=== PATIENT | female | born 2000 | race Caucasian/White ===

== ENCOUNTER 2023-07-04 14:00 | Outpatient (OUT) | payer BC, SELFPAY ==
--- NOTE | 2023-07-04 | US_ITS ---
[address] [address] Patient Name: SIDDHARTH FRANK MRN: [id number] date: 2000 Sex: F Assigned Patient Location: US Current Patient Location: US Accession/Order Number: [id number] Exam Date: 07/04/2023 14:02 Report Date: 07/04/2023 15:43 At the request of: ALEX HOWARD Procedure: US OB transvaginal EXAMINATION: US OB transvaginal HISTORY: MISSED MENSES COMPARISON: No relevant comparison available. FINDINGS: Whittington intrauterine gestation Gestational sac: 4.87 cm, 10 weeks 4 days CRL: 2.66 cm, 9 weeks 3 days Yolk sac: 5.6 mm Heart rate: 169 beats minute Cervix: Closed, 3.7 cm Clinical age: 10 weeks 1 day Clinical JORDI: 01/29/2024 Ultrasound age: 9 weeks 3 days Ultrasound JORDI: 02/03/2024 US/US OB transvaginal IMPRESSION: Viable whittington intrauterine gestation measuring 9 weeks 3 days Electronically authenticated by: NEW DIAZ Date: 07/04/2023 15:43
== END 2023-07-04 14:01 | disposition home or self-care (01) ==
LOC: US 14:01
PROVIDERS: Visit Provider Obstetrics & Gynecology
DX: Z34.91 Encounter for supervision of normal pregnancy, unspecified, first trimester (principal); Z3A.10 10 weeks gestation of pregnancy; N92.6 Irregular menstruation, unspecified
CPT/HCPCS: 76817

== ENCOUNTER 2023-07-06 08:11 | Outpatient (OUT) | payer BC, SELFPAY ==
--- OUTSIDE RECORDS SUMMARY | 2023-07-06 08:13 | XMS_ITS | CCD ---
Author Name Unknown Address [address] [place] [address] Organization [facility] Care Team Providers Care Maternal Fetal Physician Name Role Phone Trena Wall Unavailable Alison RECONCILIATION MANAGER-C, Emerald Franco Primary Care Unavailable Alison RECONCILIATION MANAGER-C, Emerald A Attending Unavailable Alison RECONCILIATION MANAGER-C, Emerald A Attending Unavailable Alison RECONCILIATION MANAGER-C, Emerald A Primary Care Unavailable Alison RECONCILIATION MANAGER-C, Emerald A Primary Care Unavailable Alison RECONCILIATION MANAGER-C, Emerald A Attending Unavailable Alison RECONCILIATION MANAGER-C, Emerald A Primary Care Unavailable Alison RECONCILIATION MANAGER-C, Emerald A Attending Unavailable Medications Current Medications Medication Drug Class(es) Dates Sig (Normalized) Sig (Original) hydrOXYzine hydrochloride 10 mg oral tablet (1 source) Antihistamine Start: 08-15-2022 take 1 tablet by mouth twice daily as needed hydrOXYzine HCl 10 MG 1 tablet as needed Orally twice daily for 30 day(s) Jul, Active levonorgestrel 1.5 mg oral tablet (1 source) Progestin, Progestin-containin g Intrauterine Device take 1.5 mg by mouth once Levonorgestrel 1.5 MG as directed Orally once for 28 days Active Completed/Discontinued Medications Medication Drug Class(es) Dates Sig (Normalized) Sig (Original) Falmina (1 source) Falmina Not-Taking sertraline 25 mg oral tablet (1 source) Serotonin Reuptake Inhibitor Start: 12-19-2018 take 1 tablet by mouth every twenty-four hours Zoloft 25 MG 1 tablet Orally Once a day for 90 days Nov, Not-Taking Problems Problem Classification Problem Date Documented Da te Episodic/Chronic Anxiety disorders (3 sources) Generalized anxiety disorder; Translations: [Generalized anxiety disorder] Chronic Results Test Name Value Interpretation Reference Range Facil ity Patient Handouton 04-05-2022 Patient Handout Neurology Tension Headache, Adult A tension headache is a feeling of pain, pressure, or aching in the head. It is often felt over the front and sides of the head. Tension headaches can last from 30 minutes to several days. What are the causes? The cause of this condition is not known. Sometimes, tension headaches are brought on by stress, worry (anxiety), or depression. Other things that may set them off include: ? Alcohol. ? Too much caffeine or caffeine withdrawal. ? Colds, flu, or sinus infections. ? Dental problems. This can include clenching your teeth. ? Being tired. ? Holding your head and neck in the same position for a long time, such as while using a computer. ? Smoking. ? Arthritis in the neck. What are the signs or symptoms? ? Feeling pressure around the head. ? A dull ache in the head. ? Pain over the front and sides of the head. ? Feeling sore or tender in the muscles of the head, neck, and shoulders. How is this treated? This condition may be treated with lifestyle changes and with medicines that help relieve symptoms. Follow these instructions at home: Managing pain ? Take pgrg-ytt-rgvrweu and prescription medicines only as told by your doctor. ? When you have a headache, lie down in a dark, quiet room. ? If told, put ice on your head and neck. To do this: ? Put ice in a plastic bag. ? Place a towel between your skin and the bag. ? Leave the ice on for 20 minutes, 2?3 times a day. ? Take off the ice if your skin turns bright red. This is very important. If you cannot feel pain, heat, or cold, you have a greater risk of damage to the area. ? If told, put heat on the back of your neck. Do this as often as told by your doctor. Use the heat source that your doctor recommends, such as a moist heat pack or a heating pad. ? Place a towel between your skin and the heat source. ? Leave the heat on for 20?30 minutes. ? Take off the heat if your skin turns bright red. This is very important. If you cannot feel pain, heat, or cold, you have a greater risk of getting burned. Eating and drinking ? Eat meals on a regular schedule. ? If you drink alcohol: ? Limit how much you have to: ? 0?1 drink a day for women who are not . ? 0?2 drinks a day for men. ? Know how much alcohol is in your drink. In the [place] one drink equals one 12 oz bottle of beer (355 mL), one 5 oz glass of wine (148 mL), or one 1? oz glass of hard liquor (44 mL). ? Drink enough fluid to keep your pee (urine) pale yellow. ? Do not use a lot of caffeine, or stop using caffeine. Lifestyle ? Get 7?9 hours of sleep each night. Or get the amount of sleep that your doctor tells you to. ? At bedtime, keep computers, phones, and tablets out of your room. ? Find ways to lessen your stress. This may include: ? Exercise. ? Deep breathing. ? Yoga. ? Listening to music. ? Thinking positive thoughts. ? Sit up straight. Try to relax your muscles. ? Do not smoke or use any products that contain nicotine or tobacco. If you need help quitting, ask your doctor. General instructions ? Avoid things that can bring on headaches. Keep a headache journal to see what may bring on headaches. For example, write down: ? What you eat and drink. ? How much sleep you get. ? Any change to your diet or medicines. ? Keep all follow-up visits. Contact a doctor if: ? Your headache does not get better. ? Your headache comes back. ? You have a headache, and sounds, light, or smells bother you. ? You feel like you may vomit, or you vomit. ? Your stomach hurts. Get help right away if: ? You all of a sudden get a very bad headache with any of these things: ? A stiff neck. ? Feeling like you may vomit. ? Vomiting. ? Feeling mixed up (confused). ? Feeling weak in one part or one side of your body. ? Having trouble seeing or speaking, or both. ? Feeling short of breath. ? A rash. ? Feeling very sleepy. ? Pain in your eye or ear. ? Trouble walking or balancing. ? Feeling like you will faint, or you faint. Summary ? A tension headache is pain, pressure, or aching in your head. ? Tension headaches can last from 30 minutes to several days. ? Lifestyle changes and medicines may help relieve pain. This information is not intended to replace advice given to you by your health care provider. Make sure you discuss any questions you have with your health care provider. Document Revised: 03/09/2021 Document Reviewed: 03/09/2021 ElseproVITAL Patient Education ? 2021 [employer]. [facility] Vital Signs Date Time Vital Sign Value Performing Clinician Facility 08-15-2022 11:20-0500 Body height 156.21 cm Trena Wall Other [facility] Other 08-15-2022 11:20-0500 Body mass index (BMI) [Ratio] 26.58 kg/m2 Trena Gaitanault Other [facility] Other 08-15-2022 11:20-0500 Body temperature 98.2 [degF] Trena Gaitanault Other [facility] Other 08-15-2022 11:20-0500 Body weight 64.86 kg Trena Wall Other [facility] Other 08-15-2022 11:20-0500 Diastolic blood pressure 73 mm[Hg] Trena Wall Other [facility] Other 08-15-2022 11:20-0500 Respiratory rate 18 /min Trena Gaitanault Other [facility] Other 08-15-2022 11:20-0500 SaO2% (BldA) [Mass fraction] 97 % Trena Gaitanault Other [facility] Other 08-15-2022 11:20-0500 Systolic blood pressure 119 mm[Hg] Trena Gaitanault Other [facility] Other Encounters Encounter Date Encounter Type Care Provider Facility Start: 07-04-2023 End: 07-04-2023 ambulatory Not Available Start: 04-03-2023 End: 04-04-2023 ambulatory Emerald A Alison RECONCILIATION MANAGER-C Facility: [facility] Start: 03-04-2023 End: 03-05-2023 ambulatory Emerald A Alison RECONCILIATION MANAGER-C Facility[facility] Start: 08-16-2022 End: 08-17-2022 ambulatory Emerald A Alison RECONCILIATION MANAGER-C Facility: [facility] Start: 08-15-2022 End: 08-15-2022 ambulatory Trena Duke Other [facility] Other Start: 08-15-2022 Office outpatient ne w 20 minutes Trena Duke [facility] Start: 04-05-2022 End: 04-06-2022 ambulatory Emerald A Alison RECONCILIATION MANAGER-C Facility: [facility] Payers Date Payer Category Payer [facility] [id number] 2000 Unknown [id number] 2.16.8 [id number] 2000 Unknown [id number] 2.16.8 [id number] 2000 Unknown [id number] 2.16.8 [id number]. 2000 Unknown [id number] 2.16.84 [id number] 2000 Unknown [id number] 2.16.84 [id number] Social History Date Type Detail Facility Unknown if ever smoked [facility] Other Sex Assigned At Sex Assigned At Bir th [facility] Other Evaluation note 08-15-2022 Note Date & Type Note Facility 08-15-2022 Evaluation note Encounter Date Diagnosis Assessment Notes Jul, Anxiety (ICD-10 - F41.9) Take medication as directed. May cut in half. Follow up with primary care provider if needed or establish with [facility] Other History general Narrative - Reported Note Date & Type Note Facility History general Narrative - Reported Type Medical History anxiety Surgical History oral surgery [facility] [employer] Other Summary Purpose Family History No Family History Records FoundNo Family History Records Found Advance Directives No Advanced Directives Records FoundNo Advanced Directives Records Found Additional Source Comments REASON FOR VISIT (unrecogniz ed section and content) ANXIETY INFORMATION SOURCE (unrecogn ized section and content) DATE CREATED AUTHOR 04/05/2023 [facility] DATE CREATED AUTHOR AUTHOR'S ORGANIZ ATION 07/05/2023 [facility] dical Specialists [facility] FOR RECORDS PERTAINING TO PATIENTS WHO ARE OR HAVE BEEN ENROLLED IN A CHEMICAL DEPENDENCY/SUBSTANCEABUSE PROGRAM, SOME INFORMATION MAY BE OMITTED. This clinical summary was aggregated from multiple sources. Caution should be exercised in using it in the provision of clinical care. This summary normalizes information from multiple sources, and as a consequence, information in this document may materially change the coding, format and clinical context of patient data. In addition, data may be omitted in some cases. CLINICAL DECISIONS SHOULD BE BASED ON THE PRIMARY CLINICAL RECORDS. [facility] [employer]. provides no warranty or guarantee of the accuracy or completeness of information in this document.
[2023-07-06 08:53] LABS: Basophils Absolute Auto 0.1 10^3/uL (0.0-0.1); Basophils Percent Auto 0.5 % (0.2-2.0); Eosinophils Absolute Auto 0.2 10^3/uL (0.0-0.7); Eosinophils Percent Auto 1.6 % (0.9-7.0); Hematocrit 39.5 % (36.0-48.0); Hemoglobin 13.6 g/dL (12.0-16.0); Immature Granulocytes Abs Auto 0.04 10^3/uL (0.00-0.03); Immature Granulocytes Pct Auto 0.4 % (0.0-0.5); Lymphocytes Percent Auto 27.5 % (20.5-60.0); Mean Corpuscular HGB Conc 34.4 g/dL (29.9-35.2); Mean Corpuscular Hemoglobin 31.9 pg (26.7-34.0); Mean Corpuscular Volume 92.5 fL (81.0-99.0); Mean Platelet Volume 9.7 fL (9.5-13.5); Monocytes Absolute Auto 0.9 10^3/uL (0.3-0.8); Monocytes Percent Auto 8.5 % (1.7-12.0); Neutrophils Absolute Auto 6.7 10^3/uL (1.4-6.5); Neutrophils Percent Auto 61.5 % (43.0-75.0); Platelet Count 298 10^3/uL (150-450); Red Blood Count 4.27 10^6/uL (4.20-5.40); Red Cell Distribution Width 11.9 % (11.0-15.0); White Blood Count 10.8 10^3/uL (4.0-11.0)
[2023-07-06 09:39] LABS: Estimated Average Glucose 97 mg/dL
[2023-07-07 08:15] LABS: HBsAg Screen Negative (Negative); HCV Ab Non Reactive (Non Reactive); Rapid Plasma Reagin, Quant Non Reactive titer (NonRea<1:1)
[2023-07-07 09:07] LABS: HIV Ab/p24 Ag Screen Non Reactive (Non Reactive)
[2023-07-07 10:07] LABS: Rubella Antibodies, IgG 3.67 index (Immune >0.99)
== END 2023-07-06 08:12 | disposition home or self-care (01) ==
LOC: LAB 08:11
PROVIDERS: Visit Provider Obstetrics & Gynecology
DX: N92.6 Irregular menstruation, unspecified (principal); Z36.0 Encounter for antenatal screening for chromosomal anomalies
CPT/HCPCS: 36415; 83036; 85025; 86592; 86762; 86803; 86850; 86900; 86901; 87086; 87340; 87389

== ENCOUNTER 2023-08-21 20:53 | Outpatient (REF) | payer BC, SELFPAY ==
--- OUTSIDE RECORDS SUMMARY | 2023-08-21 20:56 | XMS_ITS | CCD ---
Author Name Unknown Address [address] [place] [address] Organization [facility] Care Team Providers Care Hearing Therapy Teacher Name Role Phone Trena Wall Unavailable Alison MANAGER ACCOUNT MANAGEMENT-C, Emerald Franco Primary Care Unavailable Alison MANAGER ACCOUNT MANAGEMENT-C, Emerald A Attending Unavailable Alison MANAGER ACCOUNT MANAGEMENT-C, Emerald Alek Attending Unavailable Alison MANAGER ACCOUNT MANAGEMENT-C, Emerald A Primary Care Unavailable Alison MANAGER ACCOUNT MANAGEMENT-C, Emerald A Primary Care Unavailable Alison MANAGER ACCOUNT MANAGEMENT-C, Emerald A Attending Unavailable Alison MANAGER ACCOUNT MANAGEMENT-C, Emerald A Primary Care Unavailable Alison MANAGER ACCOUNT MANAGEMENT-C, Emerald A Attending Unavailable ALEX HOWARD Attending Unavailable Medications Current Medications Medication Drug [...] Results Test Name Value Interpretation Reference Range Balaji kim Patient Handouton 04-05-2022 Patient Handout Neurology Tension [...] instructions at home: Managing pain ? Take vkjf-bdg-kqahiks and prescription medicines only as told by [...] provider. Document Revised: 03/09/2021 Document Reviewed: 03/09/2021 ElseOcean Executive Patient Education ? 2021 [employer]. [facility] Vital Signs Date Time Vital Sign Value Performing Clinician Facility 08-15-2022 11:20-0500 Body height 156.21 cm Trena Gaitanault Other [facility] Other 08-15-2022 11:20-0500 Body mass index (BMI) [Ratio] 26.58 kg/m2 Trena Duke Other [facility] Other 08-15-2022 11:20-0500 Body temperature 98.2 [degF] Trena Duke Other [facility] Other 08-15-2022 11:20-0500 Body weight 64.86 kg Trena Gaitanault Other [facility] Other 08-15-2022 11:20-0500 Diastolic blood pressure 73 mm[Hg] Trena Duke Other [facility] Other 08-15-2022 11:20-0500 Respiratory rate 18 /min Trena Duke Other [facility] Other 08-15-2022 11:20-0500 SaO2% (BldA) [Mass fraction] 97 % Trena Duke Other [facility] Other 08-15-2022 11:20-0500 Systolic blood pressure 119 mm[Hg] Trena Duke Other [facility] Other Encounters Encounter Date Encounter Type Care Provider Facility Start: 07-25-2023 End: 07-25-2023 ambulatory ALEX LEE Not Available Start: 07-04-2023 End: 07-04-2023 ambulatory ALEX LEE Not Available Start: 04-03-2023 End: 04-04-2023 ambulatory Emerald A Alison MANAGER ACCOUNT MANAGEMENT-C Facility: [facility] Start: 03-04-2023 End: 03-05-2023 ambulatory Emerald A Alison MANAGER ACCOUNT MANAGEMENT-C Facility: [facility] Start: 08-16-2022 End: 08-17-2022 ambulatory Emerald A Alison MANAGER ACCOUNT MANAGEMENT-C Facility[facility] Start: 08-15-2022 End: 08-15-2022 ambulatory Trena Wall Other [facility] Other Start: 08-15-2022 Office outpatient ne w 20 minutes Trena Wall [facility] Start: 04-05-2022 End: 04-06-2022 ambulatory Emerald A Alison MANAGER ACCOUNT MANAGEMENT-C Facility: [facility] Payers Date Payer Category Payer [facility] [id number] 2000 Unknown [id number] 2.16.8 [id number]. 2000 Unknown [id number] 2.16.8 [id number]. 2000 Unknown [id number] 2.16.8 [id number] 2000 Unknown [id number] 2.16.84 [id number] 2000 Unknown [id number] 2.16.84 [id number] 2000 Unknown [id number] 2.16.84 [id number] Social History Date Type Detail Facility Unknown if ever smoked [facility] Other Sex Assigned At Sex Assigned At Bir th [facility] Other Evaluation note 08-15-2022 Note Date & Type Note Facility 08-15-2022 Evaluation note Encounter Date Diagnosis Assessment Notes Jul, Anxiety (ICD-10 - F41.9) Take medication as directed. May cut in half. Follow up with primary care provider if needed or establish with [facility] Other History general Narrative - Reported Note Date & Type Note Facility History general Narrative - Reported Type Medical History anxiety Surgical History oral surgery [facility] Other Summary Purpose Family History No Family History Records FoundNo Family History Records Found Advance Directives No Advanced Directives Records FoundNo Advanced Directives Records Found Additional Source Comments REASON FOR VISIT (unrecogniz ed section and content) ANXIETY INFORMATION SOURCE (unrecogn ized section and content) DATE CREATED AUTHOR 04/05/2023 [facility] DATE CREATED AUTHOR AUTHOR'S ORGANIZ ATION 07/26/2023 [facility] dical Specialists [employer] FOR RECORDS PERTAINING TO PATIENTS WHO ARE [...] BE BASED ON THE PRIMARY CLINICAL RECORDS. [facility] [employer]. provides no warranty or guarantee of the accuracy or completeness of information in this document.
[2023-08-26 13:07] LABS: Age Gdln ACOG Testing Note (.); IGP, rfx Aptima HPV ASCU Note (.)
== END 2023-08-21 20:54 | disposition home or self-care (01) ==
LOC: LAB 20:53
PROVIDERS: Visit Provider Obstetrics & Gynecology
DX: Z01.419 Encounter for gynecological examination (general) (routine) without abnormal findings (principal)
CPT/HCPCS: G0145

== ENCOUNTER 2023-09-12 14:34 | Outpatient (OUT) | payer BC, SELFPAY ==
--- NOTE | 2023-09-12 14:38 | US_ITS ---
[address] [address] Patient Name: SIDDHARTH FRANK MRN: [id number] date: 2000 Sex: F Assigned Patient Location: [facility] Current Patient Location: [facility] Accession/Order Number: [id number] Exam Date: 09/12/2023 14:39 Report Date: 09/12/2023 15:51 At the request of: ALEX HOWARD Procedure: US OB cervical length EXAMINATION: US OB anatomy, US OB cervical length HISTORY: ANATOMY COMPARISON: Ultrasound OB transvaginal 07/04/2023 TECHNIQUE: Transabdominal sonographic examination was performed for obstetrical and evaluation. FINDINGS: Number: 1 Heart Rate: 160.0 bpm H.B. /min Amniotic Fluid Volume: Subjectively normal Placental Location: POSTERIOR with lower margin 6.4 cm from os. Cervix Length: 4 cm , closed. ANATOMY: Normal Structures -cerebellum, choroid plexus, cisterna magna, lateral cerebral ventricles, orbits, midline falx, hard palate, four-chamber heart, RVOT, LVOT, stomach, kidneys, bladder, umbilical cord insertion into abdomen, three-vessel cord, right upper extremity, left upper extremity, right lower extremity, left lower extremity. SUBOPTIMALLY SEEN: Spine due to position ABNORMALITIES: None BIOMETRY: BPD: 4.8 cm 20 weeks 3 days HC: 17.5 cm 20 weeks 0 days AC: 15.3 cm 20 weeks 3 days FL: 3.1 cm 19 weeks 5 days EFW:333.4 grams; FL/AC: 20.5 FL/BPD: 65.6 HC/AC: 1.1 GESTATIONAL AGE: Age by EDC: 20 weeks 1 days JORDI by EDC: 01/29/2024 Age by current US: 20 weeks 1 days JORDI by current US: 01/29/2024 US/US OB cervical length IMPRESSION: 1. Single live intrauterine with growth detailed above. 2. Suboptimal visualization of the spine due to position. Electronically authenticated by: STAN HANDLEY Date: 09/12/2023 15:51
--- NOTE | 2023-09-12 14:38 | US_ITS ---
[address] [address] Patient Name: SIDDHARTH FRANK MRN: [id number] date: 2000 Sex: F Assigned Patient Location: [facility] Current Patient Location: [facility] Accession/Order Number: [id number] Exam Date: 09/12/2023 14:39 Report Date: 09/12/2023 15:51 At the request of: ALEX HOWARD Procedure: US OB anatomy EXAMINATION: US OB anatomy, US OB cervical length HISTORY: ANATOMY COMPARISON: Ultrasound OB transvaginal 07/04/2023 TECHNIQUE: Transabdominal sonographic examination was performed for obstetrical and evaluation. FINDINGS: Number: 1 Heart Rate: 160.0 bpm H.B. /min Amniotic Fluid Volume: Subjectively normal Placental Location: POSTERIOR with lower margin 6.4 cm from os. Cervix Length: 4 cm , closed. ANATOMY: Normal Structures -cerebellum, choroid plexus, cisterna magna, lateral cerebral ventricles, orbits, midline falx, hard palate, four-chamber heart, RVOT, LVOT, stomach, kidneys, bladder, umbilical cord insertion into abdomen, three-vessel cord, right upper extremity, left upper extremity, right lower extremity, left lower extremity. SUBOPTIMALLY SEEN: Spine due to position ABNORMALITIES: None BIOMETRY: BPD: 4.8 cm 20 weeks 3 days HC: 17.5 cm 20 weeks 0 days AC: 15.3 cm 20 weeks 3 days FL: 3.1 cm 19 weeks 5 days EFW:333.4 grams; FL/AC: 20.5 FL/BPD: 65.6 HC/AC: 1.1 GESTATIONAL AGE: Age by EDC: 20 weeks 1 days JORDI by EDC: 01/29/2024 Age by current US: 20 weeks 1 days JORDI by current US: 01/29/2024 US/US OB anatomy IMPRESSION: 1. Single live intrauterine with growth detailed above. 2. Suboptimal visualization of the spine due to position. Electronically authenticated by: STAN HANDLEY Date: 09/12/2023 15:51
== END 2023-09-12 14:35 | disposition home or self-care (01) ==
LOC: NOMS 14:34
PROVIDERS: Visit Provider Obstetrics & Gynecology
DX: Z36.89 Encounter for other specified antenatal screening (principal)
CPT/HCPCS: 76805; 76817

== ENCOUNTER 2023-09-28 08:56 | Outpatient (OUT) | payer BC, SELFPAY ==
--- OUTSIDE RECORDS SUMMARY | 2023-09-28 08:59 | XMS_ITS | CCD ---
Author Organization [facility] Care Team Providers Care Chain Carrier Name Role Phone Trena Wall Unavailable Alison PLAN COORDINATOR-C, Emerald Alek Primary Care Unavailable Alison PLAN COORDINATOR-C, Emerald A Attending Unavailable Alison PLAN COORDINATOR-C, Emerald A Attending Unavailable Alison PLAN COORDINATOR-C, Emerald A Primary Care Unavailable Alison PLAN COORDINATOR-C, Emerald A Primary Care Unavailable Alison PLAN COORDINATOR-C, Emerald A Attending Unavailable Alison PLAN COORDINATOR-C, Emerald A Primary Care Unavailable Alison PLAN COORDINATOR-C, Emerald A Attending Unavailable ALEX HOWARD Attending Unavailable ALEX HOWARD Attending Unavailable NICOLE CASTILLO Attending Unavailable Medications Current Medications Medication Drug [...] Interpretation Reference Range Facil ity Patient Handouton 10-13-2022 Patient Handout Neurology Tension Headache, Adult A [...] instructions at home: Managing pain ? Take lqkt-chy-mzsrbgm and prescription medicines only as told by [...] provider. Document Revised: 03/09/2021 Document Reviewed: 03/09/2021 Elsevier Patient Education ? 2021 [employer]. [facility] Vital Signs Date Time Vital Sign Value Performing Clinician Facility 08-15-2022 11:20-0500 Body height 156.21 cm Trena Wall Other [email or web address] Other 08-15-2022 11:20-0500 Body mass index (BMI) [Ratio] 26.58 kg/m2 Trena Gaitanault Other [email or web address] Other 08-15-2022 11:20-0500 Body temperature 98.2 [degF] Trena Gaitanault Other [email or web address] Other 08-15-2022 11:20-0500 Body weight 64.86 kg Trena Wall Other [email or web address] Other 08-15-2022 11:20-0500 Diastolic blood pressure 73 mm[Hg] Trena Gaitanault Other [email or web address] Other 08-15-2022 11:20-0500 Respiratory rate 18 /min Trena Gaitanault Other [email or web address] Other 08-15-2022 11:20-0500 SaO2% (BldA) [Mass fraction] 97 % Trena Gaitanault Other [email or web address] Other 08-15-2022 11:20-0500 Systolic blood pressure 119 mm[Hg] Trena Gaitanault Other [email or web address] Other Encounters Encounter Date Encounter Type Care Provider Facility Start: 09-12-2023 End: 09-12-2023 ambulatory NICOLE CASTILLO Not Available Start: 08-21-2023 End: 08-21-2023 ambulatory ALEX LEE Not Available Start: 07-25-2023 End: 07-25-2023 ambulatory ALEX LEE Not Available Start: 07-04-2023 End: 07-04-2023 ambulatory ALEX LEE Not Available Start: 04-03-2023 End: 04-04-2023 ambulatory Emerald A Alison PLAN COORDINATOR-C Facility: [facility] Start: 03-04-2023 End: 03-05-2023 ambulatory Emerald A Alison PLAN COORDINATOR-C Facility: [facility] Start: 08-16-2022 End: 08-17-2022 ambulatory Emerald A Alison PLAN COORDINATOR-C Facility: [facility] Start: 08-15-2022 End: 08-15-2022 ambulatory Trena Wall Other [email or web address] Other Start: 08-15-2022 Office outpatient ne w 20 minutes Trena Wall [facility] Start: 04-05-2022 End: 04-06-2022 ambulatory Emerald A Alison PLAN COORDINATOR-C Facility: [facility] Payers Date Payer Category Payer [facility] [id number] 2000 Unknown [id number] 2.16.8 [id number]. 2000 Unknown [id number] 2.16.8 [id number] 2000 Unknown [id number] 2.16.8 [id number]. 2000 Unknown [id number] 2.16.84 [id number]. 2000 Unknown [id number] 2.16.84 [id number] 2000 Unknown [id number] 2.16.84 [id number] 2000 Unknown [id number] 2.16.84 [id number] 2000 Unknown [id number] 2.16.84 [id number] Social History Date Type Detail Facility Unknown if ever smoked [email or web address] Other Sex Assigned At Sex Assigned At Bir th [email or web address] Other Evaluation note 08-15-2022 Note Date & Type Note Facility 08-15-2022 Evaluation note Encounter Date Diagnosis Assessment Notes Jul, Anxiety (ICD-10 - F41.9) Take medication as directed. May cut in half. Follow up with primary care provider if needed or establish with [email or web address] Other History general Narrative - Reported Note Date & Type Note Facility History general Narrative - Reported Type Medical History anxiety Surgical History oral surgery [email or web address] Other Summary Purpose Family History No Family History Records FoundNo Family History Records Found Advance Directives No Advanced Directives Records FoundNo Advanced Directives Records Found Additional Source Comments REASON FOR VISIT (unrecogniz ed section and content) ANXIETY INFORMATION SOURCE (unrecogn ized section and content) DATE CREATED AUTHOR 04/05/2023 [facility] DATE CREATED AUTHOR AUTHOR'S ORGANIZ ATION 09/14/2023 [facility] dical Specialists [facility] FOR RECORDS PERTAINING TO PATIENTS WHO ARE [...] BE BASED ON THE PRIMARY CLINICAL RECORDS. [facility] [employer] [facility]. provides no warranty or guarantee of the accuracy or completeness of information in this document.
== END 2023-09-28 08:57 | disposition home or self-care (01) ==
LOC: LAB 08:57
PROVIDERS: Visit Provider Obstetrics & Gynecology
DX: Z34.92 Encounter for supervision of normal pregnancy, unspecified, second trimester (principal)
CPT/HCPCS: 36415; 82105

== ENCOUNTER 2023-10-04 16:30 | Outpatient (REF) | payer BC, SELFPAY ==
--- OUTSIDE RECORDS SUMMARY | 2023-10-04 16:45 | XMS_ITS | CCD ---
Author Organization [facility] Care Team Providers Care Programs Manager Name Role Phone Trena Wall Unavailable Alison FAMILY LIFE EDUCATOR-C, Emerald Alek Primary Care Unavailable Alison FAMILY LIFE EDUCATOR-C, Emerald A Attending Unavailable Alison FAMILY LIFE EDUCATOR-C, Emerald A Attending Unavailable Alison FAMILY LIFE EDUCATOR-C, Emerald A Primary Care Unavailable Alison FAMILY LIFE EDUCATOR-C, Emerald A Primary Care Unavailable Alison FAMILY LIFE EDUCATOR-C, Emerald A Attending Unavailable Alison FAMILY LIFE EDUCATOR-C, Emerald A Primary Care Unavailable Alison FAMILY LIFE EDUCATOR-C, Emerald A Attending Unavailable ALEX HOWARD Attending [...] instructions at home: Managing pain ? Take djqc-qbn-hmjfwao and prescription medicines only as told by [...] Reviewed: 03/09/2021 Elsevier Patient Education ? 2021 [employer] ([employer]). [facility] Vital Signs Date Time Vital Sign Value Performing Clinician Facility 08-15-2022 11:20-0500 Body height 156.21 cm Trena Wall Other [facility] Other 08-15-2022 11:20-0500 Body mass index (BMI) [Ratio] 26.58 kg/m2 Trena Gaitanault Other [facility] Other 08-15-2022 11:20-0500 Body temperature 98.2 [degF] Trena Gaitanault Other [facility] Other 08-15-2022 11:20-0500 Body weight 64.86 kg Trena Wall Other [facility] Other 08-15-2022 11:20-0500 Diastolic blood pressure 73 mm[Hg] Trena Gaitanault Other [facility] Other 08-15-2022 11:20-0500 Respiratory rate 18 /min Trena Gaitanault Other [facility] Other 08-15-2022 11:20-0500 SaO2% (BldA) [Mass fraction] 97 % Trena Gaitanault Other [facility] Other 08-15-2022 11:20-0500 Systolic blood pressure 119 mm[Hg] Trena Gaitanault Other [facility] Other Encounters Encounter Date Encounter Type Care Provider Facility Start: 09-12-2023 End: 09-12-2023 ambulatory NICOLE CASTILLO Not Available Start: 08-21-2023 End: 08-21-2023 ambulatory ALEX LEE Not Available Start: 07-25-2023 End: 07-25-2023 ambulatory ALEX LEE Not Available Start: 07-04-2023 End: 07-04-2023 ambulatory ALEX LEE Not Available Start: 04-03-2023 End: 04-04-2023 ambulatory Emerald A Alison FAMILY LIFE EDUCATOR-C Facility: [facility] Start: 03-04-2023 End: 03-05-2023 ambulatory Emerald A Alison FAMILY LIFE EDUCATOR-C Facility: [facility] Start: 08-16-2022 End: 08-17-2022 ambulatory Emerald A Alison FAMILY LIFE EDUCATOR-C Facility: [facility] Start: 08-15-2022 End: 08-15-2022 ambulatory Trena Wall Other [facility] Other Start: 08-15-2022 Office outpatient ne w 20 minutes Trena Wall [facility] Start: 04-05-2022 End: 04-06-2022 ambulatory Emerald A Alison FAMILY LIFE EDUCATOR-C Facility: [facility] Payers Date Payer Category Payer [facility] [[email or web address] [id number] 2000 Unknown [id number] 2.16.8 40.1.679824.3.579.2. 2000 Unknown [id number] 2.16.8 40.1.157685.3.579.2 2000 Unknown [id number] 2.16.8 40.1.706568.3.579.2. 2000 Unknown [id number] 2.16.84 0.1.100269.3.579.2. 2000 Unknown [id number] 2.16.84 0.1.209888.3.579.2.1258 2000 Unknown [id number] 2.16.84 0.1.380945.3.579.2.1259 2000 Unknown [id number] 2.16.84 0.1.396922.3.579.2.1259 2000 Unknown [id number] 2.16.84 0.1.112120.3.579.2.1259 Social History Date Type Detail Facility Unknown if ever smoked [facility] Other Sex Assigned At Sex Assigned At Bir th [facility] Other Evaluation note 08-15-2022 Note Date & Type Note Facility 08-15-2022 Evaluation note Encounter Date Diagnosis Assessment Notes Jul, Anxiety (ICD-10 - F41.9) Take medication as directed. May cut in half. Follow up with primary care provider if needed or establish with ne [facility] Other History general Narrative - Reported Note Date & Type Note Facility History general Narrative - Reported Type Medical History anxiety Surgical History oral surgery [facility] Other Summary Purpose Family History No Family History Records FoundNo Family History Records Found Advance Directives No Advanced Directives Records FoundNo Advanced Directives Records Found Additional Source Comments REASON FOR VISIT (unrecogniz ed section and content) ANXIETY INFORMATION SOURCE (unrecogn ized section and content) DATE CREATED AUTHOR 04/05/2023 [facility] DATE CREATED AUTHOR AUTHOR'S ORGANIZ ATION 09/14/2023 [facility] dical Specialists [facility] FOR RECORDS PERTAINING TO PATIENTS WHO [...] BE BASED ON THE PRIMARY CLINICAL RECORDS. [facility]. provides no warranty or guarantee of the accuracy or completeness of information in this document.
[2023-10-09 00:07] LABS: Gest. Age on Collection Date 23.3 weeks (.); Gestat. Age Based On As provided (.); Insulin Dep Diabetes No (.); OSBR Risk 1 IN 5926 (.); Results Report (.)
== END 2023-10-04 16:31 | disposition home or self-care (01) ==
LOC: LAB 16:30
PROVIDERS: Visit Provider Obstetrics & Gynecology
DX: Z34.92 Encounter for supervision of normal pregnancy, unspecified, second trimester (principal)
CPT/HCPCS: 36415; 82105

== ENCOUNTER 2023-10-10 13:41 | Outpatient (OUT) | payer BC, SELFPAY ==
--- NOTE | 2023-10-10 13:44 | US_ITS ---
[address] [address] Patient Name: SIDDHARTH FRANK MRN: [id number] date: 2000 Sex: F Assigned Patient Location: [place] Current Patient Location: [place] Accession/Order Number: [id number] Exam Date: 10/10/2023 13:48 Report Date: 10/10/2023 14:59 At the request of: ALEX HOWARD Procedure: US OB incomplete anatomy EXAM: US OB incomplete anatomy HISTORY: Follow Up Ultrasound Of Anatomy Z36.2 COMPARISON: Ultrasound OB anatomy 09/12/2023 TECHNIQUE: Transabdominal ultrasound. FINDINGS: Presentation: Breech heart rate: 138 bpm Placenta: Posterior Anatomy: Adequate visualization of the spine. GA: 24 weeks 1 day JORDI: 01/29/2024 US/US OB incomplete anatomy IMPRESSION: 1. Single live intrauterine . 2. Adequate visualization of spine; no appreciable abnormality. Electronically authenticated by: STAN HANDLEY Date: 10/10/2023 14:59
== END 2023-10-10 13:42 | disposition home or self-care (01) ==
LOC: US 13:41
PROVIDERS: Visit Provider Obstetrics & Gynecology
DX: Z36.2 Encounter for other antenatal screening follow-up (principal)
CPT/HCPCS: 76815

== ENCOUNTER 2023-10-19 07:54 | Outpatient (OUT) | payer BC, SELFPAY ==
--- OUTSIDE RECORDS SUMMARY | 2023-10-19 07:55 | XMS_ITS | CCD ---
Author Organization [facility] Care Team Providers Care Hot Metal Mixer Operator Name Role Phone Trena Wall Unavailable Alison FLOOR TECH-C, Emerald Salvador Primary Care Unavailable Alison FLOOR TECH-C, Emerald A Attending Unavailable Alison FLOOR TECH-C, Emerald A Attending Unavailable Alison FLOOR TECH-C, Emerald A Primary Care Unavailable Alison FLOOR TECH-C, Emerald A Primary Care Unavailable Alison FLOOR TECH-C, Emerald A Attending Unavailable Alison FLOOR TECH-C, Emerald A Primary Care Unavailable Alison FLOOR TECH-C, Emerald A Attending Unavailable ALEX HOWARD Attending Unavailable ALEX HOWARD Attending Unavailable NICOLE CASTILLO Attending Unavailable ALEX HOWARD Attending Unavailable Medications [...] instructions at home: Managing pain ? Take lixw-kio-bsvvftv and prescription medicines only as told by [...] provider. Document Revised: 03/09/2021 Document Reviewed: 03/09/2021 ElseInformaat Patient Education ? 2021 [employer]. [facility] Vital Signs Date Time Vital Sign Value Performing Clinician Facility 08-15-2022 11:20-0500 Body height 156.21 cm Trena Gaitanault Other [facility] Other 08-15-2022 11:20-0500 Body mass index (BMI) [Ratio] 26.58 kg/m2 Trena Gaitanault Other [facility] Other 08-15-2022 11:20-0500 Body temperature 98.2 [degF] Trena Duke Other [facility] Other 08-15-2022 11:20-0500 Body weight 64.86 kg Trena Gaitanault Other [facility] Other 08-15-2022 11:20-0500 Diastolic blood pressure 73 mm[Hg] Trena Duke Other [facility] Other 08-15-2022 11:20-0500 Respiratory rate 18 /min Trena Gaitanault Other [facility] Other 08-15-2022 11:20-0500 SaO2% (BldA) [Mass fraction] 97 % Trena Duke Other [facility] Other 08-15-2022 11:20-0500 Systolic blood pressure 119 mm[Hg] Trena Duke Other [facility] Other Encounters Encounter Date Encounter Type Care Provider Facility Start: 10-16-2023 End: 10-16-2023 ambulatory ALEX LEE Not Available Start: 09-12-2023 End: 09-12-2023 ambulatory NICOLE CASTILLO Not Available Start: 08-21-2023 End: 08-21-2023 ambulatory ALEX LEE Not Available Start: 07-25-2023 End: 07-25-2023 ambulatory ALEX LEE Not Available Start: 07-04-2023 End: 07-04-2023 ambulatory ALEX LEE Not Available Start: 04-03-2023 End: 04-04-2023 ambulatory Emerald A Alison FLOOR TECH-C Facility: [facility] Start: 03-04-2023 End: 03-05-2023 ambulatory Emerald A Alison FLOOR TECH-C Facility: [facility] Start: 08-16-2022 End: 08-17-2022 ambulatory Emerald A Alison FLOOR TECH-C Facility: [facility] Start: 08-15-2022 End: 08-15-2022 ambulatory Trena Wall Other [facility] Other Start: 08-15-2022 Office outpatient ne w 20 minutes Trena Wall [facility] Start: 04-05-2022 End: 04-06-2022 ambulatory Emerald A Alison FLOOR TECH-C Facility: [facility] Payers Date Payer Category Payer [facility] [id number] 2000 Unknown [id number] 2.16.8 40.1.997726.3.579.2 2000 Unknown [id number] 2.16.8 40.1.561306.3.579.2 2000 Unknown [id number] 2.16.8 40.1.068096.3.579.2. 2000 Unknown [id number] 2.16.84 0.1.375619.3.579.2.718 2000 Unknown [id number] 2.16.84 0.1.323361.3.579.2.9 2000 Unknown [id number] 2.16.84 0.1.986719.3.579.2.9 2000 Unknown [id number] 2.16.84 0.1.231725.3.579.2.9 2000 Unknown [id number] 2.16.84 0.1.940951.3.579.2.9 2000 Unknown [id number] 2.16.84 0.1.100563.3.579.2.1259 Social History Date Type Detail Facility Unknown if ever smoked [facility] Other Sex Assigned At Sex Assigned At Bir th [facility] Other Evaluation note 08-15-2022 Note Date & Type Note Facility 08-15-2022 Evaluation note Encounter Date Diagnosis Assessment Notes Jul, Anxiety (ICD-10 - F41.9) Take medication as directed. May cut in half. Follow up with primary care provider if needed or establish with [place] [facility] Other History general Narrative - Reported Note Date & Type Note Facility History general Narrative - Reported Type Medical History anxiety Surgical History oral surgery [facility] Other Summary Purpose Family History No Family History Records FoundNo Family History Records Found Advance Directives No Advanced Directives Records FoundNo Advanced Directives Records Found Additional Source Comments REASON FOR VISIT (unrecogniz ed section and content) ANXIETY INFORMATION SOURCE (unrecogn ized section and content) DATE CREATED AUTHOR 04/05/2023 [facility] DATE CREATED AUTHOR AUTHOR'S ORGANIZ ATION 10/18/2023 [facility] dical Specialists EPIC FOR RECORDS PERTAINING [...] BE BASED ON THE PRIMARY CLINICAL RECORDS. [facility] [employer] [facility]. provides no warranty or guarantee of the accuracy or completeness of information in this document.
[2023-10-19 09:12] LABS: Basophils Absolute Auto 0.1 10^3/uL (0.0-0.1); Basophils Percent Auto 0.5 % (0.2-2.0); Eosinophils Absolute Auto 0.2 10^3/uL (0.0-0.7); Eosinophils Percent Auto 1.4 % (0.9-7.0); Hematocrit 35.6 % (36.0-48.0); Hemoglobin 12.1 g/dL (12.0-16.0); Immature Granulocytes Abs Auto 0.25 10^3/uL (0.00-0.03); Immature Granulocytes Pct Auto 2.4 % (0.0-0.5); Lymphocytes Absolute Auto 1.8 10^3/uL (1.2-3.8); Lymphocytes Percent Auto 16.9 % (20.5-60.0); Mean Corpuscular Hemoglobin 32.4 pg (26.7-34.0); Mean Corpuscular Volume 95.2 fL (81.0-99.0); Mean Platelet Volume 10.2 fL (9.5-13.5); Neutrophils Absolute Auto 7.4 10^3/uL (1.4-6.5); Neutrophils Percent Auto 69.8 % (43.0-75.0); Platelet Count 268 10^3/uL (150-450); Red Blood Count 3.74 10^6/uL (4.20-5.40); Red Cell Distribution Width 12.7 % (11.0-15.0); White Blood Count 10.6 10^3/uL (4.0-11.0)
[2023-10-19 09:35] LABS: Glucose 1 Hour 139 mg/dL (<130)
== END 2023-10-19 07:55 | disposition home or self-care (01) ==
PROVIDERS: Visit Provider Obstetrics & Gynecology
DX: Z13.1 Encounter for screening for diabetes mellitus (principal)
CPT/HCPCS: 36415; 82950; 85025

== ENCOUNTER 2023-10-25 06:42 | Outpatient (OUT) | payer BC, SELFPAY ==
--- OUTSIDE RECORDS SUMMARY | 2023-10-25 06:44 | XMS_ITS | CCD ---
Author Organization [facility] Care Team Providers Care Staff Climate Scientist Name Role Phone Trena Wall Unavailable Alison GEOPHYSICAL OBSERVER-C, Emerald Salvador Primary Care Unavailable Alison GEOPHYSICAL OBSERVER-C, Emerald A Attending Unavailable Alison GEOPHYSICAL OBSERVER-C, Emerald A Attending Unavailable Alison GEOPHYSICAL OBSERVER-C, Emerald A Primary Care Unavailable Alison GEOPHYSICAL OBSERVER-C, Emerald A Primary Care Unavailable Alison GEOPHYSICAL OBSERVER-C, Emerald A Attending Unavailable Alison GEOPHYSICAL OBSERVER-C, Emerald A Primary Care Unavailable Alison GEOPHYSICAL OBSERVER-C, Emerald A Attending Unavailable ALEX HOWARD Attending [...] instructions at home: Managing pain ? Take rcto-qjc-clyuoes and prescription medicines only as told by [...] provider. Document Revised: 03/09/2021 Document Reviewed: 03/09/2021 ElseAtheroMed Patient Education ? 2021 [employer]. [facility] Vital Signs Date Time Vital Sign Value Performing Clinician Facility 08-15-2022 11:20-0500 Body height 156.21 cm Trena Gaitanault Other [facility] Other 08-15-2022 11:20-0500 Body mass index (BMI) [Ratio] 26.58 kg/m2 Trena Gaitanault Other [facility] Other 08-15-2022 11:20-0500 Body temperature 98.2 [degF] Trena Duke Other [facility] Other 08-15-2022 11:20-0500 Body weight 64.86 kg Trena Gaitanault Other [facility] Other 08-15-2022 11:20-0500 Diastolic blood pressure 73 mm[Hg] Trena Duke Other [facility] Other 08-15-2022 11:20-0500 Respiratory rate 18 /min Trena Gaitanault Other [facility] Other 08-15-2022 11:20-0500 SaO2% (BldA) [Mass fraction] 97 % Trena Duke Other [facility] Other 08-15-2022 11:20-0500 Systolic blood pressure 119 mm[Hg] Trena Duke Other [facility] Other Encounters Encounter Date Encounter Type Care Provider Facility Start: 10-16-2023 End: 10-16-2023 ambulatory ALEX LEE Not Available Start: 09-12-2023 End: 09-12-2023 ambulatory NICOLE CASTILLO Not Available Start: 08-21-2023 End: 08-21-2023 ambulatory ALEX LEE Not Available Start: 07-25-2023 End: 07-25-2023 ambulatory ALEX LEE Not Available Start: 07-04-2023 End: 07-04-2023 ambulatory ALEX LEE Not Available Start: 04-03-2023 End: 04-04-2023 ambulatory Emerald A Alison GEOPHYSICAL OBSERVER-C Facility: [facility] Start: 03-04-2023 End: 03-05-2023 ambulatory Emerald A Alison GEOPHYSICAL OBSERVER-C Facility: [facility] Start: 08-16-2022 End: 08-17-2022 ambulatory Emerald A Alison GEOPHYSICAL OBSERVER-C Facility: [facility] Start: 08-15-2022 End: 08-15-2022 ambulatory Trena Wall Other [facility] Other Start: 08-15-2022 Office outpatient ne w 20 minutes Trena Wall [facility] Start: 04-05-2022 End: 04-06-2022 ambulatory Emerald A Alison GEOPHYSICAL OBSERVER-C Facility: [facility] Payers Date Payer Category Payer [facility] [id number] 2000 Unknown [id number] 2.16.8 40.1.426340.3.579.2 2000 Unknown [id number] 2.16.8 40.1.248036.3.579.2 2000 Unknown [id number] 2.16.8 40.1.855337.3.579.2. 2000 Unknown [id number] 2.16.84 0.1.688356.3.579.2.718 2000 Unknown [id number] 2.16.84 0.1.716198.3.579.2.9 2000 Unknown [id number] 2.16.84 0.1.273880.3.579.2.9 2000 Unknown [id number] 2.16.84 0.1.463020.3.579.2.9 2000 Unknown [id number] 2.16.84 0.1.774689.3.579.2.9 2000 Unknown [id number] 2.16.84 0.1.525548.3.579.2.1259 Social History Date Type Detail Facility Unknown if ever smoked [facility] Other Sex Assigned At Sex Assigned At Bir th [facility] Other Evaluation note 08-15-2022 Note Date & Type Note Facility 08-15-2022 Evaluation note Encounter Date Diagnosis Assessment Notes Jul, Anxiety (ICD-10 - F41.9) Take medication as directed. May cut in half. Follow up with primary care provider if needed or establish with [place] [facility] Other History general Narrative - Reported Note Date & Type Note Facility History general Narrative - Reported Type Medical History anxiety Surgical History oral surgery [facility] Other Summary Purpose Family History No Family History Records FoundNo Family History Records Found Advance Directives No Advanced Directives Records FoundNo Advanced Directives Records Found Additional Source Comments REASON FOR VISIT (unrecogniz ed section and content) ANXIETY INFORMATION SOURCE (unrecogn ized section and content) DATE CREATED AUTHOR 04/05/2023 [facility] DATE CREATED AUTHOR AUTHOR'S ORGANIZ ATION 10/18/2023 [facility] dical Specialists EPIC FOR RECORDS PERTAINING [...] ON THE PRIMARY CLINICAL RECORDS. [facility]. provides no warranty or guarantee of the accuracy or completeness of information in this document.
[2023-10-25 07:07] LABS: Glucose Fasting 94 mg/dL (<95)
[2023-10-25 08:05] LABS: Glucose 1 Hour 236 mg/dL (<180)
[2023-10-25 09:18] LABS: Glucose 2 Hour 228 mg/dL (<155)
[2023-10-25 10:44] LABS: Glucose 3 Hour 158 mg/dL (<140)
== END 2023-10-25 06:43 | disposition home or self-care (01) ==
LOC: LAB 06:42
PROVIDERS: Visit Provider Obstetrics & Gynecology
DX: R73.09 Other abnormal glucose (principal)
CPT/HCPCS: 36415; 82951; 82952

== ENCOUNTER 2023-11-05 14:23 | Outpatient (OUT) | payer BC, SELFPAY | END 2023-11-05 18:23 | disposition home or self-care (01) | LOC: FBCO 14:23 | PROVIDERS: Visit Provider Obstetrics & Gynecology | DX: O24.419 Gestational diabetes mellitus in pregnancy, unspecified control (principal) | CPT/HCPCS: G0108 ==

== ENCOUNTER 2023-11-08 13:07 | Observation (INO) | payer BC, SELFPAY ==
[2023-11-08 13:21] VITALS: BP 127/71; PULSE 102
--- OUTSIDE RECORDS SUMMARY | 2023-11-08 13:27 | XMS_ITS | CCD ---
Author Organization [facility] Care Team Providers Care Life Insurance Underwriter Name Role Phone Trena Wall Unavailable Alison CHRONOMETER TESTER-C, Emerald Salvador Primary Care Unavailable Alison CHRONOMETER TESTER-C, Emerald A Attending Unavailable Alison CHRONOMETER TESTER-C, Emerald A Attending Unavailable Alison CHRONOMETER TESTER-C, Emerald A Primary Care Unavailable Alison CHRONOMETER TESTER-C, Emerald A Primary Care Unavailable Alison CHRONOMETER TESTER-C, Emerald A Attending Unavailable Alison CHRONOMETER TESTER-C, Emerald A Primary Care Unavailable Alison CHRONOMETER TESTER-C, Emerald A Attending Unavailable ALEX HOWARD Attending [...] instructions at home: Managing pain ? Take xsyf-qje-fxnogti and prescription medicines only as told by [...] provider. Document Revised: 03/09/2021 Document Reviewed: 03/09/2021 ElseMobyko Patient Education ? 2021 [employer]. [facility] Vital Signs Date Time Vital Sign Value Performing Clinician Facility 08-15-2022 11:20-0500 Body height 156.21 cm Trena Gaitanault Other [facility] Other 08-15-2022 11:20-0500 Body mass index (BMI) [Ratio] 26.58 kg/m2 Trena Gaitanault Other [facility] Other 08-15-2022 11:20-0500 Body temperature 98.2 [degF] Trena Duke Other [facility] Other 08-15-2022 11:20-0500 Body weight 64.86 kg Trena Gaitanault Other [facility] Other 08-15-2022 11:20-0500 Diastolic blood pressure 73 mm[Hg] Trena Duke Other [facility] Other 08-15-2022 11:20-0500 Respiratory rate 18 /min Trena Gaitanault Other [facility] Other 08-15-2022 11:20-0500 SaO2% (BldA) [Mass fraction] 97 % Trena Duke Other [facility] Other 08-15-2022 11:20-0500 Systolic blood pressure 119 mm[Hg] Trena Duke Other [facility] Other Encounters Encounter Date Encounter Type Care Provider Facility Start: 10-16-2023 End: 10-16-2023 ambulatory ALEX LEE Not Available Start: 09-12-2023 End: 09-12-2023 ambulatory NICOLE CASTILLO Not Available Start: 08-21-2023 End: 08-21-2023 ambulatory ALEX LEE Not Available Start: 07-25-2023 End: 07-25-2023 ambulatory ALEX LEE Not Available Start: 07-04-2023 End: 07-04-2023 ambulatory ALEX LEE Not Available Start: 04-03-2023 End: 04-04-2023 ambulatory Emerald A Alison CHRONOMETER TESTER-C Facility: [facility] Start: 03-04-2023 End: 03-05-2023 ambulatory Emerald A Alison CHRONOMETER TESTER-C Facility: [facility] Start: 08-16-2022 End: 08-17-2022 ambulatory Emerald A Alison CHRONOMETER TESTER-C Facility: [facility] Start: 08-15-2022 End: 08-15-2022 ambulatory Trena Wall Other [facility] Other Start: 08-15-2022 Office outpatient ne w 20 minutes Trena Wall [facility] Start: 04-05-2022 End: 04-06-2022 ambulatory Emerald A Alison CHRONOMETER TESTER-C Facility: [facility] Payers Date Payer Category Payer [facility] [id number] 2000 Unknown [id number] 2.16.8 40.1.739070.3.579.2 2000 Unknown [id number] 2.16.8 40.1.831608.3.579.2 2000 Unknown [id number] 2.16.8 40.1.510090.3.579.2. 2000 Unknown [id number] 2.16.84 0.1.297563.3.579.2.718 2000 Unknown [id number] 2.16.84 0.1.681432.3.579.2.9 2000 Unknown [id number] 2.16.84 0.1.850521.3.579.2.9 2000 Unknown [id number] 2.16.84 0.1.645384.3.579.2.9 2000 Unknown [id number] 2.16.84 0.1.514879.3.579.2.9 2000 Unknown [id number] 2.16.84 0.1.391644.3.579.2.1259 Social History Date Type Detail Facility Unknown if ever smoked [facility] Other Sex Assigned At Sex Assigned At Bir th [facility] Other Evaluation note 08-15-2022 Note Date & Type Note Facility 08-15-2022 Evaluation note Encounter Date Diagnosis Assessment Notes Jul, Anxiety (ICD-10 - F41.9) Take medication as directed. May cut in half. Follow up with primary care provider if needed or establish with ct [facility] Other History general Narrative - Reported Note Date & Type Note Facility History general Narrative - Reported Type Medical History anxiety Surgical History oral surgery [facility] Other Summary Purpose Family History No Family History Records FoundNo Family History Records Found Advance Directives No Advanced Directives Records FoundNo Advanced Directives Records Found Additional Source Comments REASON FOR VISIT (unrecogniz ed section and content) ANXIETY INFORMATION SOURCE (unrecogn ized section and content) DATE CREATED AUTHOR 04/05/2023 [facility] DATE CREATED AUTHOR AUTHOR'S ORGANIZ ATION 10/18/2023 [facility] dical Specialists EPIC FOR RECORDS PERTAINING [...] BE BASED ON THE PRIMARY CLINICAL RECORDS. [facility]. provides no warranty or guarantee of the accuracy or completeness of information in this document.
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
--- OUTSIDE RECORDS SUMMARY | 2023-11-12 09:44 | XMS_ITS | CCD ---
Author Organization [facility] Care Team Providers Care Motorcycle Engine Assembler Name Role Phone Trena Wall Unavailable Alison DETAIL ASSEMBLER-C, Emerald Franco Primary Care Unavailable Alison DETAIL ASSEMBLER-C, Emerald A Attending Unavailable Alison DETAIL ASSEMBLER-C, Emerald A Attending Unavailable Alison DETAIL ASSEMBLER-C, Emerald A Primary Care Unavailable Alison DETAIL ASSEMBLER-C, Emerald A Primary Care Unavailable Alison DETAIL ASSEMBLER-C, Emerald A Attending Unavailable Alison DETAIL ASSEMBLER-C, Emerald A Primary Care Unavailable Alison DETAIL ASSEMBLER-C, Emerald A Attending Unavailable LEE, ALEX Attending Unavailable ALEX HOWARD Attending Unavailable NICOLE [...] instructions at home: Managing pain ? Take tldq-tzx-nesdsfa and prescription medicines only as told by [...] provider. Document Revised: 03/09/2021 Document Reviewed: 03/09/2021 [email or web address] Patient Education ? 2021 [employer]. [facility] Vital Signs Date Time Vital Sign Value Performing Clinician Facility 08-15-2022 11:20-0500 Body height 156.21 cm Trena Gaitanault Other [facility] Other 08-15-2022 11:20-0500 Body mass index (BMI) [Ratio] 26.58 kg/m2 Trena Duke Other [facility] Other 08-15-2022 11:20-0500 Body temperature 98.2 [degF] Trena Duke Other [facility] Other 08-15-2022 11:20-0500 Body weight 64.86 kg Trena Gaitanault Other [facility] Other 08-15-2022 11:20-0500 Diastolic blood pressure 73 mm[Hg] Trena Duke Other [facility] Other 08-15-2022 11:20-0500 Respiratory rate 18 /min Trena Duke Other [facility] Other 08-15-2022 11:20-0500 SaO2% (BldA) [Mass fraction] 97 % Rtena Duke Other [facility] Other 08-15-2022 11:20-0500 Systolic blood pressure 119 mm[Hg] Trena Duke Other [facility] Other Encounters Encounter Date Encounter Type Care Provider Facility Start: 10-16-2023 End: 10-16-2023 ambulatory ALEX LEE Not Available Start: 09-12-2023 End: 09-12-2023 ambulatory NICOLE CASTILLO Not Available Start: 08-21-2023 End: 08-21-2023 ambulatory ALEX LEE Not Available Start: 07-25-2023 End: 07-25-2023 ambulatory ALEX LEE Not Available Start: 07-04-2023 End: 07-04-2023 ambulatory ALEX LEE Not Available Start: 04-03-2023 End: 04-04-2023 ambulatory Emerald A Alison DETAIL ASSEMBLER-C [facility] Start: 03-04-2023 End: 03-05-2023 ambulatory Emerald A Alison DETAIL ASSEMBLER-C [facility] Start: 08-16-2022 End: 08-17-2022 ambulatory Emerald A Alison DETAIL ASSEMBLER-C Facility: [facility] Start: 08-15-2022 End: 08-15-2022 ambulatory Trena Wall Other [facility] Other Start: 08-15-2022 Office outpatient ne w 20 minutes Trena Wall [facility] Start: 04-05-2022 End: 04-06-2022 ambulatory Emerald A Alison DETAIL ASSEMBLER-C Facility: [facility] Payers Date Payer Category Payer [facility] [id number] 2000 Unknown [id number] 2.16.8 40.1.367771.3.579.2 2000 Unknown [id number] 2.16.8 40.1.729394.3.579.2. 2000 Unknown [id number] 2.16.8 40.1.990207.3.579.2. 2000 Unknown [id number] 2.16.84 0.1.372453.3.579.2.718 2000 Unknown [id number] 2.16.84 0.1.583204.3.579.2.1259 2000 Unknown [id number] 2.16.84 0.1.366024.3.579.2.1259 2000 Unknown [id number] 2.16.84 0.1.980490.3.579.2.9 2000 Unknown [id number] 2.16.84 0.1.811111.3.579.2.9 2000 Unknown [id number] 2.16.84 0.1.762013.3.579.2.1259 Social History Date Type Detail Facility Unknown if ever smoked [facility] Other Sex Assigned At Sex Assigned At Bir th [facility] Other Evaluation note 08-15-2022 Note Date & Type Note Facility 08-15-2022 Evaluation note Encounter Date Diagnosis Assessment Notes Jul, Anxiety (ICD-10 - F41.9) Take medication as directed. May cut in half. Follow up with primary care provider if needed or establish with sc [facility] Other History general Narrative - Reported Note Date & Type Note Facility History general Narrative - Reported Type Medical History anxiety Surgical History oral surgery [facility] Other Summary Purpose Family History No Family History Records FoundNo Family History Records Found Advance Directives No Advanced Directives Records FoundNo Advanced Directives Records Found Additional Source Comments REASON FOR VISIT (unrecogniz ed section and content) ANXIETY INFORMATION SOURCE (unrecogn ized section and content) DATE CREATED AUTHOR 04/05/2023 [facility] DATE CREATED AUTHOR AUTHOR'S BRIANNA ATSUZANNA 10/18/[address] [facility] dical Specialists EPIC FOR RECORDS PERTAINING [...] BE BASED ON THE PRIMARY CLINICAL RECORDS. [facility] [employer] [facility]. provides no warranty or guarantee of the accuracy or completeness of information in this document.
== END 2023-11-08 16:00 | disposition home or self-care (01) ==
PROVIDERS: Admitting Provider Obstetrics & Gynecology; Visit Provider Obstetrics & Gynecology Gynecology
DX: Z04.1 Encounter for examination and observation following transport accident (principal); Z3A.28 28 weeks gestation of pregnancy
CPT/HCPCS: 59025; 76815; 76818; G0378; G0379

== ENCOUNTER 2023-11-21 07:09 | Outpatient (OUT) | payer BC, SELFPAY ==
--- OUTSIDE RECORDS SUMMARY | 2023-11-21 07:12 | XMS_ITS ---
Patient Summarization (C-CDA 2.1 CCD) Created on: November 21, 2023 SIDDHARTH FRANK : 2000 Sex: Female Author Organization Sample organization Care Team Providers Care Desktop Administrator Name Role Phone Trena Wall Unavailable Alison DIE CUTTER-C, Emerald A Primary Care Unavailable Alison DIE CUTTER-C, Emerald A Attending Unavailable Alison DIE CUTTER-C, Emerald A Attending Unavailable Alison DIE CUTTER-C, Emerald A Primary Care Unavailable Alison DIE CUTTER-C, Emerald A Primary Care Unavailable Alison DIE CUTTER-C, Emerald A Attending Unavailable Alison DIE CUTTER-C, Emerald A Primary Care Unavailable Alison DIE CUTTER-C, Emerald A Attending Unavailable LEE, ALEX Attending Unavailable LEE, ALEX Attending Unavailable JONATHAN, NICOLE Attending Unavailable LEE, ALEX Attending Unavailable JONATHAN, NICOLE Attending Unavailable Encounters Encounter Date Encounter Type Care Provider Facility Start: 11-13-2023 End: 11-13-2023 ambulatory NICOLE JONATHAN Not Available Start: 10-16-2023 End: 10-16-2023 ambulatory ALEX LEE Not Available Start: 09-12-2023 End: 09-12-2023 ambulatory NICOLE JONATHAN Not Available Start: 08-21-2023 End: 08-21-2023 ambulatory ALEX LEE Not Available Start: 07-25-2023 End: 07-25-2023 ambulatory ALEX LEE Not Available Start: 07-04-2023 End: 07-04-2023 ambulatory ALEX LEE Not Available Start: 04-03-2023 End: 04-04-2023 ambulatory Emerald A Alison DIE CUTTER-C Facility: [facility] Start: 03-04-2023 End: 03-05-2023 ambulatory Emerald A Alison DIE CUTTER-C Facility: [facility] Start: 08-16-2022 End: 08-17-2022 ambulatory Emerald A Alison DIE CUTTER-C Facility:[facility] Start: 08-15-2022 End: 08-15-2022 ambulatory Trena Gaitanault Other [facility] Other Start: 08-15-2022 Office outpatient ne w 20 minutes Trena Gaitanault [facility] Start: 04-05-2022 End: 04-06-2022 ambulatory Emerald Rosas DIE CUTTER-C Facility:[facility] Medications Current Medications Medication Drug Class(es) Dates [...] a day for 90 days Nov, Not-Taking Payers Date Payer Category Payer [facility] [id number] 2000 Unknown [id number] 2.16.8 40.1.387710.3.579.2 2000 Unknown [id number] 2.16.8 40.1.766447.3.579.2. 2000 Unknown [id number] 2.16.8 40.1.108598.3.579.2. 2000 Unknown [id number] 2.16.84 0.1.737425.3.579.2. 2000 Unknown [id number] 2.16.84 0.1.704173.3.579.2.1259 2000 Unknown [id number] 2.16.84 0.1.244565.3.579.2.1258 2000 Unknown [id number] 2.16.84 0.1.348212.3.579.2.1258 2000 Unknown [id number] 2.16.84 0.1.055662.3.579.2.1258 2000 Unknown [id number] 2.16.84 0.1.806044.3.579.2.1258 2000 Unknown [id number] 2.16.84 0.1.392920.3.579.2.1259 Problems Problem Classification Problem Date Documented Da [...] instructions at home: Managing pain ? Take mczx-jtd-gmhhecg and prescription medicines only as told by [...] provider. Document Revised: 03/09/2021 Document Reviewed: 03/09/2021 [employer] Patient Education ? [address] [facility] Social History Date Type Detail Facility Unknown if ever smoked [facility] Other Sex Assigned At Sex Assigned At Bir th [facility] Other Vital Signs Date Time Vital Sign Value Performing Clinician Facility 08-15-2022 11:20-0500 Body height 156.21 cm Trena Wall Other [facility] Other 08-15-2022 11:20-0500 Body mass index (BMI) [Ratio] 26.58 kg/m2 Trena Wall Other [facility] Other 08-15-2022 11:20-0500 Body temperature 98.2 [degF] Trena Wall Other [facility] Other 08-15-2022 11:20-0500 Body weight 64.86 kg Trena Wall Other [facility] Other 08-15-2022 11:20-0500 Diastolic blood pressure 73 mm[Hg] Trena Wall Other [facility] Other 08-15-2022 11:20-0500 Respiratory rate 18 /min Trena Wall Other [employer] Other 08-15-2022 11:20-0500 SaO2% (BldA) [Mass fraction] 97 % Trena Wall Other [facility] Other 08-15-2022 11:20-0500 Systolic blood pressure 119 mm[Hg] Trena Wall Other [facility] Other Evaluation note 08-15-2022 Note Date & Type Note Facility 08-15-2022 Evaluation note Encounter Date Diagnosis Assessment Notes Jul, Anxiety (ICD-10 - F41.9) Take medication as directed. May cut in half. Follow up with primary care provider if needed or establish with [place] [facility] Other History general Narrative - Reported Note Date & Type Note Facility History general Narrative - Reported Type Medical History anxiety Surgical History oral surgery [facility] Other Summary Purpose Family History No Family History Records FoundNo Family History Records Found Advance Directives No Advanced Directives Records FoundNo Advanced Directives Records Found Additional Source Comments REASON FOR VISIT (unrecogniz ed section and content) ANXIETY INFORMATION SOURCE (unrecogn ized section and content) DATE CREATED AUTHOR 04/05/2023 [facility] DATE CREATED AUTHOR AUTHOR'S ORGANIZ ATION 11/16/[address] [facility] dical Specialists EPIC FOR RECORDS PERTAINING [...] BE BASED ON THE PRIMARY CLINICAL RECORDS. [facility]. provides no warranty or guarantee of the accuracy or completeness of information in this document.
[2023-11-21 19:07] VITALS: BP 130/74; PULSE 87
[2023-11-21 19:08] VITALS: TEMP 36.3
--- NOTE | 2023-11-21 20:00 | US_ITS ---
[address] [address] Patient Name: SIDDHARTH FRANK MRN: [id number] date: 2000 Sex: F Assigned Patient Location: US Current Patient Location: US Accession/Order Number: [id number] Exam Date: 11/21/2023 20:00 Report Date: 11/22/2023 07:26 At the request of: ALEX HOWARD Procedure: US OB growth EXAMINATION: US OB growth HISTORY: GESTATIONAL DIABETES MELLITUS O24.419 COMPARISON: Ultrasound OB anatomy 09/22/2023 FINDINGS: Heart Rate: 147.5 bpm Number: 1.0 Position: BREECH Amniotic Fluid Volume: 14.4 cm Maximum Vertical Pocket: 4.9 cm BIOMETRY: BPD: 7.7 cm cm; 30 weeks 6 days; 63% HC: 27.8 cmcm; 30 weeks 3 days ; 23% AC: 27.6 cm cm; 31 weeks 5 days; 86% FL: 5.6 cm cm; 29 weeks 4 days; 20% EFW: 1648.6 grams; 62% FL/AC: 20.3 FL/BPD: 72.9 HC/AC: 1.0 GESTATIONAL AGE: Age by EDC: 30 weeks 1 days JORDI by EDC: 01/29/2024 Age by US: 30 weeks 5 days JORDI by US: 01/25/2024 US/US OB growth IMPRESSION: 1. Single live intrauterine with growth detailed above. Electronically authenticated by: STAN HANDLEY Date: 11/22/2023 07:26
--- NOTE | 2023-11-21 20:00 | US_ITS ---
[address] [address] Patient Name: SIDDHARTH FRANK MRN: [id number] date: 2000 Sex: F Assigned Patient Location: US Current Patient Location: US Accession/Order Number: [id number] Exam Date: 11/21/2023 20:00 Report Date: 11/22/2023 07:23 At the request of: ALEX HOWARD Procedure: US OB BPP w non-stress EXAMINATION: US OB BPP w non-stress HISTORY: GESTATIONAL DIABETES MELLITUS O24.419 COMPARISON: Ultrasound OB biophysical 11/08/2023 TECHNIQUE: Ultrasound biophysical profile was performed in the radiology department. BREATHING MOVEMENTS: 2.0 GROSS BODY MOVEMENTS: 2.0 TONE: 2.0 QUALITATIVE AMNIOTIC FLUID VOLUME: 2.0 PRESENTATION: BREECH HEART RATE: 147.5 bpm bpm. AMNIOTIC FLUID VOLUME: 14.4 cm GESTATIONAL AGE: 30 weeks 1 days CONCLUSION: Total biophysical profile score 8.0. Electronically authenticated by: STAN HANDLEY Date: 11/22/2023 07:23
== END 2023-11-21 20:35 | disposition home or self-care (01) ==
LOC: US 18:58 → FBC 19:03
PROVIDERS: Visit Provider Obstetrics & Gynecology
DX: O24.419 Gestational diabetes mellitus in pregnancy, unspecified control (principal); Z3A.30 30 weeks gestation of pregnancy
CPT/HCPCS: 76816; 76818

== ENCOUNTER 2023-11-25 07:30 | Outpatient (OUT) | payer BC, SELFPAY ==
--- OUTSIDE RECORDS SUMMARY | 2023-11-25 07:35 | XMS_ITS ---
Patient Summarization (C-CDA 2.1 CCD) Created on: November 25, 2023 SIDDHARTH FRANK : 2000 Sex: Female Author Organization Sample organization Care Team Providers Care Lime Vat Tender Name Role Phone Trena Wall Unavailable Alison SUPPLIER MANAGER-C, Emerald A Primary Care Unavailable Alison SUPPLIER MANAGER-C, Emerald A Attending Unavailable Alison SUPPLIER MANAGER-C, Emerald A Attending Unavailable Alison SUPPLIER MANAGER-C, Meerald A Primary Care Unavailable Alison SUPPLIER MANAGER-C, Emerald A Primary Care Unavailable Alison SUPPLIER MANAGER-C, Emerald A Attending Unavailable Alison SUPPLIER MANAGER-C, Emerald A Primary Care Unavailable Alison SUPPLIER MANAGER-C, Emerald A Attending Unavailable LEE, ALEX Attending [...] 04-03-2023 End: 04-04-2023 ambulatory Emerald A Alison SUPPLIER MANAGER-C Facility: [facility] Start: 03-04-2023 End: 03-05-2023 ambulatory Emerald A Alison SUPPLIER MANAGER-C Facility: [facility] Start: 08-16-2022 End: 08-17-2022 ambulatory Emerald A Alison SUPPLIER MANAGER-C Facility:[facility] Start: 08-15-2022 End: 08-15-2022 ambulatory Trena Gaitanault Other [email or web address] Other Start: 08-15-2022 Office outpatient ne w 20 minutes Trena Gaitanault [facility] Start: 04-05-2022 End: 04-06-2022 ambulatory Emerald Rosas SUPPLIER MANAGER-C Facility:[facility] Medications Current Medications Medication Drug [...] Nov, Not-Taking Payers Date Payer Category Payer [facility] [id number] 2000 Unknown [id number] 2.16.8 40.1.255485.3.579.2 2000 Unknown [id number] 2.16.8 40.1.373934.3.579.2. 2000 Unknown [id number] 2.16.8 40.1.837318.3.579.2. 2000 Unknown [id number] 2.16.84 0.1.050934.3.579.2. 2000 Unknown [id number] 2.16.84 0.1.004117.3.579.2.1259 2000 Unknown [id number] 2.16.84 0.1.289076.3.579.2.1258 2000 Unknown [id number] 2.16.84 0.1.587062.3.579.2.1258 2000 Unknown [id number] 2.16.84 0.1.856859.3.579.2.1258 2000 Unknown [id number] 2.16.84 0.1.723686.3.579.2.1258 2000 Unknown [id number] 2.16.84 0.1.360471.3.579.2.1259 Problems Problem Classification Problem Date Documented Da [...] instructions at home: Managing pain ? Take fomp-zsv-havfeot and prescription medicines only as told by [...] provider. Document Revised: 03/09/2021 Document Reviewed: 03/09/2021 [employer] Patient Education ? 2021 [employer] [facility] Social History Date Type Detail Facility Unknown if ever smoked [email or web address] Other Sex Assigned At Sex Assigned At Bir th [email or web address] Other Vital Signs Date Time Vital Sign Value Performing Clinician Facility 08-15-2022 11:20-0500 Body height 156.21 cm Terna Wall Other [email or web address] Other 08-15-2022 11:20-0500 Body mass index (BMI) [Ratio] 26.58 kg/m2 Trena Wall Other [email or web address] Other 08-15-2022 11:20-0500 Body temperature 98.2 [degF] Trena Wall Other [email or web address] Other 08-15-2022 11:20-0500 Body weight 64.86 kg Trena Wall Other [email or web address] Other 08-15-2022 11:20-0500 Diastolic blood pressure 73 mm[Hg] Trena Wall Other [email or web address] Other 08-15-2022 11:20-0500 Respiratory rate 18 /min Trena Wall Other [email or web address] Other 08-15-2022 11:20-0500 SaO2% (BldA) [Mass fraction] 97 % Trena Wall Other [email or web address] Other 08-15-2022 11:20-0500 Systolic blood pressure 119 mm[Hg] Trena Wall Other [email or web address] Other Evaluation note 08-15-2022 Note Date & Type Note Facility 08-15-2022 Evaluation note Encounter Date Diagnosis Assessment Notes Jul, Anxiety (ICD-10 - F41.9) Take medication as directed. May cut in half. Follow up with primary care provider if needed or establish with [place] [email or web address] Other History general Narrative - Reported Note Date & Type Note Facility History general Narrative - Reported Type Medical History anxiety Surgical History oral surgery [email or web address] Other Summary Purpose Family History No Family History Records FoundNo Family History Records Found Advance Directives No Advanced Directives Records FoundNo Advanced Directives Records Found Additional Source Comments REASON FOR VISIT (unrecogniz ed section and content) ANXIETY INFORMATION SOURCE (unrecogn ized section and content) DATE CREATED AUTHOR 04/05/2023 [facility] DATE CREATED AUTHOR AUTHOR'S ORGANIZ ATION 11/16/2023 [facility] dical Specialists EPIC FOR RECORDS [...] BE BASED ON THE PRIMARY CLINICAL RECORDS. [facility]. provides no warranty or guarantee of the accuracy or completeness of information in this document.
[2023-11-25 19:09] VITALS: BP 104/64; PULSE 90
== END 2023-11-25 19:47 | disposition home or self-care (01) ==
LOC: FBCO 07:32 → FBC 19:05
PROVIDERS: Visit Provider Obstetrics & Gynecology
DX: O24.419 Gestational diabetes mellitus in pregnancy, unspecified control (principal)
CPT/HCPCS: 59025

== ENCOUNTER 2023-11-28 07:10 | Outpatient (OUT) | payer BC, SELFPAY ==
--- OUTSIDE RECORDS SUMMARY | 2023-11-28 07:12 | XMS_ITS | CCD ---
Author Organization [facility] Care Team Providers Care Real Estate Executive Assistant Name Role Phone Trena Wall Unavailable Alison COOK BOX FILLER-C, Emerald Franco Primary Care Unavailable Alison COOK BOX FILLER-C, Emerald A Attending Unavailable Alison COOK BOX FILLER-C, Emerald A Attending Unavailable Alison COOK BOX FILLER-C, Emerald A Primary Care Unavailable Alison COOK BOX FILLER-C, Emerald A Primary Care Unavailable Alison COOK BOX FILLER-C, Emerald A Attending Unavailable Alison COOK BOX FILLER-C, Emerald A Primary Care Unavailable Alison COOK BOX FILLER-C, Emerald A Attending Unavailable LEE, ALEX Attending Unavailable LEE, ALEX Attending Unavailable NICOLE CASTILLO Attending Unavailable ALEX HOWARD Attending Unavailable NICOLE [...] instructions at home: Managing pain ? Take pfuv-pkl-yrqnkge and prescription medicines only as told by [...] provider. Document Revised: 03/09/2021 Document Reviewed: 03/09/2021 [employer] Patient Education ? 2021 [employer] [facility] Vital Signs Date Time Vital Sign Value Performing Clinician Facility 08-15-2022 11:20-0500 Body height 156.21 cm Trena Gaitanault Other [employer] Other 08-15-2022 11:20-0500 Body mass index (BMI) [Ratio] 26.58 kg/m2 Trena Duke Other [employer] Other 08-15-2022 11:20-0500 Body temperature 98.2 [degF] Trena Duke Other [employer] Other 08-15-2022 11:20-0500 Body weight 64.86 kg Trena Duke Other [employer] Other 08-15-2022 11:20-0500 Diastolic blood pressure 73 mm[Hg] Trena Duke Other [employer] Other 08-15-2022 11:20-0500 Respiratory rate 18 /min Trena Duke Other [employer] Other 08-15-2022 11:20-0500 SaO2% (BldA) [Mass fraction] 97 % Trena Duke Other [employer] Other 08-15-2022 11:20-0500 Systolic blood pressure 119 mm[Hg] Trena Wall Other [employer] Other Encounters Encounter Date Encounter Type Care Provider Facility Start: 11-13-2023 End: 11-13-2023 ambulatory NICOLE CASTILLO Not Available Start: 10-16-2023 End: 10-16-2023 ambulatory ALEX LEE Not Available Start: 09-12-2023 End: 09-12-2023 ambulatory NICOLE CASTILLO Not Available Start: 08-21-2023 End: 08-21-2023 ambulatory ALEX LEE Not Available Start: 07-25-2023 End: 07-25-2023 ambulatory ALEX LEE Not Available Start: 07-04-2023 End: 07-04-2023 ambulatory ALEX LEE Not Available Start: 04-03-2023 End: 04-04-2023 ambulatory Emerald A Alison COOK BOX FILLER-C Facility: [facility] Start: 03-04-2023 End: 03-05-2023 ambulatory Emerald A Alison COOK BOX FILLER-C Facility: [facility] Start: 08-16-2022 End: 08-17-2022 ambulatory Emerald A Alison COOK BOX FILLER-C Facility: [facility] Start: 08-15-2022 End: 08-15-2022 ambulatory Trena Wall Other [employer] Other Start: 08-15-2022 Office outpatient ne w 20 minutes Trena Wall [facility] Start: 04-05-2022 End: 04-06-2022 ambulatory Emerald A Alison COOK BOX FILLER-C Facility: [facility] Payers Date Payer Category Payer [facility] [id number] 2000 Unknown [id number] 2.16.8 40.1.471913.3.579.2. 2000 Unknown [id number] 2.16.8 40.1.188123.3.579.2.718 2000 Unknown [id number] 2.16.8 40.1.918190.3.579.2.8 2000 Unknown [id number] 2.16.84 0.1.424130.3.579.2.718 2000 Unknown [id number] 2.16.84 0.1.536283.3.579.2.1259 2000 Unknown [id number] 2.16.84 0.1.025731.3.579.2.9 2000 Unknown [id number] 2.16.84 0.1.963126.3.579.2.9 2000 Unknown [id number] 2.16.84 0.1.117786.3.579.2.9 2000 Unknown [id number] 2.16.84 0.1.956858.3.579.2.9 2000 Unknown [id number] 2.16.84 0.1.710064.3.579.2.1259 Social History Date Type Detail Facility Unknown if ever smoked [employer] Other Sex Assigned At Sex Assigned At Bir th [employer] Other Evaluation note 08-15-2022 Note Date & Type Note Facility 08-15-2022 Evaluation note Encounter Date Diagnosis Assessment Notes Jul, Anxiety (ICD-10 - F41.9) Take medication as directed. May cut in half. Follow up with primary care provider if needed or establish with or [employer] Other History general Narrative - Reported Note Date & Type Note Facility History general Narrative - Reported Type Medical History anxiety Surgical History oral surgery [employer] Other Summary Purpose Family History No Family History Records FoundNo Family History Records Found Advance Directives No Advanced Directives Records FoundNo Advanced Directives Records Found Additional Source Comments REASON FOR VISIT (unrecogniz ed section and content) ANXIETY INFORMATION SOURCE (unrecogn ized section and content) DATE CREATED AUTHOR 04/05/2023 [facility] DATE CREATED AUTHOR AUTHOR'S ORGANIZ ATION 11/16/2023 [facility] d[facility] Specialists EPIC FOR RECORDS PERTAINING TO [...] BE BASED ON THE PRIMARY CLINICAL RECORDS. [facility]. provides no warranty or guarantee of the accuracy or completeness of information in this document.
--- NOTE | 2023-11-28 19:05 | US_ITS ---
[address] [address] Patient Name: SIDDHARTH FRANK MRN: [id number] date: 2000 Sex: F Assigned Patient Location: [facility] Current Patient Location: Accession/Order Number: [id number] Exam Date: 11/28/2023 19:09 Report Date: 11/29/2023 07:15 At the request of: ALEX HOWARD Procedure: US OB BPP w non-stress EXAMINATION: US OB BPP w non-stress HISTORY: GESTATIONAL DIABETES MELLITUS O24.419 COMPARISON: Ultrasound OB biophysical 11/21/2023 TECHNIQUE: Ultrasound biophysical profile was performed in the radiology department. BREATHING MOVEMENTS: 2.0 GROSS BODY MOVEMENTS: 2.0 TONE: 2.0 QUALITATIVE AMNIOTIC FLUID VOLUME: 2.0 PRESENTATION: BREECH HEART RATE: 145.2 bpm bpm. AMNIOTIC FLUID VOLUME: 12.7 cm GESTATIONAL AGE: 31 weeks 1 days CONCLUSION: Total biophysical profile score 8.0. Electronically authenticated by: STAN HANDLEY Date: 11/29/2023 07:15
[2023-11-28 19:39] VITALS: BP 110/62; PULSE 76; TEMP 36.9
== END 2023-11-28 20:16 | disposition home or self-care (01) ==
LOC: US 07:10 → FBC 19:05
PROVIDERS: Visit Provider Obstetrics & Gynecology
DX: O24.419 Gestational diabetes mellitus in pregnancy, unspecified control (principal); Z3A.31 31 weeks gestation of pregnancy
CPT/HCPCS: 76818

== ENCOUNTER 2023-12-02 07:15 | Outpatient (OUT) | payer BC, SELFPAY ==
--- OUTSIDE RECORDS SUMMARY | 2023-12-02 07:18 | XMS_ITS | CCD ---
Author Organization [facility] Care Team Providers Care Sample Dye Mixer Name Role Phone Trena Wall Unavailable Alison DANCE CRITIC-C, Emerald Franco Primary Care Unavailable Alison DANCE CRITIC-C, Emerald A Attending Unavailable Alison DANCE CRITIC-C, Emerald A Attending Unavailable Alison DANCE CRITIC-C, Emerald A Primary Care Unavailable Alison DANCE CRITIC-C, Emerald A Primary Care Unavailable Alison DANCE CRITIC-C, Emerald A Attending Unavailable Alison DANCE CRITIC-C, Emerald A Primary Care Unavailable Alison DANCE CRITIC-C, Emerald A Attending Unavailable LEE, ALEX Attending Unavailable LEE, ALEX Attending Unavailable NICOLE CASTILLO Attending Unavailable LEE, ALEX Attending Unavailable JONATHAN, NICOLE Attending Unavailable LEE, ALEX Attending Unavailable Medications Current Medications Medication Drug [...] instructions at home: Managing pain ? Take utdw-xws-hqnilop and prescription medicines only as told by [...] provider. Document Revised: 03/09/2021 Document Reviewed: 03/09/2021 [employer] Patient Education ? 2021 [employer]. [facility] Vital Signs Date Time Vital Sign Value Performing Clinician Facility 08-15-2022 11:20-0500 Body height 156.21 cm Trena Gaitanault Other [facility] Other 08-15-2022 11:20-0500 Body mass index (BMI) [Ratio] 26.58 kg/m2 Trena Duke Other [facility] Other 08-15-2022 11:20-0500 Body temperature 98.2 [degF] Trena Duke Other [facility] Other 08-15-2022 11:20-0500 Body weight 64.86 kg Trena Duke Other [facility] Other 08-15-2022 11:20-0500 Diastolic blood pressure 73 mm[Hg] Trena Duke Other [facility] Other 08-15-2022 11:20-0500 Respiratory rate 18 /min Trena Duke Other [facility] Other 08-15-2022 11:20-0500 SaO2% (BldA) [Mass fraction] 97 % Trena Duke Other [facility] Other 08-15-2022 11:20-0500 Systolic blood pressure 119 mm[Hg] Trena Gaitanault Other [facility] Other Encounters Encounter Date Encounter Type Care Provider Facility Start: 11-27-2023 End: 11-27-2023 ambulatory ALEX LEE Not Available Start: 11-13-2023 End: 11-13-2023 ambulatory NICOLE JONATHAN Not Available Start: 10-16-2023 End: 10-16-2023 ambulatory ALEX LEE Not Available Start: 09-12-2023 End: 09-12-2023 ambulatory NICOLE JONATHAN Not Available Start: 08-21-2023 End: 08-21-2023 ambulatory ALEX LEE Not Available Start: 07-25-2023 End: 07-25-2023 ambulatory ALEX LEE Not Available Start: 07-04-2023 End: 07-04-2023 ambulatory ALEX LEE Not Available Start: 04-03-2023 End: 04-04-2023 ambulatory Emerald A Alison DANCE CRITIC-C Facility: [facility] Start: 03-04-2023 End: 03-05-2023 ambulatory Emerald A Alison DANCE CRITIC-C Facility: [facility] Start: 08-16-2022 End: 08-17-2022 ambulatory Emerald A Alison DANCE CRITIC-C Facility: [facility] Start: 08-15-2022 End: 08-15-2022 ambulatory Trena Wall Other [facility] Other Start: 08-15-2022 Office outpatient ne w 20 minutes Trena Duke [facility] Start: 04-05-2022 End: 04-06-2022 ambulatory Emerald A Alison DANCE CRITIC-C Facility: [facility] Payers Date Payer Category Payer [facility] [id number] 2000 Unknown [id number] 2.16.8 [id number] 2000 Unknown [id number] 2.16.8 40.1.872645.3.579.2.718 2000 Unknown [id number] 2.16.8 40.1.161340.3.579.2.718 2000 Unknown [id number] 2.16.84 0.1.147499.3.579.2.718 2000 Unknown [id number] 2.16.84 0.1.495368.3.579.2.9 2000 Unknown [id number] 2.16.84 0.1.092160.3.579.2.1259 2000 Unknown [id number] 2.16.84 0.1.004435.3.579.2.9 2000 Unknown [id number] 2.16.84 0.1.648480.3.579.2.9 2000 Unknown [id number] 2.16.84 0.1.791668.3.579.2.9 2000 Unknown [id number] 2.16.84 0.1.115012.3.579.2.1259 2000 Unknown [id number] 2.16.84 0.1.736741.3.579.2.1259 Social History Date Type Detail Facility Unknown if ever smoked [facility] Other Sex Assigned At Sex Assigned At Bir th [facility] Other Evaluation note 08-15-2022 Note Date & Type Note Facility 08-15-2022 Evaluation note Encounter Date Diagnosis Assessment Notes Jul, Anxiety (ICD-10 - F41.9) Take medication as directed. May cut in half. Follow up with primary care provider if needed or establish with la [facility] Other History general Narrative - Reported Note Date & Type Note Facility History general Narrative - Reported Type Medical History anxiety Surgical History oral surgery [facility] Other Summary Purpose Family History No Family History Records FoundNo Family History Records Found Advance Directives No Advanced Directives Records FoundNo Advanced Directives Records Found Additional Source Comments REASON FOR VISIT (unrecogniz ed section and content) ANXIETY INFORMATION SOURCE (unrecogn ized section and content) DATE CREATED AUTHOR 04/05/2023 [facility] DATE CREATED AUTHOR AUTHOR'Kailee SAWYER 11/29/2023 [facility] dical Specialists [facility] FOR RECORDS PERTAINING TO PATIENTS [...] BE BASED ON THE PRIMARY CLINICAL RECORDS. [employer] provides no warranty or guarantee of the accuracy or completeness of information in this document.
[2023-12-02 19:02] VITALS: BP 111/65; PULSE 77
== END 2023-12-02 19:30 | disposition home or self-care (01) ==
LOC: FBCO 07:15 → FBC 18:57
PROVIDERS: Visit Provider Obstetrics & Gynecology
DX: O24.419 Gestational diabetes mellitus in pregnancy, unspecified control (principal)
CPT/HCPCS: 59025

== ENCOUNTER 2023-12-05 07:02 | Outpatient (OUT) | payer BC, SELFPAY ==
--- OUTSIDE RECORDS SUMMARY | 2023-12-05 07:04 | XMS_ITS | CCD ---
Author Organization [facility] Care Team Providers Care Vector Control Assistant Name Role Phone Trena Wall Unavailable Alison INSTRUCTOR ADJUNCT PHARMACY TECHNICIAN-C, Emerald Franco Primary Care Unavailable Alison INSTRUCTOR ADJUNCT PHARMACY TECHNICIAN-C, Emerald A Attending Unavailable Alison INSTRUCTOR ADJUNCT PHARMACY TECHNICIAN-C, Emerald A Attending Unavailable Alison INSTRUCTOR ADJUNCT PHARMACY TECHNICIAN-C, Emerald A Primary Care Unavailable Alison INSTRUCTOR ADJUNCT PHARMACY TECHNICIAN-C, Emerald A Primary Care Unavailable Alison INSTRUCTOR ADJUNCT PHARMACY TECHNICIAN-C, Emerald A Attending Unavailable Alison INSTRUCTOR ADJUNCT PHARMACY TECHNICIAN-C, Emerald A Primary Care Unavailable Alison INSTRUCTOR ADJUNCT PHARMACY TECHNICIAN-C, Emerald A Attending Unavailable LEE, ALEX Attending Unavailable LEE, ALEX Attending Unavailable NICOLE CASTILLO Attending Unavailable LEE, ALEX Attending Unavailable JONATHANNICOLE BORRERO Attending Unavailable LEE, ALEX Attending Unavailable Medications [...] instructions at home: Managing pain ? Take cmnm-gcv-uzcakjg and prescription medicines only as told by [...] provider. Document Revised: 03/09/2021 Document Reviewed: 03/09/2021 [employer] Patient Education ? 2021 [employer]. [facility] Vital Signs Date Time Vital Sign Value Performing Clinician Facility 08-15-2022 11:20-0500 Body height 156.21 cm Trena Gaitanault Other [facility] Other 08-15-2022 11:20-0500 Body mass index (BMI) [Ratio] 26.58 kg/m2 Trena Duke Other [facility] Other 08-15-2022 11:20-0500 Body temperature 98.2 [degF] Trena Duke Other [facility] Other 08-15-2022 11:20-0500 Body weight 64.86 kg Trena Duke Other [facility] Other 08-15-2022 11:20-0500 Diastolic blood pressure 73 mm[Hg] Trena Duke Other [facility] Other 08-15-2022 11:20-0500 Respiratory rate 18 /min Trena Duke Other [facility] Other 08-15-2022 11:20-0500 SaO2% (BldA) [Mass fraction] 97 % Trena Duke Other [facility] Other 08-15-2022 11:20-0500 Systolic blood pressure 119 mm[Hg] Trena Gaitanault Other [facility] Other Encounters Encounter Date Encounter Type Care [...] 04-03-2023 End: 04-04-2023 ambulatory Emerald A Alison INSTRUCTOR ADJUNCT PHARMACY TECHNICIAN-C Facility: [facility] Start: 03-04-2023 End: 03-05-2023 ambulatory Emerald A Alison INSTRUCTOR ADJUNCT PHARMACY TECHNICIAN-C Facility: [facility] Start: 08-16-2022 End: 08-17-2022 ambulatory Emerald A Alison INSTRUCTOR ADJUNCT PHARMACY TECHNICIAN-C Facility: [facility] Start: 08-15-2022 End: 08-15-2022 ambulatory Trena Wall Other [facility] Other Start: 08-15-2022 Office outpatient ne w 20 minutes Trena Duke [facility] Start: 04-05-2022 End: 04-06-2022 ambulatory Emerald A Alison INSTRUCTOR ADJUNCT PHARMACY TECHNICIAN-C Facility: [facility] Payers Date Payer Category Payer [facility] [id number] 2000 Unknown [id number] 2.16.8 40.1.653823.3.579.2.718 2000 Unknown [id number] 2.16.8 40.1.627077.3.579.2.718 2000 Unknown [id number] 2.16.8 40.1.975168.3.579.2.718 2000 Unknown [id number] 2.16.84 0.1.613300.3.579.2.718 2000 Unknown [id number] 2.16.84 0.1.626527.3.579.2.9 2000 Unknown [id number] 2.16.84 0.1.241693.3.579.2.1259 2000 Unknown [id number] 2.16.84 0.1.922215.3.579.2.9 2000 Unknown [id number] 2.16.84 0.1.727179.3.579.2.9 2000 Unknown [id number] 2.16.84 0.1.508553.3.579.2.9 2000 Unknown [id number] 2.16.84 0.1.559324.3.579.2.1259 2000 Unknown [id number] 2.16.84 0.1.867625.3.579.2.1259 Social History Date Type Detail Facility Unknown if ever smoked [facility] Other Sex Assigned At Sex Assigned At Bir th [facility] Other Evaluation note 08-15-2022 Note Date & Type Note Facility 08-15-2022 Evaluation note Encounter Date Diagnosis Assessment Notes Jul, Anxiety (ICD-10 - F41.9) Take medication as directed. May cut in half. Follow up with primary care provider if needed or establish with ca [facility] Other History general Narrative - Reported Note Date & Type Note Facility History general Narrative - Reported Type Medical History anxiety Surgical History oral surgery [facility] Other Summary Purpose Family History No Family History Records FoundNo Family History Records Found Advance Directives No Advanced Directives Records FoundNo Advanced Directives Records Found Additional Source Comments REASON FOR VISIT (unrecogniz ed section and content) ANXIETY INFORMATION SOURCE (unrecogn ized section and content) DATE CREATED AUTHOR 04/05/[address] [facility] DATE CREATED AUTHOR AUTHOR'Kailee SAWYER 11/29/2023 [facility] dical Specialists [facility] FOR RECORDS PERTAINING TO PATIENTS WHO [...] BE BASED ON THE PRIMARY CLINICAL RECORDS. [employer] provides no warranty or guarantee of the accuracy or completeness of information in this document.
--- NOTE | 2023-12-05 19:02 | US_ITS ---
[address] [address] Patient Name: SIDDHARTH FRANK MRN: [id number] date: 2000 Sex: F Assigned Patient Location: [facility] Current Patient Location: Accession/Order Number: [id number] Exam Date: 12/05/2023 19:05 Report Date: 12/06/2023 07:12 At the request of: ALEX HOWARD Procedure: US OB BPP w non-stress EXAMINATION: US OB BPP w non-stress HISTORY: GESTATIONAL DIABETES MELLITUS O24.419 COMPARISON: No relevant comparison available. TECHNIQUE: Ultrasound biophysical profile was performed in the radiology department. FINDINGS: BREATHING MOVEMENTS: 2.0 GROSS BODY MOVEMENTS: 2.0 TONE: 2.0 QUALITATIVE AMNIOTIC FLUID VOLUME: 2.0 PRESENTATION: BREECH HEART RATE: 148.4 bpm H.B./min AMNIOTIC FLUID VOLUME: 15.1 cm cm GESTATIONAL AGE: 32 weeks 1 days CONCLUSION: Total biophysical profile score: 8.0 Electronically authenticated by: NEW DIAZ Date: 12/06/2023 07:12
[2023-12-05 19:27] VITALS: BP 94/54; PULSE 74
== END 2023-12-05 20:00 | disposition home or self-care (01) ==
LOC: US 07:02 → FBC 18:56
PROVIDERS: Visit Provider Obstetrics & Gynecology
DX: O24.419 Gestational diabetes mellitus in pregnancy, unspecified control (principal); Z3A.32 32 weeks gestation of pregnancy
CPT/HCPCS: 76818

== ENCOUNTER 2023-12-09 07:00 | Outpatient (OUT) | payer BC, SELFPAY ==
--- OUTSIDE RECORDS SUMMARY | 2023-12-09 07:04 | XMS_ITS | CCD ---
Author Organization [facility] Care Team Providers Care Review Manager Name Role Phone Trena Wall Unavailable Alison CARPENTRY INSTRUCTOR-C, Emerald Franco Primary Care Unavailable Alison CARPENTRY INSTRUCTOR-C, Emerald A Attending Unavailable Alison CARPENTRY INSTRUCTOR-C, Emerald A Attending Unavailable Alison CARPENTRY INSTRUCTOR-C, Emerald A Primary Care Unavailable Alison CARPENTRY INSTRUCTOR-C, Emerald A Primary Care Unavailable Alison CARPENTRY INSTRUCTOR-C, Emerald A Attending Unavailable Alison CARPENTRY INSTRUCTOR-C, Emerald A Primary Care Unavailable Alison CARPENTRY INSTRUCTOR-C, Emerald A Attending Unavailable LEE, ALEX Attending [...] instructions at home: Managing pain ? Take tqfl-bqv-txrfkem and prescription medicines only as told by [...] provider. Document Revised: 03/09/2021 Document Reviewed: 03/09/2021 [employer] Patient Education ? 2021 [employer]. [facility] Vital Signs Date Time Vital Sign Value Performing Clinician Facility 08-15-2022 11:20-0500 Body height 156.21 cm Trena Gaitanault Other [facility] Other 08-15-2022 11:20-0500 Body mass index (BMI) [Ratio] 26.58 kg/m2 Trena Duke Other [facility] Other 08-15-2022 11:20-0500 Body temperature 98.2 [degF] Trena Duke Other [facility] Other 08-15-2022 11:20-0500 Body weight 64.86 kg Trena Duke Other [facility] Other 08-15-2022 11:20-0500 Diastolic blood pressure 73 mm[Hg] Trena Duke Other [facility] Other 08-15-2022 11:20-0500 Respiratory rate 18 /min Trena Duke Other [facility] Other 08-15-2022 11:20-0500 SaO2% (BldA) [Mass fraction] 97 % Trena Duke Other [facility] Other 08-15-2022 11:20-0500 Systolic blood pressure 119 mm[Hg] Trena Gaitanault Other [facility] Other Encounters Encounter Date Encounter Type [...] 04-03-2023 End: 04-04-2023 ambulatory Emerald A Alison CARPENTRY INSTRUCTOR-C Facility: [facility] Start: 03-04-2023 End: 03-05-2023 ambulatory Emerald A Alison CARPENTRY INSTRUCTOR-C Facility: [facility] Start: 08-16-2022 End: 08-17-2022 ambulatory Emerald A Alison CARPENTRY INSTRUCTOR-C Facility: [facility] Start: 08-15-2022 End: 08-15-2022 ambulatory Trena Wall Other [facility] Other Start: 08-15-2022 Office outpatient ne w 20 minutes Trena Duke [facility] Start: 04-05-2022 End: 04-06-2022 ambulatory Emerald A Alison CARPENTRY INSTRUCTOR-C Facility: [facility] Payers Date Payer Category Payer [facility] [id number] 2000 Unknown [id number] 2.16.8 40.1.099034.3.579.2.718 2000 Unknown [id number] 2.16.8 40.1.760422.3.579.2.718 2000 Unknown [id number] 2.16.8 40.1.260579.3.579.2.718 2000 Unknown [id number] 2.16.84 0.1.370134.3.579.2.718 2000 Unknown [id number] 2.16.84 0.1.138262.3.579.2.9 2000 Unknown [id number] 2.16.84 0.1.521655.3.579.2.1259 2000 Unknown [id number] 2.16.84 0.1.822583.3.579.2.9 2000 Unknown [id number] 2.16.84 0.1.184263.3.579.2.9 2000 Unknown [id number] 2.16.84 0.1.320086.3.579.2.9 2000 Unknown [id number] 2.16.84 0.1.385368.3.579.2.1259 2000 Unknown [id number] 2.16.84 0.1.083674.3.579.2.1259 Social History Date Type Detail Facility Unknown if ever smoked [facility] Other Sex Assigned At Sex Assigned At Bir th [facility] Other Evaluation note 08-15-2022 Note Date & Type Note Facility 08-15-2022 Evaluation note Encounter Date Diagnosis Assessment Notes Jul, Anxiety (ICD-10 - F41.9) Take medication as directed. May cut in half. Follow up with primary care provider if needed or establish with fl [facility] Other History general Narrative - Reported Note Date & Type Note Facility History general Narrative - Reported Type Medical History anxiety Surgical History oral surgery [facility] Other Summary Purpose Family History No Family History Records FoundNo Family History Records Found Advance Directives No Advanced Directives Records FoundNo Advanced Directives Records Found Additional Source Comments REASON FOR VISIT (unrecogniz ed section and content) ANXIETY INFORMATION SOURCE (unrecogn ized section and content) DATE CREATED AUTHOR 04/05/2023 [facility] DATE CREATED AUTHOR AUTHOR'Kailee SAWYER 11/29/2023 [facility] dical Specialists [facility] FOR RECORDS PERTAINING TO PATIENTS [...] BE BASED ON THE PRIMARY CLINICAL RECORDS. [employer] provides no warranty or guarantee of the accuracy or completeness of information in this document.
[2023-12-09 19:10] VITALS: BP 110/67; PULSE 67; TEMP 36.8
== END 2023-12-09 19:50 | disposition home or self-care (01) ==
LOC: FBCO 07:00 → FBC 18:54
PROVIDERS: Visit Provider Obstetrics & Gynecology
DX: O24.419 Gestational diabetes mellitus in pregnancy, unspecified control (principal)
CPT/HCPCS: 59025

== ENCOUNTER 2023-12-12 07:13 | Outpatient (OUT) | payer BC, SELFPAY ==
--- OUTSIDE RECORDS SUMMARY | 2023-12-12 07:17 | XMS_ITS | CCD ---
Author Organization [facility] Care Team Providers Care Loss Prevention Detective Name Role Phone Trena Wall Unavailable Alison FIREMAN HELPER-C, Emerald Franco Primary Care Unavailable Alison FIREMAN HELPER-C, Emerald A Attending Unavailable Alison FIREMAN HELPER-C, Emerald A Attending Unavailable Alison FIREMAN HELPER-C, Emerald A Primary Care Unavailable Alison FIREMAN HELPER-C, Emerald A Primary Care Unavailable Alison FIREMAN HELPER-C, Emerald A Attending Unavailable Alison FIREMAN HELPER-C, Emerald A Primary Care Unavailable Alison FIREMAN HELPER-C, Emerald A Attending Unavailable LEE, ALEX Attending [...] instructions at home: Managing pain ? Take eudp-fjt-mhkakca and prescription medicines only as told by [...] provider. Document Revised: 03/09/2021 Document Reviewed: 03/09/2021 [employer] Patient Education ? 2021 [employer]. [facility] Vital Signs Date Time Vital Sign Value Performing Clinician Facility 08-15-2022 11:20-0500 Body height 156.21 cm Trena Gaitanault Other [facility] Other 08-15-2022 11:20-0500 Body mass index (BMI) [Ratio] 26.58 kg/m2 Trena Duke Other [facility] Other 08-15-2022 11:20-0500 Body temperature 98.2 [degF] Trena Duke Other [facility] Other 08-15-2022 11:20-0500 Body weight 64.86 kg Trena Duke Other [facility] Other 08-15-2022 11:20-0500 Diastolic blood pressure 73 mm[Hg] Trena Duke Other [facility] Other 08-15-2022 11:20-0500 Respiratory rate 18 /min Trena D[facility] Other [facility] Other 08-15-2022 11:20-0500 SaO2% (BldA) [Mass fraction] 97 % Trena Duke Other [facility] Other 08-15-2022 11:20-0500 Systolic blood pressure 119 mm[Hg] Trena Gaitanault Other [facility] Other Encounters Encounter Date Encounter Type Care [...] 04-03-2023 End: 04-04-2023 ambulatory Emerald A Alison FIREMAN HELPER-C Facility: [facility] Start: 03-04-2023 End: 03-05-2023 ambulatory Emerald A Alison FIREMAN HELPER-C Facility: [facility] Start: 08-16-2022 End: 08-17-2022 ambulatory Emerald A Alison FIREMAN HELPER-C Facility: [facility] Start: 08-15-2022 End: 08-15-2022 ambulatory Trena Wall Other [facility] Other Start: 08-15-2022 Office outpatient ne w 20 minutes Trena Duke [facility] Start: 04-05-2022 End: 04-06-2022 ambulatory Emerald A Alison FIREMAN HELPER-C Facility: [facility] Payers Date Payer Category Payer [facility] [id number] 2000 Unknown [id number] 2.16.8 40.1.456638.3.579.2.718 2000 Unknown [id number] 2.16.8 40.1.251537.3.579.2.718 2000 Unknown [id number] 2.16.8 40.1.275175.3.579.2.718 2000 Unknown [id number] 2.16.84 0.1.483684.3.579.2.718 2000 Unknown [id number] 2.16.84 0.1.899161.3.579.2.9 2000 Unknown [id number] 2.16.84 0.1.787253.3.579.2.1259 2000 Unknown [id number] 2.16.84 0.1.932374.3.579.2.9 2000 Unknown [id number] 2.16.84 0.1.347223.3.579.2.9 2000 Unknown [id number] 2.16.84 0.1.637950.3.579.2.9 2000 Unknown [id number] 2.16.84 0.1.383554.3.579.2.1259 2000 Unknown [id number] 2.16.84 0.1.198158.3.579.2.1259 Social History Date Type Detail Facility Unknown if ever smoked [facility] Other Sex Assigned At Sex Assigned At Bir th [facility] Other Evaluation note 08-15-2022 Note Date & Type Note Facility 08-15-2022 Evaluation note Encounter Date Diagnosis Assessment Notes Jul, Anxiety (ICD-10 - F41.9) Take medication as directed. May cut in half. Follow up with primary care provider if needed or establish with [place] [facility]. Other History general Narrative - Reported Note Date & Type Note Facility History general Narrative - Reported Type Medical History anxiety Surgical History oral surgery [facility] Other Summary Purpose Family History No Family History Records FoundNo Family History Records Found Advance Directives No Advanced Directives Records FoundNo Advanced Directives Records Found Additional Source Comments REASON FOR VISIT (unrecogniz ed section and content) ANXIETY INFORMATION SOURCE (unrecogn ized section and content) DATE CREATED AUTHOR 04/05/2023 [facility] DATE CREATED AUTHOR AUTHOR'Kailee SAWYER 11/29/2023 [facility] dical Specialists [facility] FOR RECORDS PERTAINING TO PATIENTS WHO [...] BE BASED ON THE PRIMARY CLINICAL RECORDS. [employer] provides no warranty or guarantee of the accuracy or completeness of information in this document.
[2023-12-12 19:10] VITALS: BP 126/70; PULSE 86
--- NOTE | 2023-12-12 19:10 | US_ITS ---
[address] [address] Patient Name: SIDDHARTH FRANK MRN: [id number] date: 2000 Sex: F Assigned Patient Location: [facility] Current Patient Location: Accession/Order Number: [id number] Exam Date: 12/12/2023 19:14 Report Date: 12/13/2023 04:11 At the request of: ALEX HOWARD Procedure: US OB BPP w non-stress EXAMINATION: US OB BPP w non-stress HISTORY:GESTATIONAL DIABETES MELLITUS O24.419 COMPARISON: Ultrasound OB biophysical 12/05/2023 TECHNIQUE: Ultrasound biophysical profile was performed in the radiology department. BREATHING MOVEMENTS: 2 GROSS BODY MOVEMENTS: 2 TONE: 2 QUALITATIVE AMNIOTIC FLUID VOLUME: 2 PRESENTATION: BREECH HEART RATE: 139.90 bpm AMNIOTIC FLUID VOLUME: 13.34 cm GESTATIONAL AGE: 33 weeks 6 days US/US OB BPP w non-stress IMPRESSION: Total biophysical profile score: 8 Electronically authenticated by: STAN HANDLEY Date: 12/13/2023 04:11
[2023-12-12 19:50] VITALS: BP 128/60; PULSE 70
== END 2023-12-12 20:16 | disposition home or self-care (01) ==
LOC: US 07:16 → FBC 19:04
PROVIDERS: Visit Provider Obstetrics & Gynecology
DX: O24.419 Gestational diabetes mellitus in pregnancy, unspecified control (principal); Z3A.33 33 weeks gestation of pregnancy
CPT/HCPCS: 76818

== ENCOUNTER 2023-12-16 07:10 | Outpatient (OUT) | payer BC, SELFPAY ==
--- OUTSIDE RECORDS SUMMARY | 2023-12-16 07:22 | XMS_ITS ---
Patient Summarization (C-CDA 2.1 CCD) Created on: December 16, 2023 SIDDHARTH FRANK : 2000 Sex: Female Author Organization Sample organization Care Team Providers Care Ride Attendant Name Role Phone Trena Wall Unavailable Alison DURAL MECHANIC-C, Emerald A Primary Care Unavailable Alison DURAL MECHANIC-C, Emerald A Attending Unavailable Alison DURAL MECHANIC-C, Emerald A Attending Unavailable Alison DURAL MECHANIC-C, Emerald A Primary Care Unavailable Alison DURAL MECHANIC-C, Emerald A Primary Care Unavailable Alison DURAL MECHANIC-C, Emerald A Attending Unavailable Alison DURAL MECHANIC-C, Emerald A Primary Care Unavailable Alison DURAL MECHANIC-C, Emerald A Attending Unavailable LEE, ALEX Attending Unavailable LEE, ALEX Attending Unavailable JONATHAN, NICOLE Attending Unavailable LEE, ALEX Attending Unavailable JONATHAN, NICOLE Attending Unavailable LEE, ALEX Attending Unavailable LEE, ALEX Attending Unavailable Encounters Encounter Date Encounter Type Care Provider Facility Start: 12-11-2023 End: 12-11-2023 ambulatory ALEX LEE Not Available Start: 11-27-2023 End: 11-27-2023 ambulatory ALEX LEE [...] 04-03-2023 End: 04-04-2023 ambulatory Emerald A Alison DURAL MECHANIC-C Facility: [facility] Start: 03-04-2023 End: 03-05-2023 ambulatory Emerald A Alison DURAL MECHANIC-C [facility] Start: 08-16-2022 End: 08-17-2022 ambulatory Emerald A Alison DURAL MECHANIC-C Facility: [facility] Start: 08-15-2022 End: 08-15-2022 ambulatory Trena Duke Other [facility] Other Start: 08-15-2022 Office outpatient ne w 20 minutes Trena Duke [facility] Start: 04-05-2022 End: 04-06-2022 ambulatory Emerald A Alison DURAL MECHANIC-C Facility: [facility] Medications Current Medications Medication Drug [...] Nov, Not-Taking Payers Date Payer Category Payer [facility] [id number] 2000 Unknown [id number] 2.16.8 40.1.808192.3.579.2.718 2000 Unknown [id number] 2.16.8 40.1.279140.3.579.2.718 2000 Unknown [id number] 2.16.8 40.1.851492.3.579.2.718 2000 Unknown [id number] 2.16.84 0.1.056255.3.579.2.8 2000 Unknown [id number] 2.16.84 0.1.208042.3.579.2.1258 2000 Unknown [id number] 2.16.84 0.1.246056.3.579.2.1258 2000 Unknown [id number] 2.16.84 0.1.323041.3.579.2.1258 2000 Unknown [id number] 2.16.84 0.1.398765.3.579.2.1258 2000 Unknown [id number] 2.16.84 0.1.350757.3.579.2.1258 2000 Unknown [id number] 2.16.84 0.1.973147.3.579.2.1258 2000 Unknown [id number] 2.16.84 0.1.572520.3.579.2.1258 2000 Unknown [id number] 2.16.84 0.1.992890.3.579.2.1259 Problems Problem Classification Problem Date Documented Da [...] instructions at home: Managing pain ? Take ccxg-fgb-dsmtzhp and prescription medicines only as told by [...] provider. Document Revised: 03/09/2021 Document Reviewed: 03/09/2021 [employer] Patient Education ? 2021 [employer] [facility] Social History Date Type Detail Facility Unknown if ever smoked [employer] Other Sex Assigned At Sex Assigned At Bir th [employer] Other Vital Signs Date Time Vital Sign Value Performing Clinician Facility 08-15-2022 11:20-0500 Body height 156.21 cm Trena Wall Other [employer] [facility] Other 08-15-2022 11:20-0500 Body mass index (BMI) [Ratio] 26.58 kg/m2 Trena Wall Other [facility] [facility] Other 08-15-2022 11:20-0500 Body temperature 98.2 [degF] Trena Wall Other [facility] Other 08-15-2022 11:20-0500 Body weight 64.86 kg Trena Wall Other [facility] [facility] Other 08-15-2022 11:20-0500 Diastolic blood pressure 73 mm[Hg] Trena Wall Other [facility] [facility] Other 08-15-2022 11:20-0500 Respiratory rate 18 /min Trena Wall Other [facility] Other 08-15-2022 11:20-0500 SaO2% (BldA) [Mass fraction] 97 % Trena Wall Other [facility] [facility] Other 08-15-2022 11:20-0500 Systolic blood pressure 119 mm[Hg] Trena Wall Other [facility] Other Evaluation note 08-15-2022 Note Date & Type Note Facility 08-15-2022 Evaluation note Encounter Date Diagnosis Assessment Notes Jul, Anxiety (ICD-10 - F41.9) Take medication as directed. May cut in half. Follow up with primary care provider if needed or establish with [place] [facility] Other History general Narrative - Reported Note Date & Type Note Facility History general Narrative - Reported Type Medical History anxiety Surgical History oral surgery [employer] Other Summary Purpose Family History No Family History Records FoundNo Family History Records Found Advance Directives No Advanced Directives Records FoundNo Advanced Directives Records Found Additional Source Comments REASON FOR VISIT (unrecogniz ed section and content) ANXIETY INFORMATION SOURCE (unrecogn ized section and content) DATE CREATED AUTHOR 04/05/2023 [facility] DATE CREATED AUTHOR AUTHOR'S ORGANIZ ATION 12/13/2023 [facility] dicms Specialists [facility] FOR RECORDS PERTAINING TO PATIENTS [...] BE BASED ON THE PRIMARY CLINICAL RECORDS. [facility] [employer] [facility]. provides no warranty or guarantee of the accuracy or completeness of information in this document.
[2023-12-16 19:07] VITALS: BP 121/68; PULSE 71
== END 2023-12-16 19:37 | disposition home or self-care (01) ==
LOC: FBCO 07:20 → FBC 18:58
PROVIDERS: Visit Provider Obstetrics & Gynecology
DX: O24.419 Gestational diabetes mellitus in pregnancy, unspecified control (principal)
CPT/HCPCS: 59025

== ENCOUNTER 2023-12-19 07:08 | Outpatient (OUT) | payer BC, SELFPAY ==
--- OUTSIDE RECORDS SUMMARY | 2023-12-19 07:10 | XMS_ITS | CCD ---
Author Organization [facility] Care Team Providers Care Director Trade Name Role Phone Trena Wall Unavailable Alison QUALITY CONTROLLER-C, Emerald Franco Primary Care Unavailable Alison QUALITY CONTROLLER-C, Emerald A Attending Unavailable Alison QUALITY CONTROLLER-C, Emerald A Attending Unavailable Alison QUALITY CONTROLLER-C, Emerald A Primary Care Unavailable Alison QUALITY CONTROLLER-C, Emerald A Primary Care Unavailable Alison QUALITY CONTROLLER-C, Emerald A Attending Unavailable Alison QUALITY CONTROLLER-C, Emerald A Primary Care Unavailable Alison QUALITY CONTROLLER-C, Emerald A Attending Unavailable LEE, ALEX Attending Unavailable LEE, ALEX Attending Unavailable NICOLE CASTILLO Attending Unavailable LEE, ALEX Attending Unavailable JONATHAN, NICOLE Attending Unavailable LEE, ALEX Attending Unavailable LEE, ALEX Attending Unavailable Medications [...] instructions at home: Managing pain ? Take bfuu-qtu-mubtsyn and prescription medicines only as told by [...] provider. Document Revised: 03/09/2021 Document Reviewed: 03/09/2021 [employer] Patient Education ? 2021 [employer]. [facility] Vital Signs Date Time Vital Sign Value Performing Clinician Facility 08-15-2022 11:20-0500 Body height 156.21 cm Trena Gaitanault Other [facility] Other 08-15-2022 11:20-0500 Body mass index (BMI) [Ratio] 26.58 kg/m2 Trena Gaitanault Other [facility] Other 08-15-2022 11:20-0500 Body temperature 98.2 [degF] Trena Gaitanault Other [facility] Other 08-15-2022 11:20-0500 Body weight 64.86 kg Trena Gaitanault Other [facility] Other 08-15-2022 11:20-0500 Diastolic blood pressure 73 mm[Hg] Trena Duke Other [facility] Other 08-15-2022 11:20-0500 Respiratory rate 18 /min Trena Gaitanault Other [facility] Other 08-15-2022 11:20-0500 SaO2% (BldA) [Mass fraction] 97 % Trena Gaitanault Other [facility] Other 08-15-2022 11:20-0500 Systolic blood pressure 119 mm[Hg] Trena Gaitanault Other [facility] Other Encounters Encounter Date Encounter Type Care [...] 04-03-2023 End: 04-04-2023 ambulatory Emerald A Alison QUALITY CONTROLLER-C Facility[facility] Start: 03-04-2023 End: 03-05-2023 ambulatory Emerald A Alison QUALITY CONTROLLER-C Facility: [facility] Start: 08-16-2022 End: 08-17-2022 ambulatory Emerald A Alison QUALITY CONTROLLER-C Facility: [facility] Start: 08-15-2022 End: 08-15-2022 ambulatory Trena Gaitanault Other [facility] Other Start: 08-15-2022 Office outpatient ne w 20 minutes Trena Duke [facility] Start: 04-05-2022 End: 04-06-2022 ambulatory Emearld A Alison QUALITY CONTROLLER-C Facility: [facility] Payers Date Payer Category Payer [facility] [id number] 2000 Unknown [id number] 2.16.8 40.1.752755.3.579.2.718 2000 Unknown [id number] 2.16.8 40.1.202175.3.579.2.718 2000 Unknown [id number] 2.16.8 40.1.402597.3.579.2.718 2000 Unknown [id number] 2.16.84 0.1.896733.3.579.2.718 2000 Unknown [id number] 2.16.84 0.1.013174.3.579.2.1259 2000 Unknown [id number] 2.16.84 0.1.550612.3.579.2.9 2000 Unknown [id number] 2.16.84 0.1.492933.3.579.2.1259 2000 Unknown [id number] 2.16.84 0.1.403406.3.579.2.9 2000 Unknown [id number] 2.16.84 0.1.975764.3.579.2.9 2000 Unknown [id number] 2.16.84 0.1.058692.3.579.2.9 2000 Unknown [id number] 2.16.84 0.1.677716.3.579.2.9 2000 Unknown [id number] 2.16.84 0.1.832725.3.579.2.1259 Social History Date Type Detail Facility Unknown if ever smoked [facility] Other Sex Assigned At Sex Assigned At Bir th [facility] Other Evaluation note 08-15-2022 Note Date & Type Note Facility 08-15-2022 Evaluation note Encounter Date Diagnosis Assessment Notes Jul, Anxiety (ICD-10 - F41.9) Take medication as directed. May cut in half. Follow up with primary care provider if needed or establish with [place] [facility] Other History general Narrative - Reported Note Date & Type Note Facility History general Narrative - Reported Type Medical History anxiety Surgical History oral surgery [facility] Other Summary Purpose Family History No Family History Records FoundNo Family History Records Found Advance Directives No Advanced Directives Records FoundNo Advanced Directives Records Found Additional Source Comments REASON FOR VISIT (unrecogniz ed section and content) ANXIETY INFORMATION SOURCE (unrecogn ized section and content) DATE CREATED AUTHOR 04/05/2023 [facility] DATE CREATED AUTHOR AUTHOR'S ORGANIZ ATION 12/13/2023 [facility] dical Specialists [facility] FOR RECORDS PERTAINING TO PATIENTS WHO [...] BE BASED ON THE PRIMARY CLINICAL RECORDS. [facility] [employer] provides no warranty or guarantee of the accuracy or completeness of information in this document.
--- NOTE | 2023-12-19 18:57 | US_ITS ---
[address] [address] Patient Name: SIDDHARTH FRANK MRN: [id number] date: 2000 Sex: F Assigned Patient Location: [facility] Current Patient Location: Accession/Order Number: [id number] Exam Date: 12/19/2023 19:05 Report Date: 12/20/2023 07:16 At the request of: ALEX HOWARD Procedure: US OB growth EXAMINATION: US OB growth HISTORY: GESTATIONAL DIABETES MELLITUS O24.419 COMPARISON: No relevant comparison available. FINDINGS: Heart Rate: 141.36 bpm Amniotic Fluid Volume: 10.2 cm, largest fluid pocket 4.2 cm Number: 1 Position: Breech presentation, longitudinal lie BIOMETRY: BPD: 8.56 cm cm; 34 weeks 4 days; 59.60 %% HC: 30.75 cm cm; 34 weeks 2 days; 18.60 %% AC: 31.75 cm cm; 35 weeks 5 days; 90 %% FL: 6.64 cm cm; 34 weeks 1 day; 41.90 %% EFW: 2572.24 g; 5 lbs. 11 oz. 70.40 % FL/AC: 20.92 FL/BPD: 77.58 HC/AC: 0.97 GESTATIONAL AGE: Age by EDC: 34 weeks 1 day JORDI by EDC: 2024-01-29 Age by US: 34 weeks 5 days JORDI by US: 2024-01-25 US/US OB growth IMPRESSION: Normal interval growth Electronically authenticated by: NEW DIAZ Date: 12/20/2023 07:16
--- NOTE | 2023-12-19 18:57 | US_ITS ---
[place] [id number] Patient Name: SIDDHARTH FRANK MRN: [id number] date: 2000 Sex: F Assigned Patient Location: [facility] Current Patient Location: Accession/Order Number: [id number] Exam Date: 12/19/2023 19:05 Report Date: 12/20/2023 07:15 At the request of: ALEX HOWARD Procedure: US OB BPP w non-stress EXAMINATION: US OB BPP w non-stress HISTORY: GESTATIONAL DIABETES MELLITUS O24.419 COMPARISON: No relevant comparison available. TECHNIQUE: Ultrasound biophysical profile was performed in the radiology department. FINDINGS: BREATHING MOVEMENTS: 2 GROSS BODY MOVEMENTS: 2 TONE: 2 QUALITATIVE AMNIOTIC FLUID VOLUME: 2 PRESENTATION: BREECH HEART RATE: 141.36 bpm AMNIOTIC FLUID VOLUME: 10.2 cm GESTATIONAL AGE: 34 weeks 1 day US/US OB BPP w non-stress IMPRESSION: Total biophysical profile score: 8 Electronically authenticated by: NEW DIAZ Date: 12/20/2023 07:15
[2023-12-19 19:45] VITALS: BP 111/70; PULSE 63
== END 2023-12-19 20:22 | disposition home or self-care (01) ==
LOC: US 07:09 → FBC 18:56
PROVIDERS: Visit Provider Obstetrics & Gynecology
DX: O24.419 Gestational diabetes mellitus in pregnancy, unspecified control (principal); Z3A.34 34 weeks gestation of pregnancy
CPT/HCPCS: 76816; 76818

== ENCOUNTER 2023-12-23 07:03 | Outpatient (OUT) | payer BC, SELFPAY ==
--- OUTSIDE RECORDS SUMMARY | 2023-12-23 07:09 | XMS_ITS | CCD ---
Author Organization [facility] Care Team Providers Care Market Risk Manager Name Role Phone Trena Wall Unavailable Alison REFERRAL AGENT-C, Emerald Franco Primary Care Unavailable Alison REFERRAL AGENT-C, Emerald A Attending Unavailable Alison REFERRAL AGENT-C, Emerald A Attending Unavailable Alison REFERRAL AGENT-C, Emerald A Primary Care Unavailable Alison REFERRAL AGENT-C, Emerald A Primary Care Unavailable Alison REFERRAL AGENT-C, Emerald A Attending Unavailable Alison REFERRAL AGENT-C, Emerald A Primary Care Unavailable Alison REFERRAL AGENT-C, Emerald A Attending Unavailable LEE, ALEX Attending [...] instructions at home: Managing pain ? Take dvkn-mek-ptuxtfy and prescription medicines only as told by [...] provider. Document Revised: 03/09/2021 Document Reviewed: 03/09/2021 [employer] Patient Education ? 2021 [employer]. [facility] Vital Signs Date Time Vital Sign Value Performing Clinician Facility 08-15-2022 11:20-0500 Body height 156.21 cm Trena Gaitanault Other [facility] Other 08-15-2022 11:20-0500 Body mass index (BMI) [Ratio] 26.58 kg/m2 Trena Gaitanault Other [facility] Other 08-15-2022 11:20-0500 Body temperature 98.2 [degF] Trena Gaitanault Other [facility] Other 08-15-2022 11:20-0500 Body weight 64.86 kg Trena Gaitanault Other [facility] Other 08-15-2022 11:20-0500 Diastolic blood pressure 73 mm[Hg] Trena Duke Other [facility] Other 08-15-2022 11:20-0500 Respiratory rate 18 /min Trena Gaitanault Other [facility] Other 08-15-2022 11:20-0500 SaO2% (BldA) [Mass fraction] 97 % Trena Gaitanault Other [facility] Other 08-15-2022 11:20-0500 Systolic blood pressure 119 mm[Hg] Trena Gaitanault Other [facility] Other Encounters Encounter Date Encounter Type Care [...] 04-03-2023 End: 04-04-2023 ambulatory Emerald A Alison REFERRAL AGENT-C Facility: [facility] Start: 03-04-2023 End: 03-05-2023 ambulatory Emerald A Alison REFERRAL AGENT-C Facility: [facility] Start: 08-16-2022 End: 08-17-2022 ambulatory Emerald A Alison REFERRAL AGENT-C Facility: [facility] Start: 08-15-2022 End: 08-15-2022 ambulatory Trena Gaitanault Other [facility] Other Start: 08-15-2022 Office outpatient ne w 20 minutes Trena Duke [facility] [place] Start: 04-05-2022 End: 04-06-2022 ambulatory Emerald A Alison REFERRAL AGENT-C Facility: [facility] Payers Date Payer Category Payer [facility] [id number] 2000 Unknown [id number] 2.16.8 40.1.424160.3.579.2.718 2000 Unknown [id number] 2.16.8 40.1.883597.3.579.2.718 2000 Unknown [id number] 2.16.8 40.1.922901.3.579.2.718 2000 Unknown [id number] 2.16.84 0.1.777541.3.579.2.718 2000 Unknown [id number] 2.16.84 0.1.874111.3.579.2.1259 2000 Unknown [id number] 2.16.84 0.1.385435.3.579.2.9 2000 Unknown [id number] 2.16.84 0.1.666969.3.579.2.1259 2000 Unknown [id number] 2.16.84 0.1.502035.3.579.2.9 2000 Unknown [id number] 2.16.84 0.1.280452.3.579.2.9 2000 Unknown [id number] 2.16.84 0.1.110954.3.579.2.9 2000 Unknown [id number] 2.16.84 0.1.277946.3.579.2.9 2000 Unknown [id number] 2.16.84 0.1.812402.3.579.2.1259 Social History Date Type Detail Facility Unknown if ever smoked [facility] Other Sex Assigned At Sex Assigned At Bir th [facility] Other Evaluation note 08-15-2022 Note Date & Type Note Facility 08-15-2022 Evaluation note Encounter Date Diagnosis Assessment Notes Jul, Anxiety (ICD-10 - F41.9) Take medication as directed. May cut in half. Follow up with primary care provider if needed or establish with [place] [facility] Other History general Narrative - Reported Note Date & Type Note Facility History general Narrative - Reported Type Medical History anxiety Surgical History oral surgery [facility] Other Summary Purpose Family History No Family History Records FoundNo Family History Records Found Advance Directives No Advanced Directives Records FoundNo Advanced Directives Records Found Additional Source Comments REASON FOR VISIT (unrecogniz ed section and content) ANXIETY INFORMATION SOURCE (unrecogn ized section and content) DATE CREATED AUTHOR 04/05/2023 [facility] DATE CREATED AUTHOR AUTHOR'S ORGANIZ ATION 12/13/2023 [facility] dical Specialists [facility] FOR RECORDS PERTAINING TO PATIENTS [...] BE BASED ON THE PRIMARY CLINICAL RECORDS. [facility] [employer] provides no warranty or guarantee of the accuracy or completeness of information in this document.
[2023-12-23 19:04] VITALS: BP 118/72; PULSE 70
== END 2023-12-23 19:46 | disposition home or self-care (01) ==
LOC: FBCO 17:59 → FBC 19:00
PROVIDERS: Visit Provider Obstetrics & Gynecology
DX: O24.419 Gestational diabetes mellitus in pregnancy, unspecified control (principal)
CPT/HCPCS: 59025

== ENCOUNTER 2023-12-27 07:12 | Outpatient (OUT) | payer BC, SELFPAY ==
--- OUTSIDE RECORDS SUMMARY | 2023-12-27 07:16 | XMS_ITS | CCD ---
Author Organization [facility] Care Team Providers Care Digital Operations Analyst Name Role Phone Trena Wall Unavailable Alison COMPENSATION SPECIALIST-C, Emerald Franco Primary Care Unavailable Alison COMPENSATION SPECIALIST-C, Emerald A Attending Unavailable Alison COMPENSATION SPECIALIST-C, Emerald A Attending Unavailable Alison COMPENSATION SPECIALIST-C, Emerald A Primary Care Unavailable Alison COMPENSATION SPECIALIST-C, Emerald A Primary Care Unavailable Alison COMPENSATION SPECIALIST-C, Emerald A Attending Unavailable Alison COMPENSATION SPECIALIST-C, Emerald A Primary Care Unavailable Alison COMPENSATION SPECIALIST-C, Emerald A Attending Unavailable LEE, ALEX Attending Unavailable LEE, ALEX Attending Unavailable JONATHAN, NICOLE Attending Unavailable LEE, ALEX Attending Unavailable JONATHAN, NICOLE Attending Unavailable LEE, ALEX Attending Unavailable LEE, ALEX Attending Unavailable LEE, [...] instructions at home: Managing pain ? Take hbqt-lcs-skwptfn and prescription medicines only as told by [...] provider. Document Revised: 03/09/2021 Document Reviewed: 03/09/2021 [employer] Patient Education ? 2021 [employer]. [facility] Vital Signs Date Time Vital Sign Value Performing Clinician Facility 08-15-2022 11:20-0500 Body height 156.21 cm Trena Gaitanault Other [facility] Other 08-15-2022 11:20-0500 Body mass index (BMI) [Ratio] 26.58 kg/m2 Trena Gaitanault Other [facility] Other 08-15-2022 11:20-0500 Body temperature 98.2 [degF] Trena Gaitanault Other [facility] Other 08-15-2022 11:20-0500 Body weight 64.86 kg Trena Gaitanault Other [facility] Other 08-15-2022 11:20-0500 Diastolic blood pressure 73 mm[Hg] Trena Gaitanault Other [facility] Other 08-15-2022 11:20-0500 Respiratory rate 18 /min Trena Gaitanault Other [facility] Other 08-15-2022 11:20-0500 SaO2% (BldA) [Mass fraction] 97 % Trena Duke Other [facility] Other 08-15-2022 11:20-0500 Systolic blood pressure 119 mm[Hg] Trena Wall Other [facility] Other Encounters Encounter Date Encounter Type Care Provider Facility Start: 12-24-2023 End: 12-24-2023 ambulatory ALEX LEE Not Available Start: 12-11-2023 End: 12-11-2023 ambulatory ALEX LEE [...] 04-03-2023 End: 04-04-2023 ambulatory Emerald A Alison COMPENSATION SPECIALIST-C Facility: [facility] Start: 03-04-2023 End: 03-05-2023 ambulatory Emerald A Alison COMPENSATION SPECIALIST-C Facility: [facility] Start: 08-16-2022 End: 08-17-2022 ambulatory Emerald A Alison COMPENSATION SPECIALIST-C Facility: [facility] Start: 08-15-2022 End: 08-15-2022 ambulatory Trena Wall Other [facility] Other Start: 08-15-2022 Office outpatient ne w 20 minutes Trena Wall [facility] Start: 04-05-2022 End: 04-06-2022 ambulatory Emerald A Alison COMPENSATION SPECIALIST-C Facility: [facility] Payers Date Payer Category Payer [facility] [id number] 2000 Unknown [id number] 2.16.8 40.1.611046.3.579.2.718 2000 Unknown [id number] 2.16.8 40.1.900642.3.579.2.718 2000 Unknown [id number] 2.16.8 40.1.955248.3.579.2.718 2000 Unknown [id number] 2.16.84 0.1.493487.3.579.2.718 2000 Unknown [id number] 2.16.84 0.1.421062.3.579.2.9 2000 Unknown [id number] 2.16.84 0.1.965133.3.579.2.9 2000 Unknown [id number] 2.16.84 0.1.858671.3.579.2.9 2000 Unknown [id number] 2.16.84 0.1.959235.3.579.2.9 2000 Unknown [id number] 2.16.84 0.1.703067.3.579.2.9 2000 Unknown [id number] 2.16.84 0.1.554688.3.579.2.9 2000 Unknown [id number] 2.16.84 0.1.161226.3.579.2.9 2000 Unknown [id number] 2.16.84 0.1.007881.3.579.2.1259 2000 Unknown [id number] 2.16.84 0.1.253234.3.579.2.1259 Social History Date Type Detail Facility Unknown if ever smoked [facility] Other Sex Assigned At Sex Assigned At Bir th [facility] Other Evaluation note 08-15-2022 Note Date & Type Note Facility 08-15-2022 Evaluation note Encounter Date Diagnosis Assessment Notes Jul, Anxiety (ICD-10 - F41.9) Take medication as directed. May cut in half. Follow up with primary care provider if needed or establish with ct [facility] Other History general Narrative - Reported Note Date & Type Note Facility History general Narrative - Reported Type Medical History anxiety Surgical History oral surgery [facility] Other Summary Purpose Family History No Family History Records FoundNo Family History Records Found Advance Directives No Advanced Directives Records FoundNo Advanced Directives Records Found Additional Source Comments REASON FOR VISIT (unrecogniz ed section and content) ANXIETY INFORMATION SOURCE (unrecogn ized section and content) DATE CREATED AUTHOR 04/05/2023 [facility] DATE CREATED AUTHOR AUTHOR'S ORGANIZ ATION 12/25/2023 [facility] dical Specialists [employer] FOR RECORDS PERTAINING [...] BE BASED ON THE PRIMARY CLINICAL RECORDS. [facility] [employer] provides no warranty or guarantee of the accuracy or completeness of information in this document.
--- NOTE | 2023-12-27 14:57 | US_ITS ---
[place] [id number] Patient Name: SIDDHARTH FRANK MRN: [id number] date: 2000 Sex: F Assigned Patient Location: [facility] Current Patient Location: Accession/Order Number: [id number] Exam Date: 12/27/2023 15:04 Report Date: 12/28/2023 04:12 At the request of: ALEX HOWARD Procedure: US OB BPP w non-stress EXAMINATION: US OB BPP w non-stress HISTORY:GESTATIONAL DIABETES MELLITUS O24.419 COMPARISON: No relevant comparison available. TECHNIQUE: Ultrasound OB biophysical 12/19/2023 BREATHING MOVEMENTS: 2 GROSS BODY MOVEMENTS: 2 TONE: 2 QUALITATIVE AMNIOTIC FLUID VOLUME: 2 PRESENTATION: BREECH HEART RATE: 140.63 bpm AMNIOTIC FLUID VOLUME: 12.01 cm GESTATIONAL AGE: 35 weeks 2 days US/US OB BPP w non-stress IMPRESSION: Total biophysical profile score: 8 Electronically authenticated by: STAN HANDLEY Date: 12/28/2023 04:12
[2023-12-27 15:41] VITALS: BP 117/75; PULSE 68
== END 2023-12-27 16:06 | disposition home or self-care (01) ==
LOC: US 07:12 → FBC 14:58
PROVIDERS: Visit Provider Obstetrics & Gynecology
DX: O24.419 Gestational diabetes mellitus in pregnancy, unspecified control (principal); Z3A.35 35 weeks gestation of pregnancy
CPT/HCPCS: 76818

== ENCOUNTER 2023-12-30 07:04 | Outpatient (OUT) | payer BC, SELFPAY ==
--- OUTSIDE RECORDS SUMMARY | 2023-12-30 07:06 | XMS_ITS | CCD ---
Author Organization [facility] Care Team Providers Care Billing And Quality Technician Name Role Phone Trena Wall Unavailable Alison SOFTWARE DESIGN ANALYST-C, Emerald Franco Primary Care Unavailable Alison SOFTWARE DESIGN ANALYST-C, Emerald A Attending Unavailable Alison SOFTWARE DESIGN ANALYST-C, Emerald A Attending Unavailable Alison SOFTWARE DESIGN ANALYST-C, Emerald A Primary Care Unavailable Alison SOFTWARE DESIGN ANALYST-C, Emerald A Primary Care Unavailable Alison SOFTWARE DESIGN ANALYST-C, Emerald A Attending Unavailable Alison SOFTWARE DESIGN ANALYST-C, Emerald A Primary Care Unavailable Laison SOFTWARE DESIGN ANALYST-C, Emerald A Attending Unavailable LEE, ALEX Attending [...] instructions at home: Managing pain ? Take [id number] and prescription medicines only as told by [...] provider. Document Revised: 03/09/2021 Document Reviewed: 03/09/2021 [employer] Patient Education ? 2021 [employer]. [facility] Vital Signs Date Time Vital Sign Value Performing Clinician Facility 08-15-2022 11:20-0500 Body height 156.21 cm Trena Gaitanault Other [facility] Other 08-15-2022 11:20-0500 Body mass index (BMI) [Ratio] 26.58 kg/m2 Trena Gaitanault Other [facility] Other 08-15-2022 11:20-0500 Body temperature 98.2 [degF] Trena Gaitanault Other [facility] Other 08-15-2022 11:20-0500 Body weight 64.86 kg Trena Gaitanault Other [facility] Other 08-15-2022 11:20-0500 Diastolic blood pressure 73 mm[Hg] Trena Gaitanault Other [facility] Other 08-15-2022 11:20-0500 Respiratory rate 18 /min Trena Gaitanault Other [facility] Other 08-15-2022 11:20-0500 SaO2% (BldA) [Mass fraction] 97 % Trena Duke Other [facility] Other 08-15-2022 11:20-0500 Systolic blood pressure 119 mm[Hg] Trena Wall Other [facility] Other Encounters Encounter Date Encounter Type Care [...] 04-03-2023 End: 04-04-2023 ambulatory Emerald A Alison SOFTWARE DESIGN ANALYST-C Facility: [facility] Start: 03-04-2023 End: 03-05-2023 ambulatory Emerald A Alison SOFTWARE DESIGN ANALYST-C Facility: [facility] Start: 08-16-2022 End: 08-17-2022 ambulatory Emerald A Alison SOFTWARE DESIGN ANALYST-C Facility: [facility] Start: 08-15-2022 End: 08-15-2022 ambulatory Trena Wall Other [facility] Other Start: 08-15-2022 Office outpatient ne w 20 minutes Trena Wall [facility] Start: 04-05-2022 End: 04-06-2022 ambulatory Emerald A Alison SOFTWARE DESIGN ANALYST-C Facility: [facility] Payers Date Payer Category Payer [facility] [id number] 2000 Unknown [id number] [id number] 2000 Unknown [id number] 2.16.8 [id number] 2000 Unknown [id number] 2.16.8 [id number] 2000 Unknown [id number] 2.16.84 [id number] 2000 Unknown [id number] 2.16.84 [id number] 2000 Unknown [id number] 2.16.84 [id number] 2000 Unknown [id number] 2.16.84 [id number] 2000 Unknown [id number] 2.16.84 [id number] 2000 Unknown [id number] 2.16.84 0.1.026364.3.579.2.9 2000 Unknown [id number] 2.16.84 [id number] 2000 Unknown [id number] 2.16.84 [id number] 2000 Unknown [id number] 2.16.84 [id number] 2000 Unknown [id number] 2.16.84 [id number] Social History Date Type Detail Facility Unknown if ever smoked [facility] Other Sex Assigned At Sex Assigned At Bir th [facility] Other Evaluation note 08-15-2022 Note Date & Type Note Facility 08-15-2022 Evaluation note Encounter Date Diagnosis Assessment Notes Jul, Anxiety (ICD-10 - F41.9) Take medication as directed. May cut in half. Follow up with primary care provider if needed or establish with fl [facility] Other History general Narrative - Reported Note Date & Type Note Facility History general Narrative - Reported Type Medical History anxiety Surgical History oral surgery [facility] Other Summary Purpose Family History No Family History Records FoundNo Family History Records Found Advance Directives No Advanced Directives Records FoundNo Advanced Directives Records Found Additional Source Comments REASON FOR VISIT (unrecogniz ed section and content) ANXIETY INFORMATION SOURCE (unrecogn ized section and content) DATE CREATED AUTHOR 04/05/2023 [facility] DATE CREATED AUTHOR AUTHOR'S ORGANIZ ATION 12/25/2023 [facility] EPIC FOR RECORDS PERTAINING [...] BE BASED ON THE PRIMARY CLINICAL RECORDS. [facility] [employer] provides no warranty or guarantee of the accuracy or completeness of information in this document.
[2023-12-30 19:06] VITALS: BP 120/70; PULSE 81; TEMP 36.9
== END 2023-12-30 19:55 | disposition home or self-care (01) ==
LOC: FBCO 07:04 → FBC 19:03
PROVIDERS: Visit Provider Obstetrics & Gynecology
DX: O99.283 Endocrine, nutritional and metabolic diseases complicating pregnancy, third trimester (principal)
CPT/HCPCS: 59025

== ENCOUNTER 2024-01-01 19:21 | Outpatient (REF) | payer BC, SELFPAY | END 2024-01-01 19:22 | disposition home or self-care (01) | LOC: LAB 19:21 | PROVIDERS: Visit Provider Obstetrics & Gynecology | DX: Z34.93 Encounter for supervision of normal pregnancy, unspecified, third trimester (principal) | CPT/HCPCS: 87081 ==

== ENCOUNTER 2024-01-02 20:31 | Observation (INO) | payer BC, SELFPAY ==
--- NOTE | 2024-01-02 19:03 | US_ITS ---
[address] [address] Patient Name: SIDDHARTH FRANK MRN: [id number] date: 2000 Sex: F Assigned Patient Location: [facility] Current Patient Location: [facility] Accession/Order Number: [id number] Exam Date: 01/02/2024 19:06 Report Date: 01/03/2024 07:04 At the request of: ALEX HOWARD Procedure: US OB BPP w non-stress EXAMINATION: US OB BPP w non-stress HISTORY: GESTATIONAL DIABETES MELLITUS O24.419 COMPARISON: No relevant comparison available. TECHNIQUE: Ultrasound biophysical profile was performed in the radiology department. non-reactive stress testing was performed by nursing staff in the birthing center. FINDINGS: BREATHING MOVEMENTS: 2 GROSS BODY MOVEMENTS: 2 TONE: 2 QUALITATIVE AMNIOTIC FLUID VOLUME: 2 PRESENTATION: BREECH HEART RATE: 152.54 bpm AMNIOTIC FLUID VOLUME: 16.1 cm GESTATIONAL AGE: 36 weeks 1 day US/US OB BPP w non-stress IMPRESSION: Total biophysical profile score: 8 Electronically authenticated by: NEW DIAZ Date: 01/03/2024 07:04
[2024-01-02 19:38] VITALS: BP 138/94; PULSE 61
[2024-01-02 19:39] VITALS: BP 141/100; PULSE 65; TEMP 36.2
[2024-01-02 19:51] VITALS: BP 146/102; PULSE 73
[2024-01-02] MEDS: BETAMETHASONE ACE/BETAMETHASONE SOD PHOS 30 MG/5 ML 12 MG IM (21:34)
[2024-01-02 21:41] LABS: Basophils Percent Auto 0.3 % (0.2-2.0); Eosinophils Absolute Auto 0.1 10^3/uL (0.0-0.7); Eosinophils Percent Auto 1.5 % (0.9-7.0); Hematocrit 41.2 % (36.0-48.0); Hemoglobin 12.7 g/dL (12.0-16.0); Immature Granulocytes Abs Auto 0.05 10^3/uL (0.00-0.03); Immature Granulocytes Pct Auto 0.5 % (0.0-0.5); Lymphocytes Absolute Auto 2.8 10^3/uL (1.2-3.8); Lymphocytes Percent Auto 29.6 % (20.5-60.0); Mean Corpuscular HGB Conc 30.8 g/dL (29.9-35.2); Mean Corpuscular Hemoglobin 30.9 pg (26.7-34.0); Mean Corpuscular Volume 100.2 fL (81.0-99.0); Mean Platelet Volume 11.9 fL (9.5-13.5); Monocytes Absolute Auto 0.9 10^3/uL (0.3-0.8); Neutrophils Absolute Auto 5.5 10^3/uL (1.4-6.5); Neutrophils Percent Auto 58.1 % (43.0-75.0); Platelet Count 178 10^3/uL (150-450); Red Blood Count 4.11 10^6/uL (4.20-5.40); Red Cell Distribution Width 12.8 % (11.0-15.0); White Blood Count 9.4 10^3/uL (4.0-11.0)
[2024-01-02 21:43] LABS: Bilirubin Urine NEGATIVE (NEGATIVE); Blood Urine TRACE-I (NEGATIVE); Clarity Urine CLEAR (CLEAR); Color Urine LT. YELLOW (YELLOW); Glucose Urine UA NEGATIVE (NEGATIVE); Ketones Urine NEGATIVE (NEGATIVE); Leukocyte Esterase Urine SMALL (NEGATIVE); Nitrite Urine NEGATIVE (NEGATIVE); Protein Urine TRACE mg/dL (NEG/TRACE); Specific Gravity Urine <=1.005 (1.005-1.025); Urobilinogen Urine 0.2 EU/dL (0.2-1.0)
[2024-01-02 21:48] LABS: Urine Microscopic Indicated YES
[2024-01-02 21:50] VITALS: BP 139/88; PULSE 62
[2024-01-02 21:55] LABS: Alanine Aminotransferase 14 U/L (14-59); Aspartate Amino Transferase 18 U/L (15-37); Estimated GFR (African America >60 (>=60); Estimated GFR (Non-African Ame >60 (>=60); Uric Acid 7.5 mg/dL (2.6-6.0)
[2024-01-02 21:55] LABS: Amphetamine Screen Urine NEGATIVE (NEGATIVE); Barbiturates Screen Urine NEGATIVE (NEGATIVE); Benzodiazepines Screen Urine NEGATIVE (NEGATIVE); Buprenorphine Screen Urine NEGATIVE (NEGATIVE); Cannabinoid Screen Urine NEGATIVE (NEGATIVE); Cocaine Screen Urine NEGATIVE (NEGATIVE); Creatinine Urine Random 44.49 mg/dL (20.00-300.00); Methadone Screen Urine NEGATIVE (NEGATIVE); Methamphetamines Screen Urine NEGATIVE (NEGATIVE); Opiate Screen Urine NEGATIVE (NEGATIVE); Oxycodone Screen Urine NEGATIVE (NEGATIVE); Phencyclidine Screen Urine NEGATIVE (NEGATIVE); Protein Creatinine Ratio Urine 0.57; Total Protein Urine Random 25.4 mg/dL (<=11.9); Tricyclic Antidepressant Urine NEGATIVE (NEGATIVE)
[2024-01-02 21:59] LABS: Bacteria Urine TRACE #/HPF (NONE SEEN); Cast Seen? NONE SEEN #/LPF (NONE SEEN); Crystals Seen? None Seen #/HPF (None Seen); Mucus Urine NONE SEEN (NONE SEEN); RBC Urine NONE SEEN #/HPF (0-2); Squamous Epithelial Cell Urine MODERATE #/LPF (NONE/RARE); Urine Culture Indicated YES
[2024-01-02 22:00] LABS: Partial Thromboplastin Time 31.3 sec (22.3-36.2); Prothrombin Time 9.6 sec (9.0-11.6)
[2024-01-02 22:03] LABS: INR <0.93
[2024-01-02 22:29] LABS: Fibrinogen 478 mg/dL (200-400)
[2024-01-02 22:51] VITALS: BP 125/76; PULSE 58
[2024-01-02 23:51] VITALS: BP 133/80; PULSE 59
[2024-01-03] VITALS (15 sets, daily range): BP systolic 99–136; BP diastolic 57–85; PULSE 55–80; TEMP 36.1; O2SAT 97
--- NOTE | 2024-01-03 03:57 | PC.NURSE ---
DTR 1+ upper, 2+ lower
--- NOTE | 2024-01-03 07:47 | P.OBHP_ITS ---
OB - H&P: HPI History of Present Illness Chief complaint: O24. 419 US/NST : 1 Para: 0 Gestational age based on last menstrual period: 36 2/7WKS Indications for induction: induced hypertension History of Present Dating criteria: LMP confirmed by 1st trimester US care: good care Ultrasounds: normal 1st trimester US and normal mid trimester US complications: preeclampsia and gestational diabetes Labs Blood type: O (+) positive Rubella: immune RPR/VDLR: nonreactive GBS status: unknown HBsAG: negative Review of Systems ROS Status of ROS: 10 or more systems reviewed and unremarkable except as noted in history and below Meds Home Medications and Allergies Home Medications ?Medication ?Instructions ?Recorded ?Confirmed ?Type vits,calcium 21-iron fum 1 tab PO DAILY 11/08/23 12/19/23 History 14 mg iron-folic acid 400 mcg tablet ( Complete) Allergies Allergy/AdvReac Type Severity Reaction Status Date / Time No Known Drug Allergies Allergy Verified 11/08/23 13:25 Exam Constitutional Vital Signs, click to edit/add: Last Vital Signs Temp 96.9 F L 01/03/24 03:47 Pulse 67 01/03/24 07:23 Resp 16 01/03/24 03:47 BP 131/85 01/03/24 07:23 Pulse Ox 97 01/03/24 03:47 Documenting provider has reviewed patient's vital signs: yes Common normals: no apparent distress Respiratory Common normals: normal respiratory effort and clear to auscultation bilaterally Cardio Common normals: regular rate and regular rhythm GI Common normals: Normal to inspection, nondistended, normoactive bowel sounds present Extremity Common normals: normal to inspection and no calf tenderness Results Labs Labs: Short CBC 01/02/24 Range/Units 21:28 WBC 9.4 (4.0-11.0) 10^3/uL Hgb 12.7 (12.0-16.0) g/dL Hct 41.2 (36.0-48.0) % Plt Count 178 (150-450) 10^3/uL BMP 01/02/24 21:28 BUN 16.0 Creatinine 0.88 Liver Function 01/02/24 Range/Units 21:28 AST 18 (15-37) U/L ALT 14 (14-59) U/L Urine 01/02/24 Range/Units 21:20 Urine Color Lt. yellow (YELLOW) Urine Clarity Clear (CLEAR) Urine pH 6.0 (5.0-9.0) Ur Specific Superior <=1.005 A (1.005-1.025) Urine Protein Trace (NEG/TRACE) mg/dL Urine Glucose (UA) Negative (NEGATIVE) mg/dL OB - A/P Assessment and Plan (1) Gestational diabetes mellitus: Qualifiers: Gestational diabetes mellitus control: diet-controlled Trimester: sec ond trimester Qualified Code(s): O24.410 - Gestational diabetes mellitus in , diet controlled (2) Preeclampsia: Assessment and Plan: continue to obeserve, cont celestone, iv abx if decide to deliver, labs reviewed, protein cr ration 0.57 Qualifiers: Trimester: third trimester Qualified Code(s): O14.93 - Unspecified pre- eclampsia, third trimester (3) Breech position of fetus: (4) Intrauterine :
--- NOTE | 2024-01-03 08:24 | PC.NURSE ---
bs fasting -117, states is high for pt but explained celestone dosing and side effect of high blood sugars as expected
--- NOTE | 2024-01-03 09:56 | PC.NURSE ---
1 hr pp bs per pt-135, Dr martínez in and sees pt
--- NOTE | 2024-01-03 10:56 | PC.NURSE ---
voices no complaints, reviewed plan of care - bp as noted
--- NOTE | 2024-01-03 13:32 | PC.NURSE ---
voices no complaints
--- NOTE | 2024-01-03 15:54 | PC.NURSE ---
UP TO SHOWER
--- NOTE | 2024-01-03 17:09 | PC.NURSE ---
1330 1 hr pp lunch bs 175
--- NOTE | 2024-01-03 19:08 | PC.NURSE ---
visiting with family who point out Manda appears flushed and her forearms are reddened from wrist to shoulder on both arms- denies itching or shortness of breath, 98.9. Cheeks are flushed. pt states my bracelet is getting tight and my arms and fingers feel puffy-Dr Hylton notified of same
[2024-01-03] MEDS: BETAMETHASONE ACE/BETAMETHASONE SOD PHOS 30 MG/5 ML 12 MG IM (21:47)
[2024-01-04 04:34] VITALS: BP 107/66; PULSE 85
[2024-01-04 05:28] VITALS: BP 119/73; PULSE 72
[2024-01-04 08:21] VITALS: BP 125/70; PULSE 82; TEMP 36.6
[2024-01-04 09:10] VITALS: BP 127/82; PULSE 74
[2024-01-04] MEDS: ACETAMINOPHEN 500 MG TABLET 1000 MG PO (09:12)
--- NOTE | 2024-01-04 09:29 | P.OBPN_ITS ---
OB - PN: Subj Subjective Narrative: 23 yo at 36 3/7wks presented with elevated bp, bp improving with rest, labs reviewed with patient, pt does complain of a headache this morning but thinks from bed, will continue to observe pt, if bp stays normal with headache resolving with dc home later today Exam Constitutional Vital Signs, click to edit/add: Last Vital Signs Temp 96.9 F L 01/03/24 03:47 Pulse 74 01/04/24 09:10 Resp 16 01/04/24 04:30 BP 127/82 01/04/24 09:10 Pulse Ox 97 01/03/24 03:47 Documenting provider has reviewed patient's vital signs: yes Common normals: no apparent distress Respiratory Common normals: normal respiratory effort and clear to auscultation bilaterally Cardio Common normals: regular rate and regular rhythm GI Common normals: Normal to inspection, nondistended, normoactive bowel sounds present Extremity Common normals: no calf tenderness OB - PN: A/P Assessment and Plan (1) Gestational diabetes mellitus: Qualifiers: Gestational diabetes mellitus control: diet-controlled Trimester: second trimester Qualified Code(s): O24.410 - Gestational diabetes mellitus in , diet controlled (2) Preeclampsia: Assessment and Plan: considering discharge to day if bp stays below 140/90, and headache resolves, pt to return daily for bp check and nst, precautions given to patient in detail. Qualifiers: Trimester: third trimester Qualified Code(s): O14.93 - Unspecified pre- eclampsia, third trimester (3) Breech position of fetus: (4) Intrauterine : Time Spent with Patient Time: Total time spent is greater than 50% in coordination of care (as documented) at patient's floor/unit and/or counseling patient: Total time spent with greater than 50% in coordination of care (as documented) at patient's floor/unit and/or counseling patient: 25 - 35 minutes
[2024-01-04 10:09] VITALS: BP 124/59; PULSE 90
[2024-01-04 11:11] VITALS: BP 129/71; PULSE 70
== END 2024-01-04 11:27 | disposition home or self-care (01) ==
LOC: US 20:31 → FBC 20:31
PROVIDERS: Admitting Provider Obstetrics & Gynecology; Visit Provider Obstetrics & Gynecology
DX: O14.93 Unspecified pre-eclampsia, third trimester (principal); O24.410 Gestational diabetes mellitus in pregnancy, diet controlled; O32.1XX0 Maternal care for breech presentation, not applicable or unspecified; Z3A.36 36 weeks gestation of pregnancy
CPT/HCPCS: 36415; 59025; 76818; 80307; 81001; 82565; 82570; 84156; 84450; 84460; 84520; 84550; 85025; 85384; 85610; 85730; 86850; 86900; 86901; 87086; 96372; G0378; G0379; J0702

== ENCOUNTER 2024-01-05 09:40 | Inpatient (IN) | payer BC, SELFPAY ==
[2024-01-05] VITALS (41 sets, daily range): BP systolic 111–170; BP diastolic 61–105; PULSE 55–118; TEMP 36.2–37.7; O2SAT 95–97
[2024-01-05 11:17] LABS: Hematocrit 32.7 % (36.0-48.0); Hemoglobin 11.2 g/dL (12.0-16.0); Mean Corpuscular HGB Conc 34.3 g/dL (29.9-35.2); Mean Corpuscular Hemoglobin 30.9 pg (26.7-34.0); Mean Corpuscular Volume 90.1 fL (81.0-99.0); Mean Platelet Volume 12.2 fL (9.5-13.5); Platelet Count 176 10^3/uL (150-450); Red Blood Count 3.63 10^6/uL (4.20-5.40); White Blood Count 8.9 10^3/uL (4.0-11.0)
[2024-01-05 11:18] LABS: Red Cell Distribution Width 12.4 % (11.0-15.0)
[2024-01-05] MEDS: ONDANSETRON 4 MG RAPDIS TABLET SL (11:27)
[2024-01-05 11:32] LABS: Amphetamine Screen Urine NEGATIVE (NEGATIVE); Barbiturates Screen Urine NEGATIVE (NEGATIVE); Benzodiazepines Screen Urine NEGATIVE (NEGATIVE); Buprenorphine Screen Urine NEGATIVE (NEGATIVE); Cannabinoid Screen Urine NEGATIVE (NEGATIVE); Cocaine Screen Urine NEGATIVE (NEGATIVE); Methadone Screen Urine NEGATIVE (NEGATIVE); Methamphetamines Screen Urine NEGATIVE (NEGATIVE); Opiate Screen Urine NEGATIVE (NEGATIVE); Oxycodone Screen Urine NEGATIVE (NEGATIVE); Phencyclidine Screen Urine NEGATIVE (NEGATIVE); Tricyclic Antidepressant Urine NEGATIVE (NEGATIVE)
[2024-01-05] MEDS: FAMOTIDINE/PF 20 MG/2 ML VIAL IV (13:53)
[2024-01-05] MEDS: METOCLOPRAMIDE HCL 10 MG/2 ML VIAL IVP (13:54)
[2024-01-05] MEDS: CITRIC ACID/SODIUM CITRATE 30 ML SOLUTION ORACIT SHOHL'S SOLN PO (13:54)
[2024-01-05] MEDS: 0.9 % SODIUM CHLORIDE 1,000 ML 1000 ML IV (13:55)
--- NOTE | 2024-01-05 14:31 | PM.OBHP ---
OB - H&P: HPI History of Present Illness Chief complaint: NST @ 09:00 : 1 Para: 0 Gestational age based on last menstrual period: 36 4/7 Comments: 23 yo at 36 4/7wks presents for nst, pt complains vision changes with elevated bp, neg urinary symptoms, positive fm, neg vag bleeding, ctxns History of Present Dating criteria: LMP confirmed by 1st trimester US care: good care Ultrasounds: normal 1st trimester US and normal mid trimester US complications: preeclampsia (with severe features, vision changes) and gestational diabetes Medical complications OB: none Labs Rubella: immune RPR/VDLR: nonreactive GBS status: negative HBsAG: negative Review of Systems ROS Status of ROS: 10 or more systems reviewed and unremarkable except as noted in history and below PFSH [facility] Social History Highest level of school completed/degree received: Bachelor's degree Meds Home Medications and Allergies Home Medications ?Medication ?Instructions ?Recorded ?Confirmed ?Type vits,calcium 21-iron fum 1 tab PO DAILY 11/08/23 01/05/24 History 14 mg iron-folic acid 400 mcg tablet ( Complete) cephalexin .ROUTE 01/05/24 History Allergies Allergy/AdvReac Type Severity Reaction Status Date / Time No Known Drug Allergies Allergy Verified 01/05/24 10:24 Exam Constitutional Vital Signs, click to edit/add: Last Vital Signs Temp 99.8 F 01/05/24 11:21 Pulse 71 01/05/24 13:49 BP 140/84 01/05/24 13:49 Documenting provider has reviewed patient's vital signs: yes Common normals: no apparent distress Respiratory Common normals: normal respiratory effort and clear to auscultation bilaterally Cardio Common normals: regular rate and regular rhythm GI Common normals: Normal to inspection, nondistended, normoactive bowel sounds present Extremity Common normals: no calf tenderness Results Labs Labs: Short CBC 01/05/24 Range/Units 10:57 WBC 8.9 (4.0-11.0) 10^3/uL Hgb 11.2 L (12.0-16.0) g/dL Hct 32.7 L (36.0-48.0) % Plt Count 176 (150-450) 10^3/uL OB - A/P Assessment and Plan (1) Intrauterine : (2) Breech position of fetus: (3) Preeclampsia: Assessment and Plan: severe features present, unable to perform ecv, all options discussed with patient, will perform c/s, consent obtained, mmc reviewed, iv, iv abx, routine labs, efm continuous Qualifiers: Trimester: third trimester Qualified Code(s): O14.93 - Unspecified pre-eclampsia, third trimester (4) Gestational diabetes mellitus: Qualifiers: Gestational diabetes mellitus control: diet-controlled Trimester: second trimester Qualified Code(s): O24.410 - Gestational diabetes mellitus in , diet controlled Plan see above Urinary Catheter Management Urinary Catheter Management Urethral: Cath placed during this visit: yes Urethral indwelling: No Insertion date: 01/05/24 Insertion time: 13:40
[2024-01-05] MEDS: 0.9 % SODIUM CHLORIDE 1,000 ML 999 ML IV (14:34)
[2024-01-05] MEDS: CEFAZOLIN SODIUM/DEXTROSE,ISO 2 GM/50 ML PIGGYBACK IV ×2 (14:34→21:10)
[2024-01-05] MEDS: LACTATED RINGER'S SOLUTION 1,000 ML 50 ML IV ×2 (15:08→15:09)
--- NOTE | 2024-01-05 15:22 | P.ON_ITS ---
Brief Operative Note Date of procedure: 01/05/24 Pre-op diagnosis general: iup at 36 4/7wks, preeclampsia, gdma1 Post-op diagnosis: same as pre-op Procedure: NAME OF PROCEDURE: [ section ] PROCEDURE: Patient was taken back to the Operating Room where she was given a spinal anesthesia with Duramorph without difficulty. She was prepped and draped in the normal sterile fashion. A Pfannenstiel skin incision was then made 2 cm above the symphysis pubis and carried down to underlying rectus fascia using a Bovie. The fascia was incised in the midline and extended laterally using Nichole scissors. Two Aj clamps were placed on the superior aspect of the fascia and dissected off the underlying rectus muscles. The same was performed on the inferior aspect as well. The muscles were then in the midline. Peritoneum was identified and entered bluntly. The peritoneum was then extended superiorly and inferiorly with good visualization of the bladder. The bladder blade was inserted. A low transverse incision was made on the patient's uterus and extended laterally digitally. The was then delivered atraumatically after the bladder blade was removed in the cephalic position. The cord was clamped and cut. Cord blood was obtained. The infant was handed off to awaiting team. The patient's placenta was spontaneously delivered. The uterus was then exteriorized. The uterus was cleared of all clots and debris. The bladder blade was reinserted. The patient's uterine incision was closed using #0 Vicryl in a running lock fashion. Excellent hemostasis was assured. The uterus was then returned to the patient's abdomen. The patient's abdomen was copiously irrigated using warm saline. Peritoneal gutters were cleared of all clots and debris. Again excellent hemostasis was assured. The patient's peritoneum was closed using 3-0 Vicryl in a running fashion. The patient's fascia was closed using #0 Vicryl in a running fashion. The patient's skin was closed using 4-0 Vicryl subcuticularly. The patient tolerated the procedure well. Sponge, lap, and needle counts were correct x2. The patient was taken to the Recovery Room in stable condition. Anesthesia: spinal Surgeon: Romulo Hylton Wardrobe Image Consultant: Yazmin Shi Estimated blood loss (mL): 575 Pathology: other (placenta) Condition: stable Disposition: floor Urinary Catheter Management Urinary Catheter Management Urethral: Cath placed during this visit: yes Urethral indwelling: No Insertion date: 01/05/24 Insertion time: 13:40
--- NOTE | 2024-01-05 15:24 | PM.OBPRCCS ---
Procedure Pre-op/Post-op diagnoses: Pre-Op/Post-Op Diagnoses Operation Date: 01/05/24 14:30 <No data on this case meets the specified criteria> Procedure: Procedures Operation Date: 01/05/24 14:30 Actual Procedure Side Surgeon p Not Applicable Romulo Hylton DO [place] Attendant: Yazmin Shi Estimated blood loss (mL): 575 Disposition: floor Anesthesia type: Spinal
[2024-01-05] MEDS: OXYTOCIN/0.9 % SODIUM CHLORIDE 20 UNITS/1,000 ML PLAST..BAG 125 UNIT IV (16:00)
[2024-01-05] MEDS: KETOROLAC TROMETHAMINE 30 MG/ML VIAL IVP (21:14)
[2024-01-06] VITALS (48 sets, daily range): BP systolic 113–172; BP diastolic 64–103; PULSE 62–96; TEMP 36.3–36.8; O2SAT 93–97
[2024-01-06] MEDS: KETOROLAC TROMETHAMINE 30 MG/ML VIAL IVP ×2 (04:20→10:29)
[2024-01-06] MEDS: ACETAMINOPHEN 500 MG TABLET 1000 MG PO ×3 (04:21→23:26)
[2024-01-06] MEDS: ENOXAPARIN SODIUM 40 MG/0.4 ML SYRINGE SUBQ (04:21)
[2024-01-06 06:15] LABS: Basophils Percent Auto 0.1 % (0.2-2.0); Hematocrit 27.6 % (36.0-48.0); Hemoglobin 9.4 g/dL (12.0-16.0); Immature Granulocytes Abs Auto 0.22 10^3/uL (0.00-0.03); Immature Granulocytes Pct Auto 1.4 % (0.0-0.5); Lymphocytes Absolute Auto 1.9 10^3/uL (1.2-3.8); Lymphocytes Percent Auto 11.7 % (20.5-60.0); Mean Corpuscular HGB Conc 34.1 g/dL (29.9-35.2); Mean Corpuscular Hemoglobin 30.9 pg (26.7-34.0); Mean Corpuscular Volume 90.8 fL (81.0-99.0); Mean Platelet Volume 12.8 fL (9.5-13.5); Monocytes Absolute Auto 1.9 10^3/uL (0.3-0.8); Monocytes Percent Auto 11.8 % (1.7-12.0); Neutrophils Absolute Auto 12.1 10^3/uL (1.4-6.5); Platelet Count 169 10^3/uL (150-450); Red Blood Count 3.04 10^6/uL (4.20-5.40); Red Cell Distribution Width 12.8 % (11.0-15.0); White Blood Count 16.1 10^3/uL (4.0-11.0)
[2024-01-06] MEDS: DOCUSATE SODIUM 100 MG CAPSULE PO ×2 (10:30→21:55)
[2024-01-06] MEDS: 0.9 % SODIUM CHLORIDE 1,000 ML 125 ML IV (12:47)
[2024-01-06] MEDS: MAGNESIUM SULFATE IN WATER 40 GM/1,000 ML IV.SOLN IV (12:48)
--- NOTE | 2024-01-06 13:08 | PM.OBPN ---
OB - PN: Subj Subjective Patient comments: no complaints and pain well controlled [place] status: doing well Exam Constitutional Vital Signs, click to edit/add: Last Vital Signs Temp 97.9 F 01/06/24 09:19 Pulse 118 H 01/05/24 21:25 Resp 12 01/06/24 09:19 BP 167/95 H 01/06/24 10:55 Pulse Ox 96 01/05/24 18:15 O2 Del Method Room Air 01/06/24 09:19 Documenting provider has reviewed patient's vital signs: yes Common normals: no apparent distress Respiratory Common normals: normal respiratory effort and clear to auscultation bilaterally Cardio Common normals: regular rate and regular rhythm GI Common normals: Normal to inspection, nondistended, normoactive bowel sounds present Extremity Common normals: no calf tenderness Results Labs Labs: Short CBC 01/06/24 Range/Units 05:47 WBC 16.1 H (4.0-11.0) 10^3/uL Hgb 9.4 L (12.0-16.0) g/dL Hct 27.6 L (36.0-48.0) % Plt Count 169 (150-450) 10^3/uL Urinary Catheter Management Urinary Catheter Management Urethral: Cath placed during this visit: yes Urethral indwelling: No Insertion date: 01/05/24 Insertion time: 13:40 OB - PN: A/P Assessment and Plan (1) Intrauterine : (2) Breech position of fetus: (3) Preeclampsia: Qualifiers: Trimester: third trimester Qualified Code(s): O14.93 - Unspecified pre-eclampsia, third trimester (4) Gestational diabetes mellitus: Qualifiers: Gestational diabetes mellitus control: diet-controlled Trimester: second trimester Qualified Code(s): O24.410 - Gestational diabetes mellitus in , diet controlled Plan - day: 1 Plan: routine postop care Comment: start magnesium and labetalol, cont expectant mgmt Time Spent with Patient Time: Total time spent is greater than 50% in coordination of care (as documented) at patient's floor/unit and/or counseling patient: Total time spent with greater than 50% in coordination of care (as documented) at patient's floor/unit and/or counseling patient: less than 15 minutes
[2024-01-06] MEDS: LABETALOL HCL 200 MG TABLET PO ×2 (13:15→23:27)
[2024-01-06] MEDS: IBUPROFEN 400 MG TABLET 800 MG PO (17:42)
[2024-01-07] VITALS (26 sets, daily range): BP systolic 102–162; BP diastolic 64–94; PULSE 71–91; TEMP 36.2–36.6; O2SAT 95–100
[2024-01-07] MEDS: IBUPROFEN 400 MG TABLET 800 MG PO ×3 (01:37→18:00)
[2024-01-07] MEDS: ENOXAPARIN SODIUM 40 MG/0.4 ML SYRINGE SUBQ (03:15)
--- NOTE | 2024-01-07 08:08 | P.OBPN_ITS ---
OB - PN: Subj Subjective Patient comments: no complaints [place] status: doing well [place] feeding status: exclusively Exam Constitutional Vital Signs, click to edit/add: Last Vital Signs Temp 97.9 F 01/07/24 05:00 Pulse 71 01/07/24 05:00 Resp 18 01/07/24 03:01 BP 134/81 01/07/24 05:00 Pulse Ox 97 01/06/24 23:36 O2 Del Method Room Air 01/06/24 23:36 Documenting provider has reviewed patient's vital signs: yes Common normals: no apparent distress General appearance: cooperative Orientation/consciousness: Yes awake, Yes oriented to person, Yes oriented to place and Yes oriented to time HENMT Common normals: normocephalic Eye Common normals: EOMs intact bilaterally Neck & C-Spine Common normals: full ROM and no lymphadenopathy Lymph Lymphatic: no lymphadenopathy noted Chest Common normals: inspection of chest normal Respiratory Common normals: normal respiratory effort Effort & inspection: able to speak in complete sentences Auscultation: clear to auscultation bilaterally Cardio Common normals: regular rate and regular rhythm Rate: regular rate Rhythm: regular rhythm GI Common normals: Normal to inspection, nondistended, normoactive bowel sounds present, soft to palpation and non-tender Auscultation: normoactive bowel sounds Palpation: soft Back & Pelvis Common normals: no CVA tenderness Thoracic spine/upper back: normal to inspection Extremity Common normals: normal to inspection Neuro Common normals: oriented x3 Sensorium/orientation: awake, alert, oriented to person, oriented to place and oriented to time Psych Common normals: mental status grossly normal, thought process normal, cooperative, affect normal, speech normal, activity/motor behavior normal, denies hallucinations, denies homicidal ideation and denies suicidal ideation Urinary Catheter Management Urinary Catheter Management Urethral: Cath placed during this visit: yes Urethral indwelling: No Insertion date: 01/05/24 Insertion time: 13:40 OB - PN: A/P Assessment and Plan (1) Intrauterine : (2) Breech position of fetus: (3) Preeclampsia: Qualifiers: Trimester: third trimester Qualified Code(s): O14.93 - Unspecified pre- eclampsia, third trimester (4) Gestational diabetes mellitus: Qualifiers: Gestational diabetes mellitus control: diet-controlled Trimester: second trimester Qualified Code(s): O24.410 - Gestational diabetes mellitus in , diet controlled Plan - day: 2 Plan: routine postop care Time Spent with Patient Time: Total time spent is greater than 50% in coordination of care (as documented) at patient's floor/unit and/or counseling patient: Total time spent with greater than 50% in coordination of care (as documented) at patient's floor/unit and/or counseling patient: less than 15 minutes
[2024-01-07] MEDS: MAGNESIUM SULFATE IN WATER 40 GM/1,000 ML IV.SOLN IV (08:20)
[2024-01-07] MEDS: LABETALOL HCL 200 MG TABLET PO ×2 (08:22→22:35)
[2024-01-07] MEDS: ACETAMINOPHEN 500 MG TABLET 1000 MG PO ×2 (08:22→18:01)
[2024-01-07] MEDS: DOCUSATE SODIUM 100 MG CAPSULE PO ×2 (08:22→22:35)
[2024-01-07] MEDS: 0.9 % SODIUM CHLORIDE 1,000 ML 50 ML IV (08:23)
[2024-01-08 00:13] VITALS: BP 152/85; TEMP 36.6
[2024-01-08] MEDS: IBUPROFEN 400 MG TABLET 800 MG PO ×2 (00:15→06:38)
[2024-01-08] MEDS: ACETAMINOPHEN 500 MG TABLET 1000 MG PO (03:42)
[2024-01-08] MEDS: ENOXAPARIN SODIUM 40 MG/0.4 ML SYRINGE SUBQ (03:42)
--- NOTE | 2024-01-08 07:58 | PM.OBPN ---
OB - PN: Subj Subjective Patient comments: no complaints and pain well controlled [place] status: doing well Exam Constitutional Vital Signs, click to edit/add: Last Vital Signs Temp 98 F 01/08/24 00:13 Pulse 91 H 01/07/24 16:30 Resp 16 01/08/24 00:13 BP 152/85 H 01/08/24 00:13 Pulse Ox 100 01/07/24 16:31 O2 Del Method Room Air 01/08/24 00:13 Documenting provider has reviewed patient's vital signs: yes Common normals: no apparent distress Respiratory Common normals: normal respiratory effort and clear to auscultation bilaterally Cardio Common normals: regular rate and regular rhythm GI Common normals: Normal to inspection, nondistended, normoactive bowel sounds present Extremity Common normals: no calf tenderness Urinary Catheter Management Urinary Catheter Management Urethral: Cath placed during this visit: yes Urethral indwelling: No Insertion date: 01/05/24 Insertion time: 13:40 OB - PN: A/P Assessment and Plan (1) Intrauterine : (2) Breech position of fetus: (3) Preeclampsia: Qualifiers: Trimester: third trimester Qualified Code(s): O14.93 - Unspecified pre-eclampsia, third trimester (4) Gestational diabetes mellitus: Qualifiers: Gestational diabetes mellitus control: diet-controlled Trimester: second trimester Qualified Code(s): O24.410 - Gestational diabetes mellitus in , diet controlled Plan - day: 3 Plan: routine postop care, discharge home and other (fu 1wk) Time Spent with Patient Time: Total time spent is greater than 50% in coordination of care (as documented) at patient's floor/unit and/or counseling patient: Total time spent with greater than 50% in coordination of care (as documented) at patient's floor/unit and/or counseling patient: less than 15 minutes
[2024-01-08 08:13] VITALS: BP 136/94; PULSE 75
[2024-01-08 08:15] VITALS: PULSE 75; TEMP 37.4
[2024-01-08] MEDS: LABETALOL HCL 200 MG TABLET PO (09:08)
[2024-01-08] MEDS: DOCUSATE SODIUM 100 MG CAPSULE PO (09:08)
== END 2024-01-08 15:45 | disposition home or self-care (01) | DRG 788 ==
LOC: FBCO 09:55 → FBC 09:55
PROVIDERS: Admitting Provider Obstetrics & Gynecology; Visit Provider Obstetrics & Gynecology
PROC: 10D00Z1 Extraction of Products of Conception, Low, Open Approach (ICD-10-PCS; CPT 59514; principal; 2024-01-05 14:30)
DX: O14.14 Severe pre-eclampsia complicating childbirth (principal); O32.1XX0 Maternal care for breech presentation, not applicable or unspecified; O24.420 Gestational diabetes mellitus in childbirth, diet controlled; O77.0 Labor and delivery complicated by meconium in amniotic fluid; Z3A.36 36 weeks gestation of pregnancy; Z37.0 Single live birth
CPT/HCPCS: 36415; 51702; 59025; 59412; 64488; 80307; 85025; 85027; 88307; 94667; 94668; 96365; 96366; 96372; 96375; 96376; J0131; J0665; J0690; J1100; J1650; J1885; J2274; J2405; J2590; J2765; J3475; Q0162

== ENCOUNTER 2024-01-10 08:06 | Outpatient (OUT) | payer BC, SELFPAY ==
--- OUTSIDE RECORDS SUMMARY | 2024-01-10 08:10 | XMS_ITS | CCD ---
Author Organization [facility] Care Team Providers Care Support Engineer Name Role Phone Trena Wall Unavailable Alison SUPERVISOR HEAVY EQUIPMENT-C, Emerald A Primary Care Unavailable Alison SUPERVISOR HEAVY EQUIPMENT-C, Emerald A Attending Unavailable Alison SUPERVISOR HEAVY EQUIPMENT-C, Emerald A Attending Unavailable Alison SUPERVISOR HEAVY EQUIPMENT-C, Emerald A Primary Care Unavailable Alison SUPERVISOR HEAVY EQUIPMENT-C, Emerald A Primary Care Unavailable Alison SUPERVISOR HEAVY EQUIPMENT-C, Emerald A Attending Unavailable Alison SUPERVISOR HEAVY EQUIPMENT-C, Emerald A Primary Care Unavailable Alison SUPERVISOR HEAVY EQUIPMENT-C, Emerald A Attending Unavailable CONCETTA, ALEX Attending Unavailable CONCETTA, ALEX Attending Unavailable JONATHAN, NICOLE Attending Unavailable CONCETTA, ALEX Attending Unavailable JONATHAN, NICOLE Attending Unavailable CONCETTA, ALEX Attending Unavailable CONCETTA, ALEX Attending Unavailable CONCETTA, ALEX Attending Unavailable CONCETTA, ALEX Attending Unavailable Concetta, DO Alex Attending Provider [phone] Medications Current Medications Medication Drug Class(es) Dates [...] instructions at home: Managing pain ? Take hyqz-yvw-kuyjltr and prescription medicines only as told by [...] provider. Document Revised: 03/09/2021 Document Reviewed: 03/09/2021 ElseGOkey Patient Education ? 2021 [employer]. [facility] Vital Signs Date Time Vital Sign Value Performing Clinician Facility 08-15-2022 11:20-0500 Body height 156.21 cm Trena Duke Other [facility] Other 08-15-2022 11:20-0500 Body mass index (BMI) [Ratio] 26.58 kg/m2 Trena Duke Other [facility] Other 08-15-2022 11:20-0500 Body temperature 98.2 [degF] Trena Duke Other [facility] Other 08-15-2022 11:20-0500 Body weight 64.86 kg Trena Duke Other [facility] Other 08-15-2022 11:20-0500 Diastolic blood pressure 73 mm[Hg] Trena Duke Other [facility] Other 08-15-2022 11:20-0500 Respiratory rate 18 /min Trena Wall Other [facility] Other 08-15-2022 11:20-0500 SaO2% (BldA) [Mass fraction] 97 % Trena Wall Other [facility] Other 08-15-2022 11:20-0500 Systolic blood pressure 119 mm[Hg] Trena Wall Other [facility] Other Encounters Encounter Date Encounter Type Care Provider Facility Start: 01-05-2024 End: 01-05-2024 ambulatory DO Alex Concetta Work Phone: [facility] Work Phone: Start: 01-05-2024 End: 01-05-2024 Departed Referred DO Alex Concetta Work Phone: [facility] Start: 01-01-2024 End: 01-01-2024 ambulatory ALEX CONCETTA Not Available Start: 12-24-2023 End: 12-24-2023 ambulatory ALEX CONCETTA Not Available Start: 12-11-2023 End: 12-11-2023 ambulatory ALEX CONCETTA Not Available Start: 11-27-2023 End: 11-27-2023 ambulatory ALEX CONCETTA Not Available Start: 11-13-2023 End: 11-13-2023 ambulatory NICOLE JONATHAN Not Available Start: 10-16-2023 End: 10-16-2023 ambulatory ALEX CONCETTA Not Available Start: 09-12-2023 End: 09-12-2023 ambulatory NICOLE JONATHAN Not Available Start: 08-21-2023 End: 08-21-2023 ambulatory ALEX CONCETTA Not Available Start: 07-25-2023 End: 07-25-2023 ambulatory ALEX CONCETTA Not Available Start: 07-04-2023 End: 07-04-2023 ambulatory ALEX CONCETTA Not Available Start: 04-03-2023 End: 04-04-2023 ambulatory Emerald A Alison SUPERVISOR HEAVY EQUIPMENT-C Facility[facility] Start: 03-04-2023 End: 03-05-2023 ambulatory Emerald A Alison SUPERVISOR HEAVY EQUIPMENT-C Facility: [facility] Start: 08-16-2022 End: 08-17-2022 ambulatory Emerald A Alison SUPERVISOR HEAVY EQUIPMENT-C Facility: [facility] Start: 08-15-2022 End: 08-15-2022 ambulatory Trena Wall Other [facility] Other Start: 08-15-2022 Office outpatient ne w 20 minutes Trena Wall [facility] Start: 04-05-2022 End: 04-06-2022 ambulatory Emerald A Alison SUPERVISOR HEAVY EQUIPMENT-C Facility: [facility] Payers Date Payer Category Payer [facility] [id number] 2000 Unknown [id number] 2.16.8 40.1.433129.3.579.2.8 2000 Unknown [id number] 2.16.8 40.1.610174.3.579.2. 2000 Unknown [id number] 2.16.8 40.1.043884.3.579.2.8 2000 Unknown [id number] 2.16.84 0.1.160408.3.579.2.718 2000 Unknown [id number] 2.16.84 0.1.756166.3.579.2.1258 2000 Unknown [id number] 2.16.84 0.1.907435.3.579.2.1258 2000 Unknown [id number] 2.16.84 0.1.499227.3.579.2.1258 2000 Unknown [id number] 2.16.84 0.1.244577.3.579.2.1258 2000 Unknown [id number] 2.16.84 0.1.574607.3.579.2.1258 2000 Unknown [id number] 2.16.84 0.1.005203.3.579.2.1258 2000 Unknown [id number] 2.16.84 0.1.042048.3.579.2.1258 2000 Unknown [id number] 2.16.84 0.1.965104.3.579.2.1259 2000 Unknown [id number] 2.16.84 0.1.632007.3.579.2.1259 2000 Unknown [id number] 2.16.84 0.1.822089.3.579.2.1259 Social History Date Type Detail Facility Unknown if ever smoked [facility] Other Sex Assigned At Sex Assigned At Bir th [facility] Other Start: 2000 Sex Assigned At Female F [facility] Evaluation note 08-15-2022 Note Date & Type Note Facility 08-15-2022 Evaluation note Encounter Date Diagnosis Assessment Notes Jul, Anxiety (ICD-10 - F41.9) Take medication as directed. May cut in half. Follow up with primary care provider if needed or establish with al [facility] Other Evaluation note Note Date & Type Note Facility Evaluation note No assessment information availa [facility] Work Phone: History general Narrative - Reported Note Date & Type Note Facility History general Narrative - Reported Type Medical History anxiety Surgical History oral surgery [facility] Other Summary Purpose Family History No Family History Records FoundNo Family History Records Found Advance Directives No Advanced Directives Records FoundNo Advanced Directives Records Found Additional Source Comments REASON FOR VISIT (unrecogniz ed section and content) ANXIETY INFORMATION SOURCE (unrecogn ized section and content) DATE CREATED AUTHOR 04/05/2023 [facility] DATE CREATED AUTHOR AUTHOR'S ORGANIZ ATION 01/07/2024 [facility] Specialists EPIC Care Teams (unrecognized sec tion and content) Team Status: Inactive Member Role Status Dates Alex Hylton DO Attending Provider Active Start : January 05, 2024 End: January 05, 2024 Goals (unrecognized section and content) Goals may be documented in a n alternate section FOR RECORDS PERTAINING TO PATIENTS WHO ARE [...] BE BASED ON THE PRIMARY CLINICAL RECORDS. [facility] [employer] [facility]. provides no warranty or guarantee of the accuracy or completeness of information in this document.
== END 2024-01-10 08:07 | disposition home or self-care (01) ==
LOC: FBCO 08:07
PROVIDERS: Visit Provider Obstetrics & Gynecology
DX: Z53.9 Procedure and treatment not carried out, unspecified reason (principal)

== ENCOUNTER 2024-01-16 07:55 | Outpatient (OUT) | payer BC, SELFPAY ==
--- OUTSIDE RECORDS SUMMARY | 2024-01-16 07:59 | XMS_ITS | CCD ---
Author Organization [facility] Care Team Providers Care Port Cdl A Driver Name Role Phone Trena Wall Unavailable Alison ENVIRONMENTAL QUALITY ANALYST-C, Emerald A Primary Care Unavailable Alison ENVIRONMENTAL QUALITY ANALYST-C, Emerald A Attending Unavailable Alison ENVIRONMENTAL QUALITY ANALYST-C, Emerald A Attending Unavailable Alison ENVIRONMENTAL QUALITY ANALYST-C, Emerald A Primary Care Unavailable Alison ENVIRONMENTAL QUALITY ANALYST-C, Emerald A Primary Care Unavailable Alison ENVIRONMENTAL QUALITY ANALYST-C, Emerald A Attending Unavailable Alison ENVIRONMENTAL QUALITY ANALYST-C, Emerald A Primary Care Unavailable Alison ENVIRONMENTAL QUALITY ANALYST-C, Emerald A Attending Unavailable DO Alex Hylton Attending Provider Concetta, Alex Admitting Unavailable Concetta, Alex Attending Unavailable CONCETTA, ALEX Attending Unavailable CONCETTA, ALEX Attending Unavailable JONATHAN, NICOLE Attending Unavailable CONCETTA, ALEX Attending Unavailable JONATHAN, NICOLE Attending Unavailable CONCETTA, ALEX Attending Unavailable CONCETTA, ALEX Attending Unavailable CONCETTA, ALEX Attending Unavailable CONCETTA, ALEX Attending Unavailable JONATHAN, NICOLE Attending Unavailable Medications Current Medications Medication Drug [...] Test Name Value Interpretation Reference Range Facil judy Andrews 01-05-2024 L Specimen: [id number] Received: 01/06/24 Status: NKECHI Velasco Num: [id number] Spec Type: Surgical Subm Dr: Alex Hylton Tissues: A Placenta - 3rd Trimester (Greater than 28 weeks) (PLACENTA) Procedures: HE/3, Gross/Micro L5 Age/ Patient Sex Location Account Attending Physician Siddharth Velasquez LABELL [id number] Alex Hylton SPEC NUM: [id number] RECD: 01/06/24 STATUS: NKECHI VELASCO NUM: [id number] JIMMY: 01/05/[address]: Alex Hylton ENTERED: 01/06/[address] [facility] DR: [facility],Lab SPEC TYPE: Surgical DEPT: MCKAYLA PAYTON ORDERED: HE/3, Gross/Micro L5 ORDERED: HE/3, Gross/Micro L5 Pathological Diagnosis Placental removal, delivery: -Mature third trimester placenta with three-vessel cord, appropriate for gestational age, 462 g -No evidence of acute chorioamnionitis, funisitis, or villitis -Incidental minor subchorionic fibrinoid deposition at the surface -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 The 11.3 x 1.1 cm, three-vessel, de jesus umbilical cord inserts eccentrically into the chorionic plate, 2.3 cm from the placental disc margin. The cord has normal spiraling with no knots or lesions present. The marginally inserted, complete membranes are de jesus-pink, opaque and slippery with the point of rupture from the disc margin that cannot be determined. Intramembranous blood vessels are Specimen: [id number] Received: 01/06/24 Status: NKECHI Velasco Num: [id number] Spec Type: Surgical Subm Dr: Alex Hylton Tissues: A Placenta - 3rd Trimester (Greater than 28 weeks) (PLACENTA) Procedures: /3, Gross/Micro L5 Patient: Siddharth Velasquez [id number] (Continued) Specimen: [id number] Received: 01/06/24 (Continued) Gross Description (Continued) Signed (signature on file) Luis Bella MD 01/09/24 7789 Specimen: [id number] Received: 01/06/24 Status: NKECHI Velasco Num: [id number] Spec Type: Surgical Subm Dr: Alex Hylton Tissues: A Placenta - 3rd Trimester (Greater than 28 weeks) (PLACENTA) Procedures: HE/3, Gross/Micro L5 Patient: Siddharth Velasquez [id number] (Continued) Specimen: [id number] Received: 01/06/24 (Continued) Gross Description (Continued) absent. The chorionic plate is ramirez-blue with patent vessels that span out magistrally over the surface. The maternal surface has intact, lobulated cotyledons. No loose or adherent blood clot is attached to the placental disc. The parenchyma is pink-red and spongiform. The 14.4 x 14.1 x 3.2 cm placental disc, devoid of membranes and cord, has a trimmed weight of 462 grams. Summary of sections: A1: umbilical cord at end and membrane roll including possible site of rupture A2: umbilical cord at placental end and parenchyma adjacent to cord insertion site A3: random mid-zonal section TW Microscopic Description Microscopic examinations are performed supporting the above interpretation CPT Codes 77127 Specimen: [id number] Received: 01/06/24 Status: NKECHI Velasco Num: [id number] Spec Type: Surgical Subm Dr: Alex Hylton Tissues: A Placenta - 3rd Trimester (Greater than 28 weeks) (PLACENTA) Procedures: /Dieudonne Bryan/Karena L5 Patient: Siddharth Velasquez [id number] (Continued) Signed (signature on file) Luis Bella MD 07/1858 [facility] Patient Handouton 04-05-2022 Patient Handout Neurology Tension [...] instructions at home: Managing pain ? Take clbb-rvz-iobddzn and prescription medicines only as told by [...] provider. Document Revised: 03/09/2021 Document Reviewed: 03/09/2021 ElseAkiban Technologies Patient Education ? 2021 [employer]. [facility] Vital Signs Date Time Vital Sign Value Performing Clinician Facility 08-15-2022 11:20-0500 Body height 156.21 cm Trena Gaitanault Other [facility] Other 08-15-2022 11:20-0500 Body mass index (BMI) [Ratio] 26.58 kg/m2 Trena Duke Other [facility] Other 08-15-2022 11:20-0500 Body temperature 98.2 [degF] Trena Duke Other [facility] Other 08-15-2022 11:20-0500 Body weight 64.86 kg Trena Gaitanault Other [facility] Other 08-15-2022 11:20-0500 Diastolic blood pressure 73 mm[Hg] Trena Duke Other [facility] Other 08-15-2022 11:20-0500 Respiratory rate 18 /min Trena Duke Other [facility] Other 08-15-2022 11:20-0500 SaO2% (BldA) [Mass fraction] 97 % Trena Duke Other [facility] Other 08-15-2022 11:20-0500 Systolic blood pressure 119 mm[Hg] Trena Duke Other [facility] Other Encounters Encounter Date Encounter Type Care Provider Facility Start: 01-13-2024 End: 01-13-2024 ambulatory NICOLE JONATHAN Not Available Start: 01-05-2024 End: 01-05-2024 ambulatory Alex Concetta [facility] Work Phone: Start: 01-05-2024 End: 01-05-2024 Departed Referred DO Alex Concetta Work Phone: [facility] Start: 01-01-2024 End: 01-01-2024 ambulatory ALEX [...] 04-03-2023 End: 04-04-2023 ambulatory Emerald A Alison ENVIRONMENTAL QUALITY ANALYST-C Facility: [facility] Start: 03-04-2023 End: 03-05-2023 ambulatory Emerald A Alison ENVIRONMENTAL QUALITY ANALYST-C Facility: [facility] Start: 08-16-2022 End: 08-17-2022 ambulatory Emerald A Alison ENVIRONMENTAL QUALITY ANALYST-C Facility: [facility] Start: 08-15-2022 End: 08-15-2022 ambulatory Trena Wall Other [facility] Other Start: 08-15-2022 Office outpatient ne w 20 minutes Trena Duke [facility] Start: 04-05-2022 End: 04-06-2022 ambulatory Emerald Rosas ENVIRONMENTAL QUALITY ANALYST-C Facility:[facility] Payers Date Payer Category Payer Self-pay [address] [facility] [id number] [id number] 2000 Unknown [id number] 2.16.8 40.1.552002.3.579.2.718 2000 Unknown [id number] 2.16.8 40.1.339292.3.579.2.718 2000 Unknown [id number] 2.16.8 40.1.526564.3.579.2.718 2000 Unknown [id number] 2.16.84 0.1.616343.3.579.2.71 2000 Unknown [id number] 2.16.84 0.1.144437.3.579.2.1259 2000 Unknown [id number] 2.16.84 0.1.254009.3.579.2.1258 2000 Unknown [id number] 2.16.84 0.1.327819.3.579.2.9 2000 Unknown [id number] 2.16.84 0.1.244147.3.579.2.9 2000 Unknown [id number] 2.16.84 0.1.581928.3.579.2.9 2000 Unknown [id number] 2.16.84 0.1.923925.3.579.2.1258 2000 Unknown [id number] 2.16.84 0.1.226235.3.579.2.9 2000 Unknown [id number] 2.16.84 0.1.379419.3.579.2.1258 2000 Unknown [id number] 2.16.84 0.1.970795.3.579.2.1259 2000 Unknown [id number] 2.16.84 0.1.807759.3.579.2.1259 2000 Unknown [id number] 2.16.84 0.1.735154.3.579.2.1259 Social History Date Type Detail Facility Unknown if ever smoked [facility] Other Sex Assigned At Sex Assigned At Bir th [facility] Other Start: 2000 Sex Assigned At Female F [facility] Evaluation note 08-15-2022 Note Date & Type Note Facility 08-15-2022 Evaluation note Encounter Date Diagnosis Assessment Notes Jul, Anxiety (ICD-10 - F41.9) Take medication as directed. May cut in half. Follow up with primary care provider if needed or establish with sd [facility] Other Evaluation note Note Date & Type Note Facility Evaluation note No assessment information availa [facility] Work Phone: History general Narrative - Reported Note Date & Type Note Facility History general Narrative - Reported Type Medical History anxiety Surgical History oral surgery [facility] [employer] Other Summary Purpose Family History No Family History Records FoundNo Family History Records FoundNo Family History Records Found Advance Directives No Advanced Directives Records FoundNo Advanced Directives Records FoundNo Advanced Directives Records Found Additional Source Comments REASON FOR VISIT (unrecogniz ed section and content) ANXIETY INFORMATION SOURCE (unrecogn ized section and content) DATE CREATED AUTHOR 04/05/2023 [facility] DATE CREATED AUTHOR AUTHOR'S ORGANIZ ATION 01/12/2024 [facility] y[facility] Group DATE CREATED AUTHOR AUTHOR'S ORGANIZ ATION 01/16/2024 [facility] dical Specialists EPIC Care Teams [...] BE BASED ON THE PRIMARY CLINICAL RECORDS. [facility] [employer] [facility]. provides no warranty or guarantee of the accuracy or completeness of information in this document.
== END 2024-01-16 11:20 | disposition home or self-care (01) ==
LOC: FBCO 07:56
PROVIDERS: Visit Provider Obstetrics & Gynecology
DX: Z39.1 Encounter for care and examination of lactating mother (principal)
CPT/HCPCS: G0463

== ENCOUNTER 2024-01-23 11:38 | Outpatient (OUT) | payer BC, SELFPAY ==
--- OUTSIDE RECORDS SUMMARY | 2024-01-23 11:44 | XMS_ITS | CCD ---
Author Organization [facility] Care Team Providers Care Woodworking Machine Operator Name Role Phone Trena Wall Unavailable Alison IT NETWORK ARCHITECT-C, Emerald A Primary Care Unavailable Alison IT NETWORK ARCHITECT-C, Emerald A Attending Unavailable Alison IT NETWORK ARCHITECT-C, Emerald A Attending Unavailable Alison IT NETWORK ARCHITECT-C, Emerald A Primary Care Unavailable Alison IT NETWORK ARCHITECT-C, Emerald A Primary Care Unavailable Alison IT NETWORK ARCHITECT-C, Emerald A Attending Unavailable Alison IT NETWORK ARCHITECT-C, Emerald A Primary Care Unavailable Alison IT NETWORK ARCHITECT-C, Emerald A Attending Unavailable DO Alex Hylton [...] Range Facil judy Andrews 01-05-2024 L Specimen: [id number] Received: 01/06/24 Status: NKECHI Velasco Num: [id number] Spec Type: Surgical Subm Dr: Alex Hylton Tissues: A Placenta - 3rd Trimester (Greater than 28 weeks) (PLACENTA) Procedures: HE/3, Gross/Micro L5 Age/ Patient Sex Location Account Attending Physician Siddhrath Velasquez LABELL [id number] Alex Hylton SPEC NUM: [id number] RECD: 01/06/24 STATUS: NKECHI VELASCO NUM: [id number] JIMMY: 01/05/[address]: Alex Hylton ENTERED: 01/06/24 [facility] DR: Radha,Lab SPEC TYPE: Surgical DEPT: MCKAYLA [...] be determined. Intramembranous blood vessels are Specimen: [id number] Received: 01/06/24 Status: NKECHI Velasco Num: [id number] Spec Type: Surgical Subm Dr: Alex Hylton Tissues: A Placenta - 3rd Trimester (Greater than 28 weeks) (PLACENTA) Procedures: /3, Gross/Micro L5 Patient: Siddharth Velasquez [id number] (Continued) Specimen: [id number] Received: 01/06/24 (Continued) Gross Description (Continued) Signed (signature on file) Luis Bella MD 01/09/24 2849 Specimen: [id number] Received: 01/06/24 Status: NKECHI Velasco Num: [id number] Spec Type: Surgical Subm Dr: Alex Hylton Tissues: A Placenta - 3rd Trimester (Greater than 28 weeks) (PLACENTA) Procedures: HE/3, Gross/Micro L5 Patient: Siddharth Velasquez [id number] (Continued) Specimen: [id number] Received: 01/06/24 (Continued) Gross Description (Continued) absent. [...] performed supporting the above interpretation CPT Codes 63041 Specimen: [id number] Received: 01/06/24 Status: NKECHI Velasco Num: [id number] Spec Type: Surgical Subm Dr: Alex Hylton Tissues: A Placenta - 3rd Trimester (Greater than 28 weeks) (PLACENTA) Procedures: /Dieudonne Bryan/Karena L5 Patient: Siddharth Velasquez [id number] (Continued) Signed (signature on file) Luis Bella MD 07/1858 [facility] Patient Handouton 04-05-2022 Patient Handout [...] instructions at home: Managing pain ? Take jkyd-btf-rsxnptr and prescription medicines only as told by [...] provider. Document Revised: 03/09/2021 Document Reviewed: 03/09/2021 ElseIDverge Patient Education ? 2021 [employer]. [facility] Vital Signs Date Time Vital Sign Value Performing Clinician Facility 08-15-2022 11:20-0500 Body height 156.21 cm Trena Gaitanault Other [facility] Other 08-15-2022 11:20-0500 Body mass index (BMI) [Ratio] 26.58 kg/m2 Trena Duke Other [facility] Other 08-15-2022 11:20-0500 Body temperature 98.2 [degF] Trena Duke Other [facility] Other 08-15-2022 11:20-0500 Body weight 64.86 kg Trena Gaitanault Other [facility] Other 08-15-2022 11:20-0500 Diastolic blood pressure 73 mm[Hg] Trena Duke Other [facility] Other 08-15-2022 11:20-0500 Respiratory rate 18 /min Trena Duke Other [facility] Other 08-15-2022 11:20-0500 SaO2% (BldA) [Mass fraction] 97 % Trena Duke Other [facility] Other 08-15-2022 11:20-0500 Systolic blood pressure 119 mm[Hg] Trena Duke Other [facility] Other Encounters Encounter Date Encounter Type Care Provider Facility Start: 01-13-2024 End: 01-13-2024 ambulatory NICOLE JONATHAN Not Available Start: 01-05-2024 End: 01-05-2024 ambulatory Alex Concetta [facility] Work Phone: Start: 01-05-2024 End: 01-05-2024 Departed Referred DO Alex Concetta Work Phone: [facility] Start: 01-01-2024 [...] 04-03-2023 End: 04-04-2023 ambulatory Emerald A Alison IT NETWORK ARCHITECT-C Facility: [facility] Start: 03-04-2023 End: 03-05-2023 ambulatory Emerald A Alison IT NETWORK ARCHITECT-C Facility: [facility] Start: 08-16-2022 End: 08-17-2022 ambulatory Emerald A Alison IT NETWORK ARCHITECT-C Facility: [facility] Start: 08-15-2022 End: 08-15-2022 ambulatory Trena Wall Other [facility] Other Start: 08-15-2022 Office outpatient ne w 20 minutes Trena Duke [facility] Start: 04-05-2022 End: 04-06-2022 ambulatory Emerald Rosas IT NETWORK ARCHITECT-C Facility:[facility] Payers Date Payer Category Payer Self-pay 2021 [facility] [id number] [id number] 2000 Unknown [id number] 2.16.8 40.1.439287.3.579.2.718 2000 Unknown [id number] 2.16.8 40.1.088011.3.579.2.718 2000 Unknown [id number] 2.16.8 40.1.987442.3.579.2.718 2000 Unknown [id number] 2.16.84 0.1.424500.3.579.2.71 2000 Unknown [id number] 2.16.84 0.1.109999.3.579.2.1259 2000 Unknown [id number] 2.16.84 0.1.264753.3.579.2.1258 2000 Unknown [id number] 2.16.84 0.1.504027.3.579.2.9 2000 Unknown [id number] 2.16.84 0.1.558317.3.579.2.9 2000 Unknown [id number] 2.16.84 0.1.618229.3.579.2.9 2000 Unknown [id number] 2.16.84 0.1.198896.3.579.2.1258 2000 Unknown [id number] 2.16.84 0.1.836162.3.579.2.9 2000 Unknown [id number] 2.16.84 0.1.873859.3.579.2.1258 2000 Unknown [id number] 2.16.84 0.1.078468.3.579.2.1259 2000 Unknown [id number] 2.16.84 0.1.821272.3.579.2.1259 2000 Unknown [id number] 2.16.84 0.1.828533.3.579.2.1259 Social History Date Type Detail Facility Unknown if ever smoked [facility] Other Sex Assigned At Sex Assigned At Bir th [facility] Other Start: 2000 Sex Assigned At Female F [facility] Evaluation note 08-15-2022 Note Date & Type Note Facility 08-15-2022 Evaluation note Encounter Date Diagnosis Assessment Notes Jul, Anxiety (ICD-10 - F41.9) Take medication as directed. May cut in half. Follow up with primary care provider if needed or establish with ma [facility] Other Evaluation note Note Date & Type Note Facility Evaluation note No assessment information availa [facility] Work Phone: History general Narrative - Reported Note Date & Type Note Facility History general Narrative - Reported Type Medical History anxiety Surgical History oral surgery [facility] Other Summary Purpose Family History No Family History Records FoundNo Family History Records FoundNo Family History Records Found Advance Directives No Advanced Directives Records FoundNo Advanced Directives Records FoundNo Advanced Directives Records Found Additional Source Comments REASON FOR VISIT (unrecogniz ed section and content) ANXIETY INFORMATION SOURCE (unrecogn ized section and content) DATE CREATED AUTHOR 04/05/2023 [facility] DATE CREATED AUTHOR AUTHOR'S ORGANIZ ATION 01/12/2024 [facility] DATE CREATED AUTHOR AUTHOR'S ORGANIZ ATION 01/16/2024 [facility] dical Specialists EPIC Care Teams [...] BE BASED ON THE PRIMARY CLINICAL RECORDS. [facility]. provides no warranty or guarantee of the accuracy or completeness of information in this document.
--- NOTE | 2024-01-23 13:59 | PC.NURSE ---
Manda and 2 week +4 day old Alcides here for support. Mom states everything was going better then 3 days ago he became fussy, wanting to eat all the time, falls asleep at the breast and wanted to be held all the time Discussed normal behavior during growth spurt. Parents agree baby behavior reflected growth spurt. Infant weight is up 293 gms from last visit. Parents are pleased with gain. Discussed infant being very sleepy, not wanting to feed every 2 hours ATC. Encouraged to allow Alcides to wake for feeds but no longer than 3 hours. Also discussed nighttime feeds as mom is frustrated that baby wants to feed every 90 mins or at least wakes that frequently. Encouraged parents to place at bedside for gentle reassurance with patting and soothing. Infant is currently in another room across rodriguez from parents. Both parents states are willing to try so that sleep can be maximized. Infant to breast, interested in latch without shield but unanable to sustain latch, baby becomes frustrated and pushes away. Milk dripping from both breasts. Shield placed and baby latches and feeds. Still has a burst and pause feeding/sucking pattern but returns to sucking does 20 min on side 1 and 10 on side 2. Plan is to allow infant to wake on own or up to 3 hours between feeds, use regular nipple shield fo r feeds, discontinue use of Neotech shield as much as possible and return next week for on going support. Parents in agreement of plan. Leaves ambulatory for home.
== END 2024-01-23 13:30 | disposition home or self-care (01) ==
LOC: FBCO 11:38
PROVIDERS: Visit Provider Obstetrics & Gynecology
DX: Z39.1 Encounter for care and examination of lactating mother (principal)
CPT/HCPCS: G0463

== ENCOUNTER 2024-02-04 08:31 | Outpatient (OUT) | payer BC, SELFPAY ==
--- OUTSIDE RECORDS SUMMARY | 2024-02-04 08:52 | XMS_ITS | CCD ---
Author Organization [facility] Care Team Providers Care Asp Developer Name Role Phone Trena Wall Unavailable Alison SEAMARK ADVANCED OPERATOR MAINTAINER-C, Emerald A Primary Care Unavailable Alison SEAMARK ADVANCED OPERATOR MAINTAINER-C, Emerald A Attending Unavailable Alison SEAMARK ADVANCED OPERATOR MAINTAINER-C, Emerald A Attending Unavailable Alison SEAMARK ADVANCED OPERATOR MAINTAINER-C, Emerald A Primary Care Unavailable Alison SEAMARK ADVANCED OPERATOR MAINTAINER-C, Emerald A Primary Care Unavailable Alison SEAMARK ADVANCED OPERATOR MAINTAINER-C, Emerald A Attending Unavailable Alison SEAMARK ADVANCED OPERATOR MAINTAINER-C, Emerald A Primary Care Unavailable Alison SEAMARK ADVANCED OPERATOR MAINTAINER-C, Emerald A Attending Unavailable DO Alex Hylton Attending Provider [phone] Concetta, Alex Admitting Unavailable Concetta, Alex Attending [...] Range Facil judy Andrews 01-05-2024 L Specimen: [id number] Received: 01/06/24 Status: NKECHI Velasco Num: [id number] Spec Type: Surgical Subm Dr: Alex Hylton Tissues: A Placenta - 3rd Trimester (Greater than 28 weeks) (PLACENTA) Procedures: HE/3, Gross/Micro L5 Age/ Patient Sex Location Account Attending Physician Siddharth Velasquez LABELL [id number] Alex Hylton SPEC NUM: [id number] RECD: 01/06/24 STATUS: NKECHI VELASCO NUM: [id number] JIMMY: 01/05/[address]: Alex Hylton ENTERED: 01/06/[address] [facility] DR: Radha,Lab SPEC TYPE: Surgical DEPT: MCKAYLA [...] be determined. Intramembranous blood vessels are Specimen: [id number] Received: 01/06/24 Status: NKECHI Velasco Num: [id number] Spec Type: Surgical Subm Dr: Alex Hylton Tissues: A Placenta - 3rd Trimester (Greater than 28 weeks) (PLACENTA) Procedures: /3, Gross/Micro L5 Patient: Siddharth Velasquez [id number] (Continued) Specimen: [id number] Received: 01/06/24 (Continued) Gross Description (Continued) Signed (signature on file) Luis Bella MD 01/09/24 8849 Specimen: [id number] Received: 01/06/24 Status: NKECHI Velasco Num: [id number] Spec Type: Surgical Subm Dr: Alex Hylton Tissues: A Placenta - 3rd Trimester (Greater than 28 weeks) (PLACENTA) Procedures: HE/3, Gross/Micro L5 Patient: Siddharth Velasquez [id number] (Continued) Specimen: [id number] Received: 01/06/24 (Continued) Gross Description (Continued) absent. [...] performed supporting the above interpretation CPT Codes 08884 Specimen: [id number] Received: 01/06/24 Status: NKECHI eVlasco Num: [id number] Spec Type: Surgical Subm Dr: Alex Hylton Tissues: A Placenta - 3rd Trimester (Greater than 28 weeks) (PLACENTA) Procedures: /Dieudonne Bryan/Karena L5 Patient: Siddharth Velasquez [id number] (Continued) Signed (signature on file) Luis Bella MD 07/1858 [facility] Patient Handouton 04-05-2022 Patient Handout [...] instructions at home: Managing pain ? Take dukl-fir-zsnnwcr and prescription medicines only as told by [...] provider. Document Revised: 03/09/2021 Document Reviewed: 03/09/2021 [employer] Patient Education ? 2021 [employer] [facility] Vital Signs Date Time Vital Sign Value Performing Clinician Facility 08-15-2022 11:20-0500 Body height 156.21 cm Trena Gaitanault Other [facility] Other 08-15-2022 11:20-0500 Body mass index (BMI) [Ratio] 26.58 kg/m2 Trena Duke Other [facility] Other 08-15-2022 11:20-0500 Body temperature 98.2 [degF] Trena Duke Other [facility] Other 08-15-2022 11:20-0500 Body weight 64.86 kg Trena Gaitanault Other [facility] Other 08-15-2022 11:20-0500 Diastolic blood pressure 73 mm[Hg] Trena Duke Other [facility] Other 08-15-2022 11:20-0500 Respiratory rate 18 /min Trena Duke Other [facility] Other 08-15-2022 11:20-0500 SaO2% (BldA) [Mass fraction] 97 % Trena Duke Other [facility] Other 08-15-2022 11:20-0500 Systolic blood pressure 119 mm[Hg] Trena Duke Other [facility] Other Encounters Encounter Date Encounter Type Care Provider Facility Start: 01-13-2024 End: 01-13-2024 ambulatory NICOLE JONATHAN Not Available Start: 01-05-2024 End: 01-05-2024 ambulatory Alex Concetta [facility] Work Phone: Start: 01-05-2024 End: 01-05-2024 Departed Referred DO Alex Concetta Work Phone: [facility] Path [facility] Start: 01-01-2024 [...] 04-03-2023 End: 04-04-2023 ambulatory Emerald A Alison SEAMARK ADVANCED OPERATOR MAINTAINER-C Facility: [facility] Start: 03-04-2023 End: 03-05-2023 ambulatory Emerald A Alison SEAMARK ADVANCED OPERATOR MAINTAINER-C Facility: [facility] Start: 08-16-2022 End: 08-17-2022 ambulatory Emerald A Alison SEAMARK ADVANCED OPERATOR MAINTAINER-C Facility: [facility] Start: 08-15-2022 End: 08-15-2022 ambulatory Trena Wall Other [facility] Other Start: 08-15-2022 Office outpatient ne w 20 minutes Trena Duke [facility] Start: 04-05-2022 End: 04-06-2022 ambulatory Emerald Rosas SEAMARK ADVANCED OPERATOR MAINTAINER-C Facility:[facility] Payers Date Payer Category Payer Self-pay 2021 [facility] [id number] 2000 Unknown [id number] 2.16.8 [id number] 2000 Unknown [id number] 2.16.8 40.1.765572.3.579.2.718 2000 Unknown [id number] 2.16.8 40.1.643884.3.579.2.718 2000 Unknown [id number] 2.16.84 0.1.240454.3.579.2.71 2000 Unknown [id number] 2.16.84 0.1.285574.3.579.2.1259 2000 Unknown [id number] 2.16.84 0.1.205600.3.579.2.1258 2000 Unknown [id number] 2.16.84 0.1.714195.3.579.2.9 2000 Unknown [id number] 2.16.84 0.1.997203.3.579.2.9 2000 Unknown [id number] 2.16.84 0.1.070109.3.579.2.9 2000 Unknown [id number] 2.16.84 0.1.474789.3.579.2.1258 2000 Unknown [id number] 2.16.84 0.1.074503.3.579.2.9 2000 Unknown [id number] 2.16.84 0.1.029911.3.579.2.1258 2000 Unknown [id number] 2.16.84 0.1.518052.3.579.2.1259 2000 Unknown [id number] 2.16.84 0.1.804784.3.579.2.1259 2000 Unknown [id number] 2.16.84 0.1.588187.3.579.2.1259 Social History Date Type Detail Facility Unknown if ever smoked [facility] Other Sex Assigned At Sex Assigned At Bir th [facility] Other Start: 2000 Sex Assigned At Female F [facility] Evaluation note 08-15-2022 Note Date & Type Note Facility 08-15-2022 Evaluation note Encounter Date Diagnosis Assessment Notes Jul, Anxiety (ICD-10 - F41.9) Take medication as directed. May cut in half. Follow up with primary care provider if needed or establish with il [facility] Other Evaluation note Note Date & Type Note Facility Evaluation note No assessment information availa [facility] Work Phone: History general Narrative - Reported Note Date & Type Note Facility History general Narrative - Reported Type Medical History anxiety Surgical History oral surgery [facility] [employer] Other Summary Purpose Family History No Family History Records FoundNo Family History Records FoundNo Family History Records Found Advance Directives No Advanced Directives Records FoundNo Advanced Directives Records FoundNo Advanced Directives Records Found Additional Source Comments REASON FOR VISIT (unrecogniz ed section and content) ANXIETY INFORMATION SOURCE (unrecogn ized section and content) DATE CREATED AUTHOR 04/05/2023 [facility] DATE CREATED AUTHOR AUTHOR'S ORGANIZ ATION 01/12/2024 [facility] DATE CREATED AUTHOR AUTHOR'S ORGANIZ ATION 01/16/2024 [facility] EPIC Care Teams (unrecognized sec [...] BE BASED ON THE PRIMARY CLINICAL RECORDS. [facility] [employer] [facility]. provides no warranty or guarantee of the accuracy or completeness of information in this document.
--- NOTE | 2024-02-04 13:28 | PC.NURSE ---
Manda and Alcides arrive. Baby sleeping soundly. To scales and has gained 540 gms since last visit. Mom pleased with infant progress as she no longer uses the supplemental feeder/neotech shield or bottles. Baby is strictly at breast when he wake or cues for feed. Mom does continue to use shield for latch. he is just not done with it Discussed ways to encourage removal of shield with feeds. Baby is pink , alert and active, small yellow stool and large clear void during weight check. Will continue as discussed for feeds. Will plan to attend [facility]OM[facility] group. No further concerns today. Smiling about weight increase. Infant has gained 45 gms/day since last weight check without supplemental bottles. BW 2637 gms, last weight 3100 gms, today's weight 3640 gms.
== END 2024-02-04 08:32 | disposition home or self-care (01) ==
PROVIDERS: Visit Provider Obstetrics & Gynecology
DX: Z39.1 Encounter for care and examination of lactating mother (principal)
CPT/HCPCS: G0463

== ENCOUNTER 2024-04-10 08:11 | Outpatient (OUT) | payer BC, SELFPAY ==
--- OUTSIDE RECORDS SUMMARY | 2024-04-10 08:14 | XMS_ITS | CCD ---
Author Organization [facility] Care Team Providers Care Silk Blocker Name Role Phone Trena Wall Unavailable DO Alex Hylton Attending Provider Concetta, Alex Admitting Unavailable Concetta, Alex Attending Unavailable CONCETTA, ALEX Attending Unavailable CONCETTA, ALEX Attending Unavailable JONATHAN, NICOLE Attending Unavailable CONCETTA, ALEX Attending Unavailable JONATHAN, NICOLE Attending Unavailable CONCETTA, ALEX Attending Unavailable CONCETTA, ALEX Attending Unavailable CONCETTA, ALEX Attending Unavailable CONCETTA, ALEX Attending Unavailable JONATHAN, NICOLE Attending Unavailable JONATHAN, NICOLE Attending Unavailable Alison EQUALIZING SAW OPERATOR-C, Emerald A Attending Unavailable Alison EQUALIZING SAW OPERATOR-C, Emerald A Primary Care Unavailable Medications Current Medications Medication Drug Class(es) [...] Range Facil judy Andrews 01-05-2024 L Specimen: [id number] Received: 01/06/24 Status: NKECHI Velasco Num: [id number] Spec Type: Surgical Subm Dr: Alex Hylton Tissues: A Placenta - 3rd Trimester (Greater than 28 weeks) (PLACENTA) Procedures: HE/3, Gross/Micro L5 Age/ Patient Sex Location Account Attending Physician Siddharth Velasquez LABELL [id number] Alex Hylton SPEC NUM: [id number] RECD: 01/06/24 STATUS: NKECHI VELASCO NUM: [id number] JIMMY: 01/05/[address]: Alex Hylton ENTERED: 01/06/24-[address]: Radha,Lab SPEC TYPE: Surgical DEPT: MCKAYLA [...] be determined. Intramembranous blood vessels are Specimen: [id number] Received: 01/06/24 Status: NKECHI Velasco Num: [id number] Spec Type: Surgical Subm Dr: Alex Hylton Tissues: A Placenta - 3rd Trimester (Greater than 28 weeks) (PLACENTA) Procedures: /3, Gross/Micro L5 Patient: Siddharth Velasquez [id number] (Continued) Specimen: [id number] Received: 01/06/24 (Continued) Gross Description (Continued) Signed (signature on file) Luis Bella MD 01/09/24 1859 Specimen: [id number] Received: 01/06/24 Status: NKECHI Velasco Num: [id number] Spec Type: Surgical Subm Dr: Alex Hylton Tissues: A Placenta - 3rd Trimester (Greater than 28 weeks) (PLACENTA) Procedures: /3, Gross/Micro L5 Patient: EvaSiddharth E [id number] (Continued) Specimen: [id number] Received: 01/06/24 (Continued) Gross Description (Continued) absent. [...] performed supporting the above interpretation CPT Codes 87062 Specimen: [id number] Received: 01/06/24-1248 Status: NKECHI Velasco Num: [id number] Spec Type: Surgical Subm Dr: Alex Hylton Tissues: A Placenta - 3rd Trimester (Greater than 28 weeks) (PLACENTA) Procedures: /3, Gross/Micro L5 Patient: Siddharth Velasquez [id number] (Continued) Signed (signature on file) Luis Bella MD 01/09/24 6359 Normal [facility] Vital Signs Date Time Vital Sign Value Performing Clinician Facility 08-15-2022 11:20-0500 Body height 156.21 cm Trena Wall Other [employer] Other 08-15-2022 11:20-0500 Body mass index (BMI) [Ratio] 26.58 kg/m2 Trena Wall Other [employer] Other 08-15-2022 11:20-0500 Body temperature 98.2 [degF] Trena Wall Other [employer] Other 08-15-2022 11:20-0500 Body weight 64.86 kg Trena Wall Other [employer] Other 08-15-2022 11:20-0500 Diastolic blood pressure 73 mm[Hg] Trena Wall Other [employer] Other 08-15-2022 11:20-0500 Respiratory rate 18 /min Trena Wall Other [employer] Other 08-15-2022 11:20-0500 SaO2% (BldA) [Mass fraction] 97 % Trena Wall Other [employer] Other 08-15-2022 11:20-0500 Systolic blood pressure 119 mm[Hg] Trena Wall Other [employer] Other Encounters Encounter Date Encounter Type Care Provider Facility Start: 02-17-2024 End: 02-17-2024 ambulatory NICOLE CASTILLO Not Available Start: 01-13-2024 End: 01-13-2024 ambulatory NICOLE CASTILLO Not Available Start: 01-05-2024 End: 01-05-2024 ambulatory Alex Hylton [facility] Work Phone: Start: 01-05-2024 End: 01-05-2024 Departed Referred DO Alex Hylton Work Phone: [facility] Path [facility] Start: [...] ALEX CONCETTA Not Available Start: 04-03-2023 End: 04-03-2023 ambulatory Emerald Rossa EQUALIZING SAW OPERATOR-C Facility:[facility] Start: 08-15-2022 End: 08-15-2022 ambulatory Trena Wall Other [employer] Other Start: 08-15-2022 Office outpatient ne w 20 minutes Trena Wall [facility] Payers Date Payer Category Payer Self-pay 2021 [facility] [id number] 2000 Unknown [id number] 2.16.84 0.1.648961.3.579.2.9 2000 Unknown [id number] 2.16.84 0.1.680454.3.579.2.1259 2000 Unknown [id number] 2.16.84 0.1.351872.3.579.2.9 2000 Unknown [id number] 2.16.84 0.1.321024.3.579.2.9 2000 Unknown [id number] 2.16.84 0.1.692255.3.579.2.1258 2000 Unknown [id number] 2.16.84 0.1.686629.3.579.2.1258 2000 Unknown [id number] 2.16.84 0.1.393736.3.579.2.1258 2000 Unknown [id number] 2.16.84 0.1.758575.3.579.2.1258 2000 Unknown [id number] 2.16.84 0.1.442571.3.579.2.1258 2000 Unknown [id number] 2.16.84 0.1.764551.3.579.2.1258 2000 Unknown [id number] 2.16.84 0.1.530204.3.579.2.1258 2000 Unknown [id number] 2.16.84 0.1.370720.3.579.2.1258 2000 Unknown [id number] 2.16.8 40.1.445458.3.579.2.718 Social History Date Type Detail Facility Unknown if ever smoked [employer] Other Sex Assigned At Sex Assigned At Bir th [employer] Other Start: 2000 Sex Assigned At Female F [facility] Evaluation note 08-15-2022 Note Date & Type Note Facility 08-15-2022 Evaluation note Encounter Date Diagnosis Assessment Notes Jul, Anxiety (ICD-10 - F41.9) Take medication as directed. May cut in half. Follow up with primary care provider if needed or establish with ak [employer] Other Evaluation note Note Date & Type Note Facility Evaluation note No assessment information availa [facility] Work Phone: History general Narrative - Reported Note Date & Type Note Facility History general Narrative - Reported Type Medical History anxiety Surgical History oral surgery [employer] Other Summary Purpose Family History No Family History Records FoundNo Family History Records FoundNo Family History Records Found Advance Directives No Advanced Directives Records FoundNo Advanced Directives Records FoundNo Advanced Directives Records Found Additional Source Comments REASON FOR VISIT (unrecogniz ed section and content) ANXIETY Care Teams (unrecognized sec tion and content) Team Status: Inactive Member Role Status Dates Alex Hylton DO Attending Provider Active Start : January 05, 2024 End: January 05, 2024 Goals (unrecognized section and content) Goals may be documented in a n alternate section INFORMATION SOURCE (unrecogn ized section and content) DATE CREATED AUTHOR 01/12/2024 [facility] DATE CREATED AUTHOR AUTHOR'S ORGANIZ ATION 02/18/2024 [facility] EPIC DATE CREATED AUTHOR AUTHOR'S ORGANIZ ATION 04/04/2024 [facility] FOR RECORDS PERTAINING TO PATIENTS WHO ARE [...] BE BASED ON THE PRIMARY CLINICAL RECORDS. [employer] [facility]. provides no warranty or guarantee of the accuracy or completeness of information in this document.
--- NOTE | 2024-04-10 09:19 | PC.NURSE ---
Manda and Alcides arrive for support. Manda states i just stopped bottle feeding him when he got fussy and now he is latching at the breast for his feedings . States that previously would give in and offer bottle anytime baby became disinterested in feeding, anytime he became fussy. States issues started when she went back to work and was given bottle while at daycare. Also noted that baby would not want to be away from her when she got home from work but also did not want to feed allthe time either. Discussed adjustment period for self and NB when going back to work. Infant being from mom for long day, would feel needy and want mom once home from work. Encouraged baby wearing, skin to skin time and feeding on demand. Mom verbalized understanding and agreement. I wasn't sure if it was okay to just hold him as much as he wanted Infant placed to breast, deep latch and feeds well. Mom has active letdown which baby handles well. Discussed possibility of reflux with baby as he show signs after feeding of reflux with discomfort. Mom will speak with PCP as she has also noticed symptoms with baby. Alcides is appropriately social, interactive and thriving. Couplet return home at this time, aware to call for questions and concerns.
== END 2024-04-10 09:34 | disposition home or self-care (01) ==
LOC: FBCO 08:13
PROVIDERS: Visit Provider Obstetrics & Gynecology
DX: Z39.1 Encounter for care and examination of lactating mother (principal)

== ENCOUNTER 2024-08-24 20:42 | Outpatient (REF) | payer BC, SELFPAY ==
--- OUTSIDE RECORDS SUMMARY | 2024-08-24 20:45 | XMS_ITS | CCD ---
Author Organization [facility] Care Team Providers Care Custodial Manager Name Role Phone Trena Wall Unavailable DO Alex Hylton Attending Provider [phone] Alex Hylton Admitting Unavailable Concetta, Alex Attending Unavailable Alison CORRECTIONS CASEWORKER-C, Emerald A Attending Unavailable Alison CORRECTIONS CASEWORKER-C, Emerald A Primary Care Unavailable CONCETTA, ALEX Attending Unavailable CONCETTA, ALEX Attending Unavailable JONATHAN, NICOLE Attending Unavailable CONCETTA, ALEX Attending Unavailable JONATHAN, NICOLE Attending Unavailable CONCETTA, ALEX Attending Unavailable CONCETTA, ALEX Attending Unavailable CONCETTA, ALEX Attending Unavailable CONCETTA, ALEX Attending Unavailable JONATHAN, NICOLE Attending Unavailable JONATHAN, NICOLE Attending Unavailable JONATHAN, NICOLE Attending Unavailable Medications [...] Test Name Value Interpretation Reference Range Balaji Andrews 01-05-2024 L Specimen: [id number] Received: 01/06/24 Status: NKECHI [place]utherfordabel Num: [id number] Spec Type: Surgical Subm Dr: Alex Hylton Tissues: A Placenta - 3rd Trimester (Greater than 28 weeks) (PLACENTA) Procedures: HE/3, Gross/Micro L5 Age/ Patient Sex Location Account Attending Physician Siddahrth Velasquez / LABELL [id number] Alex Hylton SPEC NUM: [id number] RECD: 01/06/24 STATUS: NKECHI VELASCO NUM: [id number] JIMMY: 01/05/[address]: Alex Hylton ENTERED: 01/06/[address]: Radha,Lab SPEC TYPE: Surgical DEPT: [...] be determined. Intramembranous blood vessels are Specimen: [id number] Received: 01/06/24 Status: NKECHI Jeremiah Num: [id number] Spec Type: Surgical Subm Dr: Alex Hylton Tissues: A Placenta - 3rd Trimester (Greater than 28 weeks) (PLACENTA) Procedures: , Gross/Micro L5 Patient: Siddharth Velasquez [id number] (Continued) Specimen: [id number] Received: 01/06/24 (Continued) Gross Description (Continued) Signed (signature on file) Luis Bella MD 01/09/24 1859 Specimen: [id number] Received: 01/06/24 Status: NKECHI Velasco Num: [id number] Spec Type: Surgical Subm Dr: Alex Hylton Tissues: A Placenta - 3rd Trimester (Greater than 28 weeks) (PLACENTA) Procedures: HE/3, Gross/Micro L5 Patient: Siddharth Velasquez Andrew [id number] (Continued) Specimen: [id number] Received: 01/06/24 (Continued) Gross Description (Continued) absent. [...] performed supporting the above interpretation CPT Codes 13573 Specimen: [id number] Received: 01/06/24-124 Status: NKECHI [place] Num: [id number] Spec Type: Surgical Subm Dr: Alex Hylton Tissues: A Placenta - 3rd Trimester (Greater than 28 weeks) (PLACENTA) Procedures: HE/3, Gross/Micro L5 Patient: Siddharth Velasquez [id number] (Continued) Signed (signature on file) Luis Bella MD 01/09/24 [id number] Normal [facility] Vital Signs Date Time Vital Sign Value Performing Clinician Facility 08-15-2022 11:20-0500 Body height 156.21 cm Trena Wall Other [facility] Other 08-15-2022 11:20-0500 Body mass index (BMI) [Ratio] 26.58 kg/m2 Trena Wall Other [facility] Other 08-15-2022 11:20-0500 Body temperature 98.2 [degF] Trena Wall Other [facility] Other 08-15-2022 11:20-0500 Body weight 64.86 kg Trena Wall Other [facility] Other 08-15-2022 11:20-0500 Diastolic blood pressure 73 mm[Hg] Trena Wall Other [facility] Other 08-15-2022 11:20-0500 Respiratory rate 18 /min Trena Wall Other [facility] Other 08-15-2022 11:20-0500 SaO2% (BldA) [Mass fraction] 97 % Trena Wall Other [facility] Other 08-15-2022 11:20-0500 Systolic blood pressure 119 mm[Hg] Trena Wall Other [facility] Other Encounters Encounter Date Encounter Type Care Provider Facility Start: 06-04-2024 End: 06-04-2024 ambulatory NICOLE CASTILLO Not Available Start: 02-17-2024 End: 02-17-2024 ambulatory NICOLE JONATHAN Not Available Start: 01-13-2024 End: 01-13-2024 ambulatory NICOLE JONATHAN Not Available Start: 01-05-2024 End: 01-05-2024 ambulatory Alex [facility] Work Phone: Start: 01-05-2024 End: 01-05-2024 Departed Referred DO Alex Concetta Work Phone: [facility] Start: 01-01-2024 End: 01-01-2024 ambulatory ALEX [...] Available Start: 04-03-2023 End: 04-03-2023 ambulatory Emerald Rosas CORRECTIONS CASEWORKERIzaiah Facility:[facility] Start: 08-15-2022 End: 08-15-2022 ambulatory Trena Wall Other [facility] Other Start: 08-15-2022 Office outpatient ne w 20 minutes Trena Wall [facility] Payers Date Payer Category Payer Self-pay 2021 [facility] [id number] 2000 Unknown [id number] 2.16.8 [id number] 2000 Unknown [id number] 2.16.84 0.1.851548.3.579.2.1259 2000 Unknown [id number] 2.16.84 0.1.657831.3.579.2.9 2000 Unknown [id number] 2.16.84 0.1.648630.3.579.2.1258 2000 Unknown [id number] 2.16.84 0.1.052421.3.579.2.1258 2000 Unknown [id number] 2.16.84 0.1.130363.3.579.2.1258 2000 Unknown [id number] 2.16.84 0.1.317375.3.579.2.1258 2000 Unknown [id number] 2.16.84 0.1.737287.3.579.2.1258 2000 Unknown [id number] 2.16.84 0.1.094407.3.579.2.1258 2000 Unknown [id number] 2.16.84 0.1.934205.3.579.2.1258 2000 Unknown [id number] 2.16.84 0.1.394078.3.579.2.1258 2000 Unknown [id number] 2.16.84 0.1.183060.3.579.2.1258 2000 Unknown [id number] 2.16.84 0.1.348693.3.579.2.1258 2000 Unknown [id number] 2.16.84 0.1.091651.3.579.2.1259 Social History Date Type Detail Facility Unknown if ever smoked [facility] Other Sex Assigned At Sex Assigned At Bir th [facility] Other Start: 2000 Sex Assigned At Female F [facility] Evaluation note 08-15-2022 Note Date & Type Note Facility 08-15-2022 Evaluation note Encounter Date Diagnosis Assessment Notes Jul, Anxiety (ICD-10 - F41.9) Take medication as directed. May cut in half. Follow up with primary care provider if needed or establish with ak [facility] Other Evaluation note Note Date & Type Note Facility Evaluation note No assessment information availa [facility] Work Phone: History general Narrative - Reported Note Date & Type Note Facility History general Narrative - Reported Type Medical History anxiety Surgical History oral surgery [facility] Other Summary Purpose Family History No Family [...] and content) DATE CREATED AUTHOR 01/12/2024 [facility] DATE CREATED AUTHOR AUTHOR'S ORGANIZ ATION 04/04/2024 [facility] DATE CREATED AUTHOR AUTHOR'S ORGANIZ ATION 06/07/2024 [facility] EPIC FOR RECORDS PERTAINING TO [...] BE BASED ON THE PRIMARY CLINICAL RECORDS. [employer] [facility]. provides no warranty or guarantee of the accuracy or completeness of information in this document.
[2024-08-28 02:07] LABS: Age Gdln ACOG Testing Note (.); IGP, rfx Aptima HPV ASCU Note (.)
== END 2024-08-24 20:43 | disposition home or self-care (01) ==
LOC: LAB 20:42
PROVIDERS: Visit Provider Obstetrics & Gynecology
DX: Z01.419 Encounter for gynecological examination (general) (routine) without abnormal findings (principal)
CPT/HCPCS: 88175